=== PATIENT | female | born 1965 | race Caucasian/White ===

== ENCOUNTER 2018-09-04 10:05 | Emergency (ER) | payer BC, OTHER ==
[~2018-09-04] VITALS: Ht 165.1 cm; Wt 78.8 kg
[2018-09-04 10:52] LABS: BASOPHILS # (AUTO) 0.1 X10'3 (0-0.2); BASOPHILS % (AUTO) 0.9 % (0-1); EOSINOPHILS # (AUTO) 0.1 X10'3 (0-0.9); HEMATOCRIT 40.1 % (35.0-45.0); HEMOGLOBIN 13.7 g/dl (12.0-16.0); LYMPHOCYTES # (AUTO) 1.6 X10'3 (1.1-4.8); LYMPHOCYTES % (AUTO) 18.7 % (21-51); MEAN CORPUSCULAR HEMOGLOBIN 33.8 PG (27.0-31.0); MEAN CORPUSCULAR HGB CONC 34.3 g/dL (33.0-36.5); MEAN CORPUSCULAR VOLUME 98.7 FL (78-98); MEAN PLATELET VOLUME 8.1 FL (7.4-10.4); MONOCYTES # (AUTO) 0.9 X10'3 (0-0.9); MONOCYTES % (AUTO) 10.9 % (2-12); NEUTROPHILS # (AUTO) 5.7 X10'3 (1.8-7.7); NEUTROPHILS % (AUTO) 68.5 % (42-75); PLATELET COUNT 263 X10'3 (140-440); RED BLOOD COUNT 4.06 X10'6 (4.20-5.60); RED CELL DISTRIBUTION WIDTH 13.7 % (11.5-14.5); WHITE BLOOD COUNT 8.4 X10'3 (4.5-11.0)
[2018-09-04 10:54] LABS: PROTHROMBIN TIME 10.3 SECONDS (9.0-12.0)
[2018-09-04 10:58] LABS: ALANINE AMINOTRANSFERASE 50 U/L (12-78); ALBUMIN 2.8 G/DL (3.4-5.0); ALBUMIN/GLOBULIN RATIO 0.6 (1.1-1.5); ALKALINE PHOSPHATASE 138 IU/L (46-116); ANION GAP 11 (8-16); ASPARTATE AMINO TRANSFERASE 34 U/L (10-37); BILIRUBIN,TOTAL 0.8 MG/DL (0.1-1.0); BLOOD UREA NITROGEN 13 MG/DL (7-18); BUN/CREATININE RATIO 15.7 (6.6-38.0); CALCIUM 9.2 MG/DL (8.5-10.1); CHLORIDE 100 MMOL/L (99-107); CREATININE 0.83 MG/DL (0.40-0.90); GLUCOSE 106 MG/DL (70-104); POTASSIUM 3.7 MMOL/L (3.5-5.1); SODIUM 135 MMOL/L (135-145); TOTAL CARBON DIOXIDE 23.9 MMOL/L (24-32); TOTAL PROTEIN 7.2 G/DL (6.4-8.2); eGFR 72 ML/MIN
[2018-09-04 12:19] LABS: CLARITY,URINE SLIGHTLY CLOUDY (Clear); COLOR,URINE YELLOW (Yellow); GLUCOSE, URINE NEGATIVE (Neg); KETONES,URINE 40 mg/dl (Neg); LEUKOCYTE ESTERASE ,URINE TRACE (Neg); NITRITES, URINE POSITIVE (Neg); OCCULT BLOOD,URINE MODERATE (Neg); PH,URINE 6.5 (4.8-8.0); PROTEIN,URINE 100 mg/dl (Neg)
[2018-09-04] MEDS ORDERED: LIDOcaine Viscous 15ml cup PO ONE (12:20)
[2018-09-04] MEDS ORDERED: mag hydrox/Alum hydrox/simeth 30ml oral suspension PO ONE (12:20)
[2018-09-04 12:22] LABS: UA COLLECTION TYPE CLN CATCH MIDSTREAM
[2018-09-04 12:27] LABS: MUCUS STRANDS FEW /LPF (Neg); SQUAMOUS EPITHELIAL CELL,UR MODERATE /LPF (FEW)
[2018-09-04 12:29] LABS: BACTERIA,URINE 4+ /HPF (Neg); RBC,URINE 20-50 /HPF (0-2)
[2018-09-04] MEDS ORDERED: ciprofloxacin 250mg tablet PO ONE (12:40)
[2018-09-04] MEDS ORDERED: CIPR-230 PO (13:09)
[2018-09-04] MEDS ORDERED: PANT-47 PO (13:09)
[2018-09-04 13:26] VITALS: BP 140/72
== END 2018-09-04 13:27 | disposition home or self-care (01) ==
LOC: ER 10:06
DX: K92.1 Melena (principal); N39.0 Urinary tract infection, site not specified; Z88.8 Allergy status to other drugs, medicaments and biological substances; Z79.2 Long term (current) use of antibiotics; Z79.899 Other long term (current) drug therapy
CPT/HCPCS: 36415; 76700; 80053; 81001; 85025; 85610; 87077; 87088; 87186; 93005; 99284

== ENCOUNTER 2018-12-05 01:03 | Inpatient (IN) | payer OTHER ==
[~2018-12-05] VITALS: Ht 165.1 cm; Wt 80.0 kg
[2018-12-05] VITALS (23 sets, daily range): BP systolic 147–184; BP diastolic 64–111
[~2018-12-05 01:03] MED LIST: PANT-47 PO
--- NOTE | 2018-12-05 01:27 | NUR ---
CRUZ ARELLANO CHAPERONING DR Moody FOR RECTAL EXAM
[2018-12-05] MEDS ORDERED: normal saline 1000ML IV soln IV ONE (01:30)
--- NOTE | 2018-12-05 01:55 | NUR ---
GISSELLE ARELLANO CHAPERONING DURING GARCIA PLACEMENT AND SUGAR PLACEMENT
[2018-12-05] MEDS ORDERED: NO HOME MEDS (01:59)
[2018-12-05 02:02] LABS: BASOPHILS # (AUTO) 0.1 X10'3 (0-0.2); BASOPHILS % (AUTO) 1.8 % (0-1); EOSINOPHILS # (AUTO) 0.3 X10'3 (0-0.9); EOSINOPHILS % (AUTO) 4.1 % (0-6); HEMATOCRIT 44.4 % (35.0-45.0); LYMPHOCYTES # (AUTO) 2.1 X10'3 (1.1-4.8); LYMPHOCYTES % (AUTO) 27.9 % (21-51); MEAN CORPUSCULAR HEMOGLOBIN 33.6 PG (27.0-31.0); MEAN CORPUSCULAR HGB CONC 33.7 g/dL (33.0-36.5); MEAN CORPUSCULAR VOLUME 99.4 FL (78-98); MEAN PLATELET VOLUME 7.4 FL (7.4-10.4); MONOCYTES # (AUTO) 0.4 X10'3 (0-0.9); MONOCYTES % (AUTO) 5.6 % (2-12); NEUTROPHILS # (AUTO) 4.5 X10'3 (1.8-7.7); NEUTROPHILS % (AUTO) 60.6 % (42-75); PLATELET COUNT 271 X10'3 (140-440); RED BLOOD COUNT 4.47 X10'6 (4.20-5.60); RED CELL DISTRIBUTION WIDTH 15.6 % (11.5-14.5); WHITE BLOOD COUNT 7.4 X10'3 (4.5-11.0)
[2018-12-05 02:03] LABS: CLARITY,URINE CLEAR (Clear); COLOR,URINE YELLOW (Yellow); GLUCOSE, URINE NEGATIVE (Neg); KETONES,URINE NEGATIVE (Neg); LEUKOCYTE ESTERASE ,URINE SMALL (Neg); NITRITES, URINE NEGATIVE (Neg); OCCULT BLOOD,URINE TRACE-INTACT (Neg); PROTEIN,URINE NEGATIVE (Neg); UROBILINOGEN,URINE 0.2 E.U/dL (0.2-1.0)
[2018-12-05 02:08] LABS: UA COLLECTION TYPE FOLEY CATH
[2018-12-05 02:09] LABS: BACTERIA,URINE FEW /HPF (Neg); RBC,URINE 0-2 /HPF (0-2); SQUAMOUS EPITHELIAL CELL,UR FEW /LPF (FEW)
--- NOTE | 2018-12-05 02:17 | NUR ---
RECTUM REDUCED WITH CRUZ RN KINDERGARTEN TEACHER ASSISTANT
--- NOTE | 2018-12-05 02:17 | NUR ---
AREA IRRIGATED AND DRIED, [place] JELLY APPLIED AND GENTLE PUSH AND THE AFFECTED PROLAPSED AREA WENT INTO THE RECTUM AND IMMEDIATELY THE PATIENT WAS RELIEVED OF THE 'PRESSURE'
[2018-12-05 02:24] LABS: PARTIAL THROMBOPLASTIN TIME 28 SECONDS (22-32)
[2018-12-05 02:25] LABS: ALANINE AMINOTRANSFERASE 32 U/L (12-78); ALBUMIN 3.5 G/DL (3.4-5.0); ALBUMIN/GLOBULIN RATIO 0.9 (1.1-1.5); ALKALINE PHOSPHATASE 112 IU/L (46-116); ANION GAP 14 (8-16); ASPARTATE AMINO TRANSFERASE 29 U/L (10-37); BILIRUBIN,TOTAL 0.2 MG/DL (0.1-1.0); BLOOD UREA NITROGEN 10 MG/DL (7-18); BUN/CREATININE RATIO 13.2 (6.6-38.0); CALCIUM 8.8 MG/DL (8.5-10.1); CHLORIDE 106 MMOL/L (99-107); CREATININE 0.76 MG/DL (0.40-0.90); GLUCOSE 118 MG/DL (70-104); SODIUM 143 MMOL/L (135-145); TOTAL PROTEIN 7.2 G/DL (6.4-8.2); eGFR 80 ML/MIN
[2018-12-05] MEDS ORDERED: ondansetron/PF 4mg/2ml inj IV PRN ×2 (04:10→15:15)
[2018-12-05] MEDS ORDERED: magnesium hydroxide 30ml (MOM) UD suspension PO PRN (04:10)
[2018-12-05] MEDS ORDERED: acetaminophen 325mg tablet PO PRN ×2 (04:10)
[2018-12-05] MEDS ORDERED: mag hydrox/Alum hydrox/simeth 30ml oral suspension PO PRN (04:10)
[2018-12-05] MEDS ORDERED: morphine 2 MG/ML inj. syringe IV PRN (04:10)
[2018-12-05] MEDS ORDERED: HYDROcodone/acetaminophen 5mg/325mg tablet PO PRN (04:10)
--- NOTE | 2018-12-05 04:30 | NUR ---
Patient arrived to unit via wheelchair accompanied by pharmacy technician trainee. Patient able to ambulate to bed without assistance. Significant other at patient side. BP 182/90, patient states anxiety due to current situation and hustle and bustle of preparation. Will reassess when calmed. Patient to shower and prepped for surgery. BP now 155/90.
[2018-12-05] MEDS: dextrose 5%-1/2 normal saline 1,000 ML IV SCH ×2 (05:25→19:59)
--- NOTE | 2018-12-05 06:30 | NUR ---
Problems reprioritized. Patient report given, questions answered & plan of care reviewed with EILEEN Jackson.
[2018-12-05] MEDS: nicotine 21mg patch - 24 hr TD SCH (08:00)
[2018-12-05] MEDS ORDERED: ceFAZolin 1GM/D5W- ADD-VANTAGE 50 ML IV ONE (12:00)
[2018-12-05] MEDS ORDERED: ROPIVAcaine 0.5% (5mg/ml) 30ml vial ONE (14:31)
[2018-12-05] MEDS: cefazolin/dext.iso 2gm/100ml 100 ML IV SCH ×2 (14:40→21:24)
--- NOTE | 2018-12-05 14:57 | NUR ---
patient seen by Dr rene is for surgery, preop check list complete. Pre-op Ancef called into pharmacy and will be taken to OR . patient taken down 1450.report called to vika ARELLANO
[2018-12-05] MEDS ORDERED: sevoflurane 250ml liquid IH ONE (15:13)
[2018-12-05] MEDS ORDERED: ringers solution, lacted 1,000 ML IV SCH (15:13)
[2018-12-05] MEDS ORDERED: labetalol 20mg/4ml (5mg/ml) syringe IV PRN (15:15)
[2018-12-05] MEDS ORDERED: morphine 4 MG/ML inj SYRINge IV PRN ×2 (15:15)
[2018-12-05] MEDS ORDERED: hydrALAZINE 20mg/ml inj. IV PRN (15:15)
[2018-12-05] MEDS ORDERED: fentaNYL/PF 50MCG/1 ML 2ML syringe IV PRN (15:15)
[2018-12-05] MEDS ORDERED: midazolam 2 mg/2 ml injection ONE (15:18)
[2018-12-05] MEDS ORDERED: fentaNYL/PF 50MCG/1 ML 2ML syringe ONE ×3 (15:18→16:17)
[2018-12-05] MEDS ORDERED: propofol inj 20 ML IV ONE (15:19)
[2018-12-05] MEDS ORDERED: LIDOcaine 1%/PF 5ML 10 MG/ML VIAL ONE (15:19)
[2018-12-05] MEDS ORDERED: dexamethasone sod phosphate 4mg/ml inj. ONE (15:26)
[2018-12-05] MEDS ORDERED: ondansetron/PF 4mg/2ml inj ONE (15:26)
--- NOTE | 2018-12-05 17:35 | NUR ---
Received from OR via [facility], accompanied by Anesthesiologist DR. KOLB and report given by Anesthesiolgist. PT ARRIVED ON O2 VIA MASK AT 10L. IMMEDIATELY WANTED UP TO THE BATHROOM STATED SHE NEEDED TO "POOP". EXPLAINED TO PT THIS IS A NORMAL FEELING AND SHE CAN NOT GET UP TO COMMODE, PLACED PT ON BEDPAN. ROBERT WITH GOOD CSM. PULSES AND SECOND FLOOR OPERATOR WNL T/O. FC IN PLACE WITH CLEAR DARK URINE
[2018-12-05] MEDS: fentaNYL/PF 50MCG/1 ML 2ML syringe IV PRN ×2 (17:42→17:46)
--- NOTE | 2018-12-05 18:41 | NUR ---
patient still in OR report given to Mary ARELLANO
--- NOTE | 2018-12-05 18:45 | NUR ---
I got report from Renetta ARELLANO on patient who is still in recovery. 1847 Awilda ARELLANO from recovery called and gave me report, I had the opportunity to ask questions,
--- NOTE | 2018-12-05 19:00 | NUR ---
ALL CRITERIA FOR TRANSFER TO THE FLOOR HAS BEEN ACHIEVED. VSS. BED LOW, CALL LIGHT AND VS. SET IN PLACE. RN PRESENT TO ACCEPT CARE. PATIENT RESTING COMFORTABLY IN BED. BELONGINGS SENT WITH PATIENT. DRESSINGS CDI.
--- NOTE | 2018-12-05 19:04 | NUR ---
Patent arrived via bed with Claudette ARELLANO and another RN. Family at bedside, patient hooked up to post op vitals, and eating ice chips. Does not appear to be in no apparent distress. Will continue to monitor.
[2018-12-05] MEDS: HYDROcodone/acetaminophen 10/325mg tab PO PRN (19:57)
[2018-12-05] MEDS ORDERED: cloNIDine 0.1 mg tablet PO ONE (20:20)
[2018-12-06] VITALS: BP 121/65
[2018-12-06] MEDS: dextrose 5%-1/2 normal saline 1,000 ML IV SCH ×2 (00:09→07:24)
[2018-12-06] MEDS: morphine 2 MG/ML inj. syringe IV PRN ×3 (00:11→13:58)
--- NOTE | 2018-12-06 02:55 | NUR ---
Student documentation: I have reviewed and agree with all interventions, assessments performed and documented by EILEEN Karimi. Addendum: 12/06/18 at 0255 by Ruchi Mack RN Amended: Links added.
[2018-12-06 05:10] LABS: BASOPHILS % (AUTO) 0.2 % (0-1); EOSINOPHILS % (AUTO) 0 % (0-6); HEMATOCRIT 34.8 % (35.0-45.0); HEMOGLOBIN 11.9 g/dl (12.0-16.0); MEAN CORPUSCULAR HEMOGLOBIN 33.4 PG (27.0-31.0); MEAN CORPUSCULAR HGB CONC 34.2 g/dL (33.0-36.5); MEAN CORPUSCULAR VOLUME 97.6 FL (78-98); MEAN PLATELET VOLUME 7.3 FL (7.4-10.4); MONOCYTES # (AUTO) 0.5 X10'3 (0-0.9); MONOCYTES % (AUTO) 4.7 % (2-12); NEUTROPHILS # (AUTO) 9.7 X10'3 (1.8-7.7); NEUTROPHILS % (AUTO) 86.1 % (42-75); PLATELET COUNT 253 X10'3 (140-440); RED BLOOD COUNT 3.57 X10'6 (4.20-5.60); RED CELL DISTRIBUTION WIDTH 15.3 % (11.5-14.5); WHITE BLOOD COUNT 11.3 X10'3 (4.5-11.0)
[2018-12-06] MEDS: cefazolin/dext.iso 2gm/100ml 100 ML IV SCH ×3 (05:10→15:28)
[2018-12-06 05:48] LABS: ALBUMIN 2.7 G/DL (3.4-5.0); ANION GAP 9 (8-16); BLOOD UREA NITROGEN 6 MG/DL (7-18); BUN/CREATININE RATIO 8.3 (6.6-38.0); CALCIUM 8.3 MG/DL (8.5-10.1); CHLORIDE 104 MMOL/L (99-107); CREATININE 0.72 MG/DL (0.40-0.90); GLUCOSE 154 MG/DL (70-104); POTASSIUM 4.2 MMOL/L (3.5-5.1); SODIUM 137 MMOL/L (135-145); TOTAL CARBON DIOXIDE 24.1 MMOL/L (24-32); eGFR 85 ML/MIN
--- NOTE | 2018-12-06 06:33 | NUR ---
Patient in room [facility] 354. I have received report from Odalys ARELLANO and had the opportunity to ask questions and assume patient care.
[2018-12-06 07:08] VITALS: BP 140/72
[2018-12-06] MEDS: nicotine 21mg patch - 24 hr TD SCH (07:50)
[2018-12-06] MEDS: HYDROcodone/acetaminophen 10/325mg tab PO PRN ×3 (10:21→19:59)
[2018-12-06] MEDS: docusate sod 100mg capsule PO SCH (19:58)
[2018-12-06 20:00] VITALS: BP 144/72
[2018-12-07] VITALS: BP 128/70
[2018-12-07] MEDS: cefazolin/dext.iso 2gm/100ml 100 ML IV SCH ×3 (00:16→16:33)
[2018-12-07] MEDS: morphine 2 MG/ML inj. syringe IV PRN (00:25)
[2018-12-07] MEDS: HYDROcodone/acetaminophen 10/325mg tab PO PRN ×5 (03:13→23:08)
[2018-12-07 04:39] LABS: BASOPHILS # (AUTO) 0.1 X10'3 (0-0.2); BASOPHILS % (AUTO) 0.7 % (0-1); EOSINOPHILS # (AUTO) 0.1 X10'3 (0-0.9); EOSINOPHILS % (AUTO) 1.2 % (0-6); HEMATOCRIT 32.6 % (35.0-45.0); HEMOGLOBIN 11.4 g/dl (12.0-16.0); LYMPHOCYTES # (AUTO) 1.8 X10'3 (1.1-4.8); MEAN CORPUSCULAR HEMOGLOBIN 34.3 PG (27.0-31.0); MEAN CORPUSCULAR VOLUME 98.1 FL (78-98); MEAN PLATELET VOLUME 7.4 FL (7.4-10.4); MONOCYTES # (AUTO) 0.6 X10'3 (0-0.9); MONOCYTES % (AUTO) 6.8 % (2-12); NEUTROPHILS # (AUTO) 5.9 X10'3 (1.8-7.7); NEUTROPHILS % (AUTO) 70.3 % (42-75); PLATELET COUNT 212 X10'3 (140-440); RED BLOOD COUNT 3.33 X10'6 (4.20-5.60); RED CELL DISTRIBUTION WIDTH 15.6 % (11.5-14.5); WHITE BLOOD COUNT 8.4 X10'3 (4.5-11.0)
[2018-12-07 04:54] LABS: ALBUMIN 2.7 G/DL (3.4-5.0); ANION GAP 8 (8-16); BLOOD UREA NITROGEN 5 MG/DL (7-18); BUN/CREATININE RATIO 7.5 (6.6-38.0); CALCIUM 8.4 MG/DL (8.5-10.1); CHLORIDE 104 MMOL/L (99-107); CREATININE 0.67 MG/DL (0.40-0.90); GLUCOSE 121 MG/DL (70-104); POTASSIUM 3.3 MMOL/L (3.5-5.1); SODIUM 138 MMOL/L (135-145); TOTAL CARBON DIOXIDE 25.8 MMOL/L (24-32); eGFR > 90 ML/MIN
--- NOTE | 2018-12-07 06:10 | NUR ---
Patient in room [facility]BI[facility] 354. I have received report from Karla RN and Trev RN and had the opportunity to ask questions and assume patient care.
--- NOTE | 2018-12-07 06:28 | NUR ---
Problems reprioritized. Patient report given, questions answered & plan of care reviewed with Mona ARELLANO.
--- NOTE | 2018-12-07 06:29 | NUR ---
New bag of D5 1/2 normal saline hanged.
[2018-12-07 07:45] VITALS: BP 151/80
[2018-12-07] MEDS: nicotine 21mg patch - 24 hr TD SCH (08:00)
[2018-12-07] MEDS: docusate sod 100mg capsule PO SCH ×2 (08:29→20:08)
[2018-12-07] MEDS: dextrose 5%-1/2 normal saline 1,000 ML IV SCH ×2 (11:50→19:57)
[2018-12-07] MEDS ORDERED: potassium Cl 20 mEq SR tablet PO STA (11:50)
[2018-12-07 11:56] VITALS: BP 140/68
[2018-12-07 19:00] VITALS: BP 153/74
--- NOTE | 2018-12-07 19:44 | NUR ---
Patient in room [facility]BI[facility] 354. I have received report from Anupama ARELLANO and had the opportunity to ask questions and assume patient care.
[2018-12-08] VITALS: BP 124/59
[2018-12-08] MEDS: cefazolin/dext.iso 2gm/100ml 100 ML IV SCH ×2 (00:26→08:00)
[2018-12-08 04:52] LABS: BASOPHILS # (AUTO) 0.1 X10'3 (0-0.2); BASOPHILS % (AUTO) 0.6 % (0-1); EOSINOPHILS # (AUTO) 0.2 X10'3 (0-0.9); HEMATOCRIT 33.5 % (35.0-45.0); HEMOGLOBIN 11.6 g/dl (12.0-16.0); LYMPHOCYTES % (AUTO) 23.6 % (21-51); MEAN CORPUSCULAR HEMOGLOBIN 34.5 PG (27.0-31.0); MEAN CORPUSCULAR HGB CONC 34.6 g/dL (33.0-36.5); MEAN CORPUSCULAR VOLUME 99.6 FL (78-98); MEAN PLATELET VOLUME 7.3 FL (7.4-10.4); MONOCYTES # (AUTO) 0.6 X10'3 (0-0.9); MONOCYTES % (AUTO) 7.1 % (2-12); NEUTROPHILS # (AUTO) 5.5 X10'3 (1.8-7.7); NEUTROPHILS % (AUTO) 65.7 % (42-75); PLATELET COUNT 225 X10'3 (140-440); RED BLOOD COUNT 3.36 X10'6 (4.20-5.60); RED CELL DISTRIBUTION WIDTH 15.3 % (11.5-14.5); WHITE BLOOD COUNT 8.4 X10'3 (4.5-11.0)
[2018-12-08 04:58] LABS: ALBUMIN 2.6 G/DL (3.4-5.0); ANION GAP 6 (8-16); BLOOD UREA NITROGEN 3 MG/DL (7-18); BUN/CREATININE RATIO 4.5 (6.6-38.0); CALCIUM 8.9 MG/DL (8.5-10.1); CHLORIDE 105 MMOL/L (99-107); CREATININE 0.67 MG/DL (0.40-0.90); GLUCOSE 95 MG/DL (70-104); POTASSIUM 3.9 MMOL/L (3.5-5.1); SODIUM 139 MMOL/L (135-145); TOTAL CARBON DIOXIDE 27.6 MMOL/L (24-32); eGFR > 90 ML/MIN
[2018-12-08] MEDS: HYDROcodone/acetaminophen 10/325mg tab PO PRN ×2 (06:04→10:15)
[2018-12-08 07:00] VITALS: BP 146/76
--- NOTE | 2018-12-08 07:07 | NUR ---
Problems reprioritized. Patient report given, questions answered & plan of care reviewed with Lilliana ARELLANO.
[2018-12-08] MEDS: nicotine 21mg patch - 24 hr TD SCH (08:00)
[2018-12-08] MEDS: docusate sod 100mg capsule PO SCH (08:22)
--- NOTE | 2018-12-08 09:06 | NUR ---
PER DR SEGURA, OK TO NON ADMIN IV ABX D/T PTS IV FELL OUT.
[2018-12-08 11:40] VITALS: BP 141/81
[2018-12-08] MEDS ORDERED: HYDR-4383 PO (11:43)
[2018-12-08] MEDS ORDERED: DOCU-28 PO (11:43)
--- NOTE | 2018-12-08 13:30 | NUR ---
PT DISCHARGED IN STABLE CONDITION. LEFT FACILITY IN STABLE CONDITION. NO IV AT TIME OF DC. ALL BELONGINGS IN HAND, INCLUDING RX FOR NORCO DELIVERED BY [facility]. FOLLOW UP INSTRUCTIONS GIVEN, ALL QUESTIONS ANSWERED. Addendum: 12/08/18 at 1508 by Josiane Davis RN Amended: Links added.
== END 2018-12-08 13:34 | disposition home or self-care (01) | DRG 395 ==
LOC: ER 01:03 → SUR 3N 04:00 → CMPBEDREQ 05:01
PROVIDERS: ADMIT Internal Medicine; ATTEND Internal Medicine
PROC: 0DBP8ZZ Excision of Rectum, Via Natural or Artificial Opening Endoscopic (ICD-10-PCS; principal; 2018-12-05 15:13)
DX: K62.3 Rectal prolapse (principal); F12.90 Cannabis use, unspecified, uncomplicated; F17.210 Nicotine dependence, cigarettes, uncomplicated; I10 Essential (primary) hypertension; K62.1 Rectal polyp; K64.4 Residual hemorrhoidal skin tags; K59.00 Constipation, unspecified; Z88.8 Allergy status to other drugs, medicaments and biological substances
CPT/HCPCS: 96360; 99285; Z7506; 36415; 71045; 80048; 80053; 81001; 85025; 85610; 85730; 86885; 86900; 86901; 87070; 87088; 93005; A6224; A6449; A7000; G0378; J0690; J1100; J2001; J2250; J2270; J2405; J2704; J2795; J3010; J3490; J7120

== ENCOUNTER 2019-01-23 09:05 | Emergency (ER) | payer OTHER ==
[~2019-01-23] VITALS: Ht 165.1 cm; Wt 76.7 kg
[2019-01-23] VITALS (7 sets, daily range): BP systolic 129–159; BP diastolic 48–81
[~2019-01-23 09:05] MED LIST changes: +DOCU-28 PO; +HYDR-4383 PO; -PANT-47 PO
--- NOTE | 2019-01-23 09:15 | NUR ---
PT. WAS CHECKED IN THROUGH ER AND TRIAGED. PT. STATED THAT SHE HAD A PROLAPSED RECTUM THAT WAS FIXED BY DR. CASTILLO IN OCTOBER. SHE STATED SHE SAW HIM YESTERDAY IN HIS OFFFICE AND WANTED HER TO COME TO THE HOSPITAL SO SHE COULD BE WORKED INTO HIS OR SCHEDULE TODAY.... TYPING ELEMENT MACHINE OPERATOR WAS NOTIFIED AND SHE IS TRYING TO FIND DR. CASTILLO TO WRITE ORDERS. I INFORMED THE PT. THAT NEW PAPER WORK WOULD BE DONE AND SHE WOULD GO TO THE PASS UNIT AND WAIT FOR DR. CASTILLO...
[2019-01-23] MEDS ORDERED: ondansetron/PF 4mg/2ml inj IV ONE (10:55)
[2019-01-23] MEDS ORDERED: normal saline 1000ML IV soln IVB ONE (10:55)
[2019-01-23] MEDS ORDERED: morphine 4 MG/ML inj SYRINge IV PRN ×3 (10:55→11:35)
[2019-01-23 11:27] LABS: BASOPHILS # (AUTO) 0.1 X10'3 (0-0.2); EOSINOPHILS # (AUTO) 0.2 X10'3 (0-0.9); EOSINOPHILS % (AUTO) 2.7 % (0-6); HEMATOCRIT 42.2 % (35.0-45.0); HEMOGLOBIN 14.6 g/dl (12.0-16.0); LYMPHOCYTES # (AUTO) 2.3 X10'3 (1.1-4.8); LYMPHOCYTES % (AUTO) 32.2 % (21-51); MEAN CORPUSCULAR HEMOGLOBIN 35.4 PG (27.0-31.0); MEAN CORPUSCULAR HGB CONC 34.5 g/dL (33.0-36.5); MEAN CORPUSCULAR VOLUME 102.6 FL (78-98); MEAN PLATELET VOLUME 7.2 FL (7.4-10.4); MONOCYTES # (AUTO) 0.3 X10'3 (0-0.9); MONOCYTES % (AUTO) 4.1 % (2-12); NEUTROPHILS # (AUTO) 4.3 X10'3 (1.8-7.7); PLATELET COUNT 303 X10'3 (140-440); RED BLOOD COUNT 4.11 X10'6 (4.20-5.60); RED CELL DISTRIBUTION WIDTH 16.6 % (11.5-14.5); WHITE BLOOD COUNT 7.3 X10'3 (4.5-11.0)
[2019-01-23] MEDS ORDERED: ringers solution, lacted 1,000 ML IV SCH (11:32)
[2019-01-23] MEDS ORDERED: ondansetron/PF 4mg/2ml inj IV PRN (11:35)
[2019-01-23] MEDS ORDERED: proCHLORperazine 10 MG/2 ml inj IV PRN (11:35)
--- NOTE | 2019-01-23 11:40 | NUR ---
TO SAME DAY SURGERY PER JUAN J, ACCOMPANIED BY STAFF AND SIG OTHER. PATIENT ALERT AND COOPERATIVE. IV PATENT AND INFUSING WELL.
[2019-01-23 11:43] LABS: ALANINE AMINOTRANSFERASE 24 U/L (12-78); ALBUMIN 3.4 G/DL (3.4-5.0); ALBUMIN/GLOBULIN RATIO 0.9 (1.1-1.5); ALKALINE PHOSPHATASE 99 IU/L (46-116); ANION GAP 9 (8-16); ASPARTATE AMINO TRANSFERASE 17 U/L (10-37); BILIRUBIN,TOTAL 0.3 MG/DL (0.1-1.0); BLOOD UREA NITROGEN 8 MG/DL (7-18); BUN/CREATININE RATIO 10.7 (6.6-38.0); CALCIUM 9.1 MG/DL (8.5-10.1); CHLORIDE 106 MMOL/L (99-107); CREATININE 0.75 MG/DL (0.40-0.90); GLUCOSE 100 MG/DL (70-104); POTASSIUM 3.7 MMOL/L (3.5-5.1); SODIUM 142 MMOL/L (135-145); TOTAL CARBON DIOXIDE 27.3 MMOL/L (24-32); eGFR 81 ML/MIN
[2019-01-23 11:51] LABS: CLARITY,URINE CLEAR (Clear); COLOR,URINE YELLOW (Yellow); GLUCOSE, URINE NEGATIVE (Neg); KETONES,URINE NEGATIVE (Neg); LEUKOCYTE ESTERASE ,URINE NEGATIVE (Neg); NITRITES, URINE NEGATIVE (Neg); OCCULT BLOOD,URINE NEGATIVE (Neg); PH,URINE 6.5 (4.8-8.0); PROTEIN,URINE 30 mg/dl (Neg); URINE HCG NEGATIVE (NEG)
[2019-01-23 11:52] LABS: UA COLLECTION TYPE CLN CATCH MIDSTREAM
[2019-01-23] MEDS ORDERED: ipratropium/albuterol 3ml nebule NEB PRN (11:55)
[2019-01-23 11:59] LABS: BACTERIA,URINE FEW /HPF (Neg); MUCUS STRANDS FEW /LPF (Neg); RBC,URINE 0-2 /HPF (0-2); SQUAMOUS EPITHELIAL CELL,UR MODERATE /LPF (FEW)
[2019-01-23] MEDS ORDERED: ROPIVAcaine 0.5% (5mg/ml) 30ml vial ONE (12:01)
[2019-01-23] MEDS ORDERED: sevoflurane 250ml liquid IH ONE (12:17)
[2019-01-23] MEDS ORDERED: dexamethasone sod phosphate 10mg/ml inj ONE (12:17)
[2019-01-23] MEDS ORDERED: midazolam 2 mg/2 ml injection ONE (12:21)
[2019-01-23] MEDS ORDERED: fentaNYL/PF 50MCG/1 ML 2ML syringe ONE (12:21)
[2019-01-23] MEDS ORDERED: LIDOcaine 2% (20mg/ml) 5ml vial ONE (12:23)
[2019-01-23] MEDS ORDERED: propofol inj 20 ML IV ONE ×2 (12:23→13:04)
[2019-01-23] MEDS ORDERED: labetalol 20mg/4ml (5mg/ml) syringe IV ONE (13:08)
--- NOTE | 2019-01-23 13:20 | NUR ---
Received from OR via [facility], accompanied by Anesthesiologist DAVE and report given by Anesthesiolgist. PT SLEEPY, OXYGENATING WELL ON 10 LPM O2 VIA MASK, NO RESP DISTRESS NOTED. PT DENIES NAUSEA [place] PAIN AT THIS TIME. BULKY DSG TO LISETTE ANAL AREA, CDI. VSS.
--- NOTE | 2019-01-23 15:00 | NUR ---
PT DENIES PAIN, VSS. TOLERATING PO FLUIDS WELL. DC INSTRUCTIONS EXPLAINED TO PT AND HER S/O, THEY VERBALIZED UNDERSTANDING. PAIN PRESCRIPTION PROVIDED TO PT. DCD IN STABLE CONDITION, TAKEN TO CAR VIA WC.
== END 2019-01-23 15:00 | disposition home or self-care (01) ==
LOC: ER 09:06
DX: Q43.8 Other specified congenital malformations of intestine (principal); I10 Essential (primary) hypertension; F17.210 Nicotine dependence, cigarettes, uncomplicated; R06.02 Shortness of breath; Z88.5 Allergy status to narcotic agent; Z98.890 Other specified postprocedural states
CPT/HCPCS: 36415; 45910; 80053; 81001; 81025; 85025; 87088; 94640; 94760; 96374; 96375; 99285; A6224; J1100; J2001; J2250; J2270; J2405; J2704; J3010; J7030; A4215; A4618; A6449; A7000; J2795; J3490; J7120

== ENCOUNTER 2020-01-19 20:08 | Emergency (ER) | payer MEDICAID, SELFPAY ==
[~2020-01-19] VITALS: Ht 165.1 cm; Wt 77.2 kg
[2020-01-19] MEDS ORDERED: normal saline 1000ML IV soln IVB ONE (20:25)
[2020-01-19 20:43] LABS: ALANINE AMINOTRANSFERASE 28 U/L (12-78); ALBUMIN 3.5 G/DL (3.4-5.0); ALBUMIN/GLOBULIN RATIO 1.1 (1.1-1.5); ALKALINE PHOSPHATASE 100 IU/L (46-116); ANION GAP 14 (8-16); ASPARTATE AMINO TRANSFERASE 17 U/L (10-37); BILIRUBIN,TOTAL 0.2 MG/DL (0.1-1.0); BLOOD UREA NITROGEN 6 MG/DL (7-18); BUN/CREATININE RATIO 4.6 (6.6-38.0); CALCIUM 8.2 MG/DL (8.5-10.1); CHLORIDE 113 MMOL/L (99-107); ETHANOL 0.181 GM/DL (0.0-0.010); GLUCOSE 158 MG/DL (70-104); SODIUM 148 MMOL/L (135-145); TOTAL CARBON DIOXIDE 21.3 MMOL/L (24-32); TOTAL PROTEIN 6.8 G/DL (6.4-8.2); eGFR 43 ML/MIN
[2020-01-19 20:45] LABS: BASOPHILS # (AUTO) 0.1 X10'3 (0-0.2); BASOPHILS % (AUTO) 0.8 % (0-1); EOSINOPHILS # (AUTO) 0.3 X10'3 (0-0.9); EOSINOPHILS % (AUTO) 2.4 % (0-6); HEMATOCRIT 42.7 % (35.0-45.0); HEMOGLOBIN 14.4 g/dl (12.0-16.0); LYMPHOCYTES % (AUTO) 29.7 % (21-51); MEAN CORPUSCULAR HEMOGLOBIN 34.4 PG (27.0-31.0); MEAN CORPUSCULAR HGB CONC 33.8 g/dL (33.0-36.5); MEAN CORPUSCULAR VOLUME 101.8 FL (78-98); MEAN PLATELET VOLUME 7.5 FL (7.4-10.4); MONOCYTES # (AUTO) 0.6 X10'3 (0-0.9); MONOCYTES % (AUTO) 4.5 % (2-12); NEUTROPHILS # (AUTO) 8.4 X10'3 (1.8-7.7); NEUTROPHILS % (AUTO) 62.6 % (42-75); PLATELET COUNT 252 X10'3 (140-440); WHITE BLOOD COUNT 13.4 X10'3 (4.5-11.0)
[2020-01-19 20:47] LABS: POTASSIUM 2.9 MMOL/L (3.5-5.1)
[2020-01-19] MEDS ORDERED: potassium Cl 20 mEq SR tablet PO ONE (20:50)
[2020-01-19] MEDS ORDERED: potassium Cl 10 mEq/100mL bag IV ONE (20:50)
[2020-01-19 21:28] LABS: CLARITY,URINE CLOUDY (Clear); COLOR,URINE YELLOW (Yellow); GLUCOSE, URINE 100 mg/dl (Neg); KETONES,URINE NEGATIVE (Neg); LEUKOCYTE ESTERASE ,URINE MODERATE (Neg); NITRITES, URINE NEGATIVE (Neg); OCCULT BLOOD,URINE LARGE (Neg); PROTEIN,URINE >=300 mg/dl (Neg); UROBILINOGEN,URINE 0.2 E.U/dL (0.2-1.0)
[2020-01-19 21:35] LABS: UA COLLECTION TYPE CLN CATCH MIDSTREAM
--- NOTE | 2020-01-19 21:35 | NUR ---
Spoke W/ pt. family both Son Lyndon Trevizo and Linette Trevizo. daughter stated that she would be avalible for a ride.
[2020-01-19 21:36] LABS: BACTERIA,URINE FEW /HPF (Neg); SQUAMOUS EPITHELIAL CELL,UR FEW /LPF (FEW); WBC CLUMPS,URINE MODERATE /HPF (NEGATIVE); WBC,URINE TNTC /HPF (0-4)
[2020-01-19 22:20] LABS: URINE AMPHETAMINE SCREEN NEGATIVE (Neg); URINE BARBITUATE SCREEN NEGATIVE (Neg); URINE BENZODIAZEPINES SCREEN NEGATIVE (Neg); URINE CANNABINOID SCREEN NEGATIVE (Neg); URINE COCAINE SCREEN NEGATIVE (Neg); URINE METHADONE SCREEN NEGATIVE (Neg); URINE OPIATE SCREEN NEGATIVE (Neg); URINE PHENCYCLIDINE SCREEN NEGATIVE (Neg)
[2020-01-19 22:29] VITALS: BP 131/64
== END 2020-01-19 22:30 | disposition home or self-care (01) ==
LOC: ER 20:09
DX: S09.90XA Unspecified injury of head, initial encounter (principal); S16.1XXA Strain of muscle, fascia and tendon at neck level, initial encounter; E87.6 Hypokalemia; R55 Syncope and collapse; F10.920 Alcohol use, unspecified with intoxication, uncomplicated; I10 Essential (primary) hypertension; J45.909 Unspecified asthma, uncomplicated; F17.200 Nicotine dependence, unspecified, uncomplicated; Z98.51 Tubal ligation status; Z98.890 Other specified postprocedural states; Z72.89 Other problems related to lifestyle; Z88.8 Allergy status to other drugs, medicaments and biological substances; Z79.899 Other long term (current) drug therapy; W19.XXXA Unspecified fall, initial encounter; Y93.89 Activity, other specified; Y92.828 Other wilderness area as the place of occurrence of the external cause; Y99.8 Other external cause status; Y90.9 Presence of alcohol in blood, level not specified
CPT/HCPCS: 36415; 70450; 71045; 72125; 80053; 80305; 80320; 81001; 85025; 87088; 93005; 96361; 96365; 99285; J3480; J7030; 96374

== ENCOUNTER 2020-09-20 11:14 | Emergency (ER) | payer MEDICAID ==
[~2020-09-20] VITALS: Ht 165.1 cm; Wt 82.4 kg
[2020-09-20] MEDS ORDERED: orphenadrine citrate 60mg/2ml inj. IM ONE (11:40)
[2020-09-20] MEDS ORDERED: ketorolac tromethamine 15mg/ml inj. IM ONE (11:40)
[2020-09-20] MEDS ORDERED: IBUP-1984 PO (11:41)
[2020-09-20] MEDS ORDERED: ORPH100T2 PO (11:41)
[2020-09-20 11:58] VITALS: BP 164/71
== END 2020-09-20 12:04 | disposition home or self-care (01) ==
LOC: ER 11:14
DX: M54.42 Lumbago with sciatica, left side (principal); G89.29 Other chronic pain; I10 Essential (primary) hypertension; J45.909 Unspecified asthma, uncomplicated; Z98.890 Other specified postprocedural states; Z98.51 Tubal ligation status; Z72.89 Other problems related to lifestyle; Z79.899 Other long term (current) drug therapy
CPT/HCPCS: 96372; 99284; J1885; J2360

== ENCOUNTER 2021-11-05 10:47 | Emergency (ER) | payer MEDICAID ==
[~2021-11-05] VITALS: Ht 165.1 cm; Wt 84.1 kg
[~2021-11-05 10:47] MED LIST changes: +ORPH100T2 PO
[2021-11-05 11:18] LABS: BASOPHILS # (AUTO) 0.1 X10'3 (0-0.2); EOSINOPHILS # (AUTO) 0.1 X10'3 (0-0.9); EOSINOPHILS % (AUTO) 1.3 % (0-6); HEMATOCRIT 42.8 % (35.0-45.0); HEMOGLOBIN 14.6 g/dl (12.0-16.0); LYMPHOCYTES # (AUTO) 1.8 X10'3 (1.1-4.8); LYMPHOCYTES % (AUTO) 22.7 % (21-51); MEAN CORPUSCULAR HEMOGLOBIN 34.8 PG (27.0-31.0); MEAN CORPUSCULAR HGB CONC 34.2 g/dL (33.0-36.5); MEAN CORPUSCULAR VOLUME 101.8 FL (78-98); MONOCYTES # (AUTO) 0.4 X10'3 (0-0.9); MONOCYTES % (AUTO) 4.5 % (2-12); NEUTROPHILS # (AUTO) 5.7 X10'3 (1.8-7.7); NEUTROPHILS % (AUTO) 70.5 % (42-75); PLATELET COUNT 256 X10'3 (140-440); RED CELL DISTRIBUTION WIDTH 14.7 % (11.5-14.5); WHITE BLOOD COUNT 8.1 X10'3 (4.5-11.0)
[2021-11-05 11:48] LABS: ALANINE AMINOTRANSFERASE 30 U/L (12-78); ALBUMIN 3.9 G/DL (3.4-5.0); ALBUMIN/GLOBULIN RATIO 1.1 (1.1-1.5); ALKALINE PHOSPHATASE 90 IU/L (46-116); ANION GAP 13 (8-16); ASPARTATE AMINO TRANSFERASE 30 U/L (10-37); BILIRUBIN,TOTAL 0.5 MG/DL (0.1-1.0); BLOOD UREA NITROGEN 10 MG/DL (7-18); CALCIUM 8.9 MG/DL (8.5-10.1); CHLORIDE 106 MMOL/L (99-107); CREATININE 0.83 MG/DL (0.40-0.90); GLUCOSE 106 MG/DL (70-104); LIPASE 62 U/L (73-393); POTASSIUM 4.2 MMOL/L (3.5-5.1); SODIUM 143 MMOL/L (135-145); TOTAL CARBON DIOXIDE 23.9 MMOL/L (24-32); TOTAL PROTEIN 7.4 G/DL (6.4-8.2); eGFR 72 ML/MIN
[2021-11-05 12:08] LABS: CLARITY,URINE CLOUDY (Clear); COLOR,URINE YELLOW (Yellow); GLUCOSE, URINE NEGATIVE (Neg); KETONES,URINE NEGATIVE (Neg); LEUKOCYTE ESTERASE ,URINE NEGATIVE (Neg); NITRITES, URINE NEGATIVE (Neg); OCCULT BLOOD,URINE NEGATIVE (Neg); PH,URINE 6.5 (4.8-8.0); PROTEIN,URINE TRACE mg/dl (Neg); UROBILINOGEN,URINE 0.2 E.U/dL (0.2-1.0)
[2021-11-05 12:09] LABS: UA COLLECTION TYPE CLN CATCH MIDSTREAM
[2021-11-05 12:13] LABS: URINE HCG NEGATIVE (NEG)
[2021-11-05 12:16] LABS: BACTERIA,URINE 2+ /HPF (Neg); MUCUS STRANDS FEW /LPF (Neg); SQUAMOUS EPITHELIAL CELL,UR MANY /LPF (FEW); WBC,URINE 0-4 /HPF (0-4)
[2021-11-05] MEDS ORDERED: morphine 4 MG/ML inj SYRINge IV PRN (14:00)
[2021-11-05] MEDS ORDERED: IOHEXOL 12MG/ML oral solution 500 ML BOTTLE PO ONE (14:00)
[2021-11-05] MEDS ORDERED: normal saline 1000ML IV soln IVB ONE (14:00)
[2021-11-05] MEDS ORDERED: ondansetron/PF 4mg/2ml inj IV ONE (14:00)
--- NOTE | 2021-11-05 15:31 | NUR ---
pt is resting quietly on gurney, drinking contrast, lilly well, no n/v, career technology teacher is aware
--- NOTE | 2021-11-05 15:56 | NUR ---
PT IS RESTING QUIETLY, SAID PAIN IS DOWN TO 4/10, PLAYING ON PHONE
--- NOTE | 2021-11-05 18:39 | NUR ---
pt stated she had a large bowel movement before going to CT earlier. Pt is resting quietly on bed, family at bedside
[2021-11-05 19:27] VITALS: BP 141/78
== END 2021-11-05 19:28 | disposition home or self-care (01) ==
LOC: ER 10:48
DX: G89.29 Other chronic pain (principal); R10.9 Unspecified abdominal pain; K59.00 Constipation, unspecified; R19.7 Diarrhea, unspecified; I10 Essential (primary) hypertension; J45.909 Unspecified asthma, uncomplicated; Z88.5 Allergy status to narcotic agent; Z79.899 Other long term (current) drug therapy
CPT/HCPCS: 36415; 74176; 80053; 81001; 81025; 83690; 85025; 96374; 96375; 99285; J2270; J2405; J7030

== ENCOUNTER 2022-06-21 12:30 | Emergency (ER) | payer MEDICAID ==
[~2022-06-21] VITALS: Ht 162.6 cm; Wt 77.3 kg
[2022-06-21 12:55] VITALS: BP 144/82
[2022-06-21 13:56] LABS: BASOPHILS % (AUTO) 0.6 % (0-1); EOSINOPHILS # (AUTO) 0.1 X10'3 (0-0.9); EOSINOPHILS % (AUTO) 2.1 % (0-6); HEMOGLOBIN 12.3 g/dl (12.0-16.0); LYMPHOCYTES # (AUTO) 1.5 X10'3 (1.1-4.8); LYMPHOCYTES % (AUTO) 25.3 % (21-51); MEAN CORPUSCULAR HEMOGLOBIN 46.2 PG (27.0-31.0); MEAN CORPUSCULAR HGB CONC 35.1 g/dL (33.0-36.5); MEAN CORPUSCULAR VOLUME 131.7 FL (78-98); MEAN PLATELET VOLUME 8.2 FL (7.4-10.4); MONOCYTES # (AUTO) 0.2 X10'3 (0-0.9); MONOCYTES % (AUTO) 4.1 % (2-12); NEUTROPHILS # (AUTO) 4.1 X10'3 (1.8-7.7); NEUTROPHILS % (AUTO) 67.9 % (42-75); PLATELET COUNT 183 X10'3 (140-440); RED BLOOD COUNT 2.66 X10'6 (4.20-5.60); RED CELL DISTRIBUTION WIDTH 16.9 % (11.5-14.5)
[2022-06-21 14:02] LABS: ALANINE AMINOTRANSFERASE 52 U/L (12-78); ALBUMIN 3.2 G/DL (3.4-5.0); ALKALINE PHOSPHATASE 134 IU/L (46-116); ASPARTATE AMINO TRANSFERASE 70 U/L (10-37); BILIRUBIN,TOTAL 1.1 MG/DL (0.1-1.0); BLOOD UREA NITROGEN 13 MG/DL (7-18); BUN/CREATININE RATIO 14.3 (6.6-38.0); CALCIUM 8.6 MG/DL (8.5-10.1); CHLORIDE 104 MMOL/L (99-107); CREATININE 0.91 MG/DL (0.40-0.90); GLUCOSE 141 MG/DL (70-104); LIPASE 60 U/L (73-393); TOTAL CARBON DIOXIDE 28.8 MMOL/L (24-32); TOTAL PROTEIN 6.5 G/DL (6.4-8.2); eGFR 64 ML/MIN
[2022-06-21 14:17] LABS: ANION GAP 7 (8-16); SODIUM 140 MMOL/L (135-145)
[2022-06-21 14:19] LABS: POTASSIUM 2.6 MMOL/L (3.5-5.1)
[2022-06-21 14:21] LABS: CLARITY,URINE SLIGHTLY CLOUDY (Clear); COLOR,URINE YELLOW (Yellow); GLUCOSE, URINE NEGATIVE (Neg); KETONES,URINE 15 mg/dl (Neg); LEUKOCYTE ESTERASE ,URINE NEGATIVE (Neg); NITRITES, URINE NEGATIVE (Neg); OCCULT BLOOD,URINE NEGATIVE (Neg); PROTEIN,URINE 30 mg/dl (Neg)
[2022-06-21 14:23] LABS: ANISOCYTOSIS 1+; PLATELET ESTIMATE NORMAL
[2022-06-21 14:24] LABS: URINE HCG NEGATIVE (NEG)
[2022-06-21 14:27] LABS: UA COLLECTION TYPE VOIDED
[2022-06-21 14:29] LABS: BACTERIA,URINE 3+ /HPF (Neg); RBC,URINE NONE SEEN /HPF (0-2); WBC,URINE 0-4 /HPF (0-4)
[2022-06-21 14:30] LABS: SQUAMOUS EPITHELIAL CELL,UR MANY /LPF (FEW)
--- NOTE | 2022-06-21 15:09 | NUR ---
spoke with Dr. sow regarding patients potassium of 2.6, he gave a verbal order for 40 mEq potassium effervescent PO once now. Order placed.
[2022-06-21] MEDS ORDERED: POTASSIUM BICARB 20meq eff tab 20 MEQ TABLET.EFF PO ONE (15:10)
--- NOTE | 2022-06-21 15:26 | NUR ---
Attempted to call patient back to a room to treat the potassium level of 2.6. Patient was not in lobby so I called at listed number with no answer either. Left a voicemail message to call ER back or to return for medical care. Dr. Walker aware.
[2022-06-21] MEDS ORDERED: SUCR1TAB34 PO (21:12)
== END 2022-06-21 15:27 | disposition left against medical advice (07) ==
LOC: ER 12:31
DX: R11.2 Nausea with vomiting, unspecified (principal); Z53.21 Procedure and treatment not carried out due to patient leaving prior to being seen by health care provider; R10.9 Unspecified abdominal pain
CPT/HCPCS: 36415; 80053; 81001; 81025; 83690; 85008; 85025

== ENCOUNTER 2022-06-21 15:47 | Emergency (ER) | payer MEDICAID ==
[~2022-06-21] VITALS: Ht 162.6 cm; Wt 77.3 kg
[2022-06-21] MEDS ORDERED: POTASSIUM BICARB 20meq eff tab 20 MEQ TABLET.EFF PO ONE ×2 (15:57→19:55)
[2022-06-21 18:56] LABS: BASOPHILS % (AUTO) 0.6 % (0-1); EOSINOPHILS # (AUTO) 0.1 X10'3 (0-0.9); EOSINOPHILS % (AUTO) 1.9 % (0-6); HEMATOCRIT 34.9 % (35.0-45.0); HEMOGLOBIN 12.2 g/dl (12.0-16.0); LYMPHOCYTES # (AUTO) 2.3 X10'3 (1.1-4.8); LYMPHOCYTES % (AUTO) 30.9 % (21-51); MEAN CORPUSCULAR HEMOGLOBIN 46.1 PG (27.0-31.0); MEAN CORPUSCULAR HGB CONC 34.9 g/dL (33.0-36.5); MEAN CORPUSCULAR VOLUME 132.1 FL (78-98); MEAN PLATELET VOLUME 7.9 FL (7.4-10.4); MONOCYTES # (AUTO) 0.3 X10'3 (0-0.9); MONOCYTES % (AUTO) 4.3 % (2-12); NEUTROPHILS # (AUTO) 4.6 X10'3 (1.8-7.7); NEUTROPHILS % (AUTO) 62.3 % (42-75); PLATELET COUNT 189 X10'3 (140-440); RED BLOOD COUNT 2.64 X10'6 (4.20-5.60); RED CELL DISTRIBUTION WIDTH 16.9 % (11.5-14.5); WHITE BLOOD COUNT 7.3 X10'3 (4.5-11.0)
[2022-06-21 19:10] LABS: ALANINE AMINOTRANSFERASE 47 U/L (12-78); ALBUMIN 3.2 G/DL (3.4-5.0); ALKALINE PHOSPHATASE 129 IU/L (46-116); ANION GAP 9 (8-16); ASPARTATE AMINO TRANSFERASE 62 U/L (10-37); BILIRUBIN,TOTAL 0.9 MG/DL (0.1-1.0); BLOOD UREA NITROGEN 14 MG/DL (7-18); BUN/CREATININE RATIO 16.1 (6.6-38.0); CALCIUM 8.6 MG/DL (8.5-10.1); CHLORIDE 104 MMOL/L (99-107); CREATININE 0.87 MG/DL (0.40-0.90); GLUCOSE 112 MG/DL (70-104); LIPASE 58 U/L (73-393); POTASSIUM 3.3 MMOL/L (3.5-5.1); SODIUM 140 MMOL/L (135-145); TOTAL CARBON DIOXIDE 27.3 MMOL/L (24-32); TOTAL PROTEIN 6.3 G/DL (6.4-8.2); eGFR 68 ML/MIN
[2022-06-21] MEDS ORDERED: ringers solution, lactated 1000ml IV soln IV ONE (19:55)
[2022-06-21] MEDS ORDERED: sucralfate 1 gm tablet PO ONE (20:20)
[2022-06-21] MEDS ORDERED: LIDOcaine Viscous 15ml cup MM ONE (20:20)
[2022-06-21] MEDS ORDERED: mag hydrox/Alum hydrox/simeth 30ml oral suspension PO ONE (20:20)
[2022-06-21] MEDS ORDERED: SUCR1TAB34 PO (21:12)
[2022-06-21 21:41] VITALS: BP 138/88
== END 2022-06-21 21:42 | disposition home or self-care (01) ==
LOC: ER 15:47
DX: R10.84 Generalized abdominal pain (principal); R19.7 Diarrhea, unspecified; R63.0 Anorexia; J45.909 Unspecified asthma, uncomplicated; I10 Essential (primary) hypertension; Z88.8 Allergy status to other drugs, medicaments and biological substances; Z79.899 Other long term (current) drug therapy
CPT/HCPCS: 36415; 80053; 83690; 85025; 86885; 86900; 86901; 96374; 99284; J7120

== ENCOUNTER 2022-08-16 05:33 | Inpatient (IN) | payer MEDICAID ==
[2022-08-13 15:57] LABS: BASOPHILS # (AUTO) 0.1 X10'3 (0-0.2); BASOPHILS % (AUTO) 0.9 % (0-1); EOSINOPHILS # (AUTO) 0.1 X10'3 (0-0.9); EOSINOPHILS % (AUTO) 1.5 % (0-6); LYMPHOCYTES # (AUTO) 1.5 X10'3 (1.1-4.8); MEAN CORPUSCULAR HEMOGLOBIN 46.7 PG (27.0-31.0); MEAN CORPUSCULAR HGB CONC 34.9 g/dL (33.0-36.5); MEAN CORPUSCULAR VOLUME 133.6 FL (78-98); MEAN PLATELET VOLUME 7.8 FL (7.4-10.4); MONOCYTES # (AUTO) 0.2 X10'3 (0-0.9); MONOCYTES % (AUTO) 3.1 % (2-12); NEUTROPHILS % (AUTO) 72.5 % (42-75); PRE OP HEMOGLOBIN 11.2 g/dL (12.0-16.0); PRE OP PLATELET COUNT 243 X10'3 (140-440); RED CELL DISTRIBUTION WIDTH 21.4 % (11.5-14.5)
[2022-08-13 16:11] LABS: ALBUMIN 2.9 G/DL (3.4-5.0); ALKALINE PHOSPHATASE 168 IU/L (46-116); BLOOD UREA NITROGEN 9 MG/DL (7-18); BUN/CREATININE RATIO 10.7 (6.6-38.0); CALCIUM 8.4 MG/DL (8.5-10.1); CHLORIDE 106 MMOL/L (99-107); CREATININE 0.84 MG/DL (0.40-0.90); PRE OP ALT 65 U/L (30-65); PRE OP ANION GAP 10 (8-16); PRE OP BILIRUB, TOTAL 0.9 MG/DL (0.0-1.0); PRE OP GLUCOSE 105 MG/DL (70-104); PRE OP POTASSIUM 3.6 MMOL/L (3.4-5.1); PRE OP SODIUM 142 MMOL/L (135-145); TOTAL PROTEIN 5.9 G/DL (6.4-8.2); eGFR 70 ML/MIN
[2022-08-13 16:23] LABS: PRE OP AST 121 U/L (10-37)
[2022-08-16] VITALS (36 sets, daily range): BP systolic 119–157; BP diastolic 55–85
[~2022-08-16] VITALS: Ht 162.6 cm; Wt 73.5 kg
[~2022-08-16 05:33] MED LIST changes: +ALBU18HF2 INH; -DOCU-28 PO; -HYDR-4383 PO; +LISI40TA13 PO; +MALTODEXTRIN/FRUCTOSE 0.68 KCAL/ML LIQUID 296ML BOTTLE PO ONE; -ORPH100T2 PO; +POLY17PO10 PO; +PSYL0.4C2 PO; +ROSU5TAB12 PO; +albuterol 2.5 MG/3 ML nebule NEB ONE; +ceFOXitin 2GM-NS 100mL ADDvant 100 ML IV ONE; +famotidine 20mg tablet PO ONE; +heparin, porcine 5000 units/ml vial SQ ONE; +metroNIDAZOLE-Flagyl 500mg/NS 100ml IVPB IV ONE; +ringers solution, lacted 1,000 ML IV SCH
[2022-08-16] MEDS ORDERED: BUPIVAcaine 0.5% inj/PF 0 ML ONE (06:48)
[2022-08-16] MEDS ORDERED: tobramycin 40mg/ml inj ONE (06:48)
[2022-08-16] MEDS ORDERED: LIDOcaine 1% 30ml preserv. free vial ONE (06:49)
[2022-08-16] MEDS ORDERED: povidone-iodine 10% ointment 1 APPLIC APPLIC TP ONE (06:50)
--- NOTE | 2022-08-16 07:00 | NUR ---
PT NERVOUS FOR SX, GIVEN 2MG VERSED PER ANESTHESIA ORDER, PT DRANK PREOP ENSURE CLEAR 2-4HRS PRIOR TO SX- BS 227-DR DONOVAN AWARE, NO ORDERS GIVEN. PT HAS HAD DIFFICULTY EATING FOR THE LAST FEW MONTHS D/T BOWEL ISSUES-HAS LOST 20+ POUNDS OVER PAST FEW MONTHS
[2022-08-16] MEDS ORDERED: midazolam 1 mg/ML 2ml injection IV ONE (07:25)
[2022-08-16] MEDS ORDERED: ondansetron/PF 4mg/2ml inj IV PRN ×2 (07:25→10:25)
[2022-08-16] MEDS ORDERED: hydrALAZINE 20mg/ml inj. IV PRN (07:25)
[2022-08-16] MEDS ORDERED: ringers solution, lacted 1,000 ML IV SCH (07:25)
[2022-08-16] MEDS ORDERED: proCHLORperazine 10 MG/2 ml inj IV PRN (07:25)
[2022-08-16] MEDS ORDERED: morphine 2 MG/ML inj. syringe IV PRN (07:25)
[2022-08-16] MEDS ORDERED: morphine 4 MG/ML inj SYRINge IV PRN (07:25)
[2022-08-16] MEDS ORDERED: acetaminophen 1,000mg/100ml IV 100 ML IV PRN (07:25)
[2022-08-16] MEDS ORDERED: labetalol 20mg/4ml (5mg/ml) syringe IV PRN (07:25)
[2022-08-16] MEDS ORDERED: HYDROmorphone/PF 0.2 MG/ML SYRINGE IV PRN ×2 (07:25)
[2022-08-16] MEDS ORDERED: fentaNYL /PF 50mcg/ml 5ml ampule ONE ×2 (07:26→09:07)
[2022-08-16] MEDS ORDERED: sevoflurane 250ml liquid IH ONE (07:30)
[2022-08-16] MEDS ORDERED: LIDOcaine 2% (20mg/ml) 5ml vial ONE (08:11)
[2022-08-16] MEDS ORDERED: rocuronium 10mg/ml inj IV ONE (08:11)
[2022-08-16] MEDS ORDERED: dexamethasone sod phosphate 4mg/ml inj. ONE (08:11)
[2022-08-16] MEDS ORDERED: ondansetron/PF 4mg/2ml inj ONE (08:11)
[2022-08-16] MEDS ORDERED: propofol inj 20 ML IV ONE ×2 (08:11→09:30)
[2022-08-16] MEDS ORDERED: bupivacaine 0.25%/epinephrine 1:200,000 inj (contains preserv. MDV) IJ ONE (08:11)
[2022-08-16] MEDS ORDERED: neostigmine methylsulfate 1 MG/ML 10ml vial ONE (09:07)
[2022-08-16] MEDS ORDERED: glycopyrrolate 0.2mg/ml inj ONE (09:08)
--- NOTE | 2022-08-16 09:46 | NUR ---
Received from OR via HOSPITAL BED, accompanied by Anesthesiologist and report given by VENUS Anesthesiologist. PATIENT WAKING UP, MODERATE ABDOMEN PAIN NOTED, V/S WNL, SCD ON , PIV 20G LEFT FOREARM, DERMABONDED LAPS SITES CLOSED C/D/I TO ABDOMEN. F/C DRAINING CLEAR YELLOW URINE. COLOSTOMY BAG NOTED ON LLQ WITH PINK AND MOIST STOMA. Addendum: 08/16/22 at 1010 by Wong Ellis RN Amended: Links added.
[2022-08-16] MEDS: normal saline 1000ml 1,000 ML IV SCH (10:25)
[2022-08-16] MEDS ORDERED: naloxone 0.4 mg/ml inj IV PRN (10:25)
[2022-08-16] MEDS ORDERED: metoclopramide 5 mg/ml inj IV PRN (10:25)
[2022-08-16] MEDS: albuterol 2.5 MG/3 ML nebule NEB SCH ×4 (11:00→19:53)
[2022-08-16] MEDS: morphine/NS PCA 1mg/ml 50ml 50 ML IV SCH ×7 (11:48→23:00)
--- NOTE | 2022-08-16 13:46 | NUR ---
PATIENT HAS MET ALL CRITERIA FOR TRANSFER TO THE SURGICAL FLOOR. VSS. DRESSINGS INTACT. BED LOW, CALL LIGHT PRESENT AND 2 RAILS UP. RN PRESENT TO ACCEPT CARE OF PATIENT AND REPORT HAS BEEN CALLED. ALL QUESTIONS ANSWERED TO ACCEPTING RN. Addendum: 08/16/22 at 1358 by Wong Ellis RN Amended: Links added.
--- NOTE | 2022-08-16 14:31 | NUR ---
Received report from Wong ARELLANO in PACU, Patient arrived on floor at 1415 settled in room and Oriented to room and call light.
[2022-08-16] MEDS: potassium CL 20mEq in D5-1/2NS 1,000 ML IV SCH ×2 (15:46→20:58)
[2022-08-16] MEDS: nicotine 21mg patch - 24 hr TD SCH (16:51)
[2022-08-16] MEDS: ceFOXitin inj 1,000 MG in normal saline 100ml IV soln 100 ML IV SCH (16:51)
--- NOTE | 2022-08-16 18:42 | NUR ---
Patient in room [facility] 347. I have received report from MARCELO ARELLANO and had the opportunity to ask questions and assume patient care.
[2022-08-16] MEDS: docusate sod 100mg capsule PO SCH (20:00)
[2022-08-16] MEDS: heparin, porcine 5000 units/ml vial SQ SCH (20:54)
--- NOTE | 2022-08-17 00:30 | NUR ---
PATIENT NOT ABLE TO WALKED VERY NAUSEOUS AND HAS BEEN VOMITING EARLIER. ZOFRAN AND REGLAN HAS BEEN GIVEN.
[2022-08-17] MEDS: ceFOXitin inj 1,000 MG in normal saline 100ml IV soln 100 ML IV SCH (00:38)
[2022-08-17] MEDS: morphine/NS PCA 1mg/ml 50ml 50 ML IV SCH ×8 (01:00→15:00)
[2022-08-17] MEDS: albuterol 2.5 MG/3 ML nebule NEB SCH ×5 (02:18→19:56)
[2022-08-17 06:00] VITALS: BP 134/80
--- NOTE | 2022-08-17 06:30 | NUR ---
Problems reprioritized. Patient report given, questions answered & plan of care reviewed with DADA ARELLANO.
[2022-08-17 06:41] LABS: BASOPHILS % (AUTO) 0.3 % (0-1); EOSINOPHILS % (AUTO) 0.4 % (0-6); HEMATOCRIT 24.9 % (35.0-45.0); HEMOGLOBIN 8.5 g/dl (12.0-16.0); LYMPHOCYTES # (AUTO) 1.7 X10'3 (1.1-4.8); LYMPHOCYTES % (AUTO) 31.5 % (21-51); MEAN CORPUSCULAR HEMOGLOBIN 45.8 PG (27.0-31.0); MEAN CORPUSCULAR HGB CONC 34.1 g/dL (33.0-36.5); MEAN CORPUSCULAR VOLUME 134.3 FL (78-98); MEAN PLATELET VOLUME 7.8 FL (7.4-10.4); MONOCYTES # (AUTO) 0.2 X10'3 (0-0.9); MONOCYTES % (AUTO) 4.2 % (2-12); NEUTROPHILS # (AUTO) 3.5 X10'3 (1.8-7.7); NEUTROPHILS % (AUTO) 63.6 % (42-75); PLATELET COUNT 177 X10'3 (140-440); RED BLOOD COUNT 1.85 X10'6 (4.20-5.60); RED CELL DISTRIBUTION WIDTH 21.6 % (11.5-14.5); WHITE BLOOD COUNT 5.5 X10'3 (4.5-11.0)
[2022-08-17 06:52] LABS: ALBUMIN 2.2 G/DL (3.4-5.0); ANION GAP 8 (8-16); BLOOD UREA NITROGEN 5 MG/DL (7-18); BUN/CREATININE RATIO 6.8 (6.6-38.0); CALCIUM 7.6 MG/DL (8.5-10.1); CHLORIDE 107 MMOL/L (99-107); CREATININE 0.73 MG/DL (0.40-0.90); GLUCOSE 102 MG/DL (70-104); POTASSIUM 3.4 MMOL/L (3.5-5.1); SODIUM 139 MMOL/L (135-145); TOTAL CARBON DIOXIDE 23.7 MMOL/L (24-32); eGFR 83 ML/MIN
[2022-08-17 08:02] LABS: PLATELET ESTIMATE NORMAL
[2022-08-17 08:03] LABS: ANISOCYTOSIS 3+; POLYCHROMASIA FEW
[2022-08-17] MEDS: docusate sod 100mg capsule PO SCH ×2 (08:45→19:55)
[2022-08-17] MEDS: nicotine 21mg patch - 24 hr TD SCH (08:45)
[2022-08-17] MEDS: atorvastatin 20mg tablet PO SCH (08:45)
[2022-08-17] MEDS: heparin, porcine 5000 units/ml vial SQ SCH ×2 (08:46→19:48)
[2022-08-17 10:00] VITALS: BP 145/61
[2022-08-17] MEDS: potassium CL 20mEq in D5-1/2NS 1,000 ML IV SCH (12:42)
--- NOTE | 2022-08-17 13:03 | NUR ---
[facility] consult for new ostomy teaching. This is a 57 year old female with a history of anal rectal stenosis, bowel obstruction symptoms and previous diverticulitis who was admitted for a laparoscopic diverting loop descending colon colostomy, takedown splenic flexure and complex lysis of adhesions and takedown of colonic fistula by Dr. Jus Beckett. Patient presents POD x2 for colostomy teaching. ID by name and /Medical ID. She agrees to teaching. Stoma measures 35mm, red moist and protruding. There was bridging noted to the stoma site. The os is located to the superior aspect of the stoma. Serosanguinous drainage noted in the ostomy bag, no stool. Patient is advancing her diet, currently on thin liquids. Her belly is distended and firm. She is tender to palpation still. Education was provided with 1:1 teaching, demonstration and handouts. The colostomy bag was changed with her watching. She tolerated well. The patient was left in a position of comfort, call light in reach, bed locked and in low position. Report off to primary nurse.
--- NOTE | 2022-08-17 15:13 | NUR ---
Malnutrition Consult: Pt admit DX analrectal stenosis w/ bowel obstruction symptoms s/p OR for colostomy, takedown splenic flexure, complex lysis of adhesions, and takedown of colonic fistula EMR. Pt 0% first clear liquids meal last night pending PO documentation today though advanced to full liquids WS per EMR. Pt seen by RD at bedside; pt reports N/V yesterday w/ brief nausea today however mostly no GI symptoms today. Pt reports UBW ~200 pounds last October however given frequent diarrhea, constipation, N/V, or abdominal distention following PO only able to tolerate liquids mostly V8 and "yogurt drinks" now down to ~160 pounds. Current standing scaled wt 162 pounds this admit. Given ~19% UBW loss past 10 months severe loss w/ predicted suboptimal intake meets minimum severe malnutrition criteria; MD notified. Noted pt MCV 134.3 per EMR; pt reports no etoh hx during RD visit RD d/w RN regarding routine B12/MVI supplementation if MD agreeable. RD provided pt w/ written/verbal colostomy diet ed w/ RD contact information and reviewed ONS options to assist nutrition repletion. Pt reports has tried Boosts prior did not like; is open to Ensures but waiting to decide until surgeon f/u visit today. Pending colostomy output w/ pt reporting waiting to pass large gas bubble at this time. Will monitor for PO diet advancement/tolerance and further nutrition intervention needs this admit. Rec: 1. advance diet as medically indicated to low-residue 2. If pt agreeable to ONS; Ensure Plus High Protein TIDWM 3. consider routine B12/MVI supplementation if MD agreeable given MCV 134.3 4. routine bowel care per MD 5. weekly wts Addendum: 08/17/22 at [address] Amended: Links added.
[2022-08-17] MEDS ORDERED: PCA WASTE DOCUMENTATION MC SCH (17:45)
--- NOTE | 2022-08-17 18:34 | NUR ---
Dr tsai into see patient. PICC line ordered in am. dr tsai stated he wants the PICC line placed in am. Any concerns to call his cell phone. PANEL FITTER Dc'd IV infiltrated to left forearm. patient ambulated 300ft. Is in use. Report given to Dafne ARELLANO
[2022-08-17] MEDS: mag hydrox/Alum hydrox/simeth 30ml oral suspension PO PRN (19:50)
[2022-08-17] MEDS: morphine 2 MG/ML inj. syringe IV PRN ×2 (19:52→21:54)
[2022-08-17 22:00] VITALS: BP 132/61
[2022-08-18] MEDS: mag hydrox/Alum hydrox/simeth 30ml oral suspension PO PRN ×3 (02:41→17:49)
[2022-08-18] MEDS: morphine 2 MG/ML inj. syringe IV PRN ×5 (02:42→19:15)
[2022-08-18 06:08] LABS: BASOPHILS % (AUTO) 0.5 % (0-1); EOSINOPHILS # (AUTO) 0.1 X10'3 (0-0.9); EOSINOPHILS % (AUTO) 1.3 % (0-6); HEMATOCRIT 24.3 % (35.0-45.0); HEMOGLOBIN 8.4 g/dl (12.0-16.0); LYMPHOCYTES # (AUTO) 1.4 X10'3 (1.1-4.8); LYMPHOCYTES % (AUTO) 34.8 % (21-51); MEAN CORPUSCULAR HEMOGLOBIN 46.7 PG (27.0-31.0); MEAN CORPUSCULAR HGB CONC 34.7 g/dL (33.0-36.5); MEAN CORPUSCULAR VOLUME 134.4 FL (78-98); MEAN PLATELET VOLUME 7.4 FL (7.4-10.4); MONOCYTES # (AUTO) 0.2 X10'3 (0-0.9); MONOCYTES % (AUTO) 4.2 % (2-12); NEUTROPHILS # (AUTO) 2.4 X10'3 (1.8-7.7); NEUTROPHILS % (AUTO) 59.2 % (42-75); PLATELET COUNT 146 X10'3 (140-440); RED CELL DISTRIBUTION WIDTH 21.3 % (11.5-14.5)
--- NOTE | 2022-08-18 06:17 | NUR ---
Problems reprioritized. Patient report given, questions answered & plan of care reviewed with DADA ARELLANO.
--- NOTE | 2022-08-18 06:25 | NUR ---
Patient in room [facility] 347. I have received report from Dafne ARELLANO and had the opportunity to ask questions and assume patient care.
[2022-08-18 06:27] LABS: ALBUMIN 2.2 G/DL (3.4-5.0); ANION GAP 7 (8-16); BLOOD UREA NITROGEN 2 MG/DL (7-18); BUN/CREATININE RATIO 3.2 (6.6-38.0); CALCIUM 7.8 MG/DL (8.5-10.1); CHLORIDE 108 MMOL/L (99-107); CREATININE 0.62 MG/DL (0.40-0.90); GLUCOSE 95 MG/DL (70-104); POTASSIUM 3.7 MMOL/L (3.5-5.1); SODIUM 141 MMOL/L (135-145); TOTAL CARBON DIOXIDE 25.7 MMOL/L (24-32); eGFR > 90 ML/MIN
[2022-08-18 07:00] VITALS: BP 118/69
[2022-08-18] MEDS: atorvastatin 20mg tablet PO SCH (07:03)
[2022-08-18] MEDS: docusate sod 100mg capsule PO SCH ×2 (07:03→21:26)
[2022-08-18] MEDS: heparin, porcine 5000 units/ml vial SQ SCH ×2 (07:04→21:26)
[2022-08-18] MEDS: nicotine 21mg patch - 24 hr TD SCH (07:05)
[2022-08-18 07:18] LABS: ANISOCYTOSIS 3+; PLATELET ESTIMATE NORMAL
[2022-08-18 07:19] LABS: POLYCHROMASIA FEW; STOMATOCYTES 1+
[2022-08-18] MEDS: albuterol 2.5 MG/3 ML nebule NEB SCH ×4 (07:24→19:46)
[2022-08-18 10:00] VITALS: BP 101/62
[2022-08-18] MEDS: normal saline 1000ml 1,000 ML IV SCH (10:25)
--- NOTE | 2022-08-18 17:40 | NUR ---
patient IV infusing well, spoke with Dr Beckett, PICC on hold right now, colostomy moved 150mls brown liquid stool measured , positive for gas. Ambulated 900ft x2. Morphine given x3 for abdominal pain with good result. right lower Dermabond lap site leaking small amount. Optifoam placed. maalox x2 for indigestion with good relief. will continue to monitor
[2022-08-18 18:00] VITALS: BP 137/74
--- NOTE | 2022-08-18 18:52 | NUR ---
Problems reprioritized. Patient report given, questions answered & plan of care reviewed with Dafne ARELLANO.
--- NOTE | 2022-08-18 18:55 | NUR ---
Patient in room [facility] 347. I have received report from DADA ARELLANO and had the opportunity to ask questions and assume patient care.
[2022-08-18 22:00] VITALS: BP 128/64
[2022-08-19] MEDS: morphine 2 MG/ML inj. syringe IV PRN (00:37)
[2022-08-19] MEDS: HYDROcodone/acetaminophen 5mg/325mg tablet PO PRN ×3 (03:20→12:00)
[2022-08-19] MEDS: mag hydrox/Alum hydrox/simeth 30ml oral suspension PO PRN (03:21)
[2022-08-19] MEDS: potassium CL 20mEq in D5-1/2NS 1,000 ML IV SCH (05:57)
[2022-08-19 06:00] VITALS: BP 125/65
[2022-08-19 06:29] LABS: ALBUMIN 2.2 G/DL (3.4-5.0); ANION GAP 10 (8-16); BLOOD UREA NITROGEN 4 MG/DL (7-18); BUN/CREATININE RATIO 5.8 (6.6-38.0); CALCIUM 7.7 MG/DL (8.5-10.1); CHLORIDE 108 MMOL/L (99-107); CREATININE 0.69 MG/DL (0.40-0.90); GLUCOSE 116 MG/DL (70-104); POTASSIUM 3.6 MMOL/L (3.5-5.1); SODIUM 141 MMOL/L (135-145); TOTAL CARBON DIOXIDE 22.7 MMOL/L (24-32); eGFR 88 ML/MIN
--- NOTE | 2022-08-19 06:47 | NUR ---
Problems reprioritized. Patient report given, questions answered & plan of care reviewed with MERLIN VELIZ.
--- NOTE | 2022-08-19 06:56 | NUR ---
Patient in room [facility] 347. I have received report from Lanie Dela Cruz RN and had the opportunity to ask questions and assume patient care.
[2022-08-19] MEDS: albuterol 2.5 MG/3 ML nebule NEB SCH ×2 (07:33→11:46)
[2022-08-19 07:37] LABS: BASOPHILS % (AUTO) 0.5 % (0-1); EOSINOPHILS # (AUTO) 0.1 X10'3 (0-0.9); EOSINOPHILS % (AUTO) 2.1 % (0-6); HEMATOCRIT 26.7 % (35.0-45.0); LYMPHOCYTES # (AUTO) 1.2 X10'3 (1.1-4.8); LYMPHOCYTES % (AUTO) 31.3 % (21-51); MEAN CORPUSCULAR HEMOGLOBIN 45.4 PG (27.0-31.0); MEAN CORPUSCULAR HGB CONC 33.6 g/dL (33.0-36.5); MEAN CORPUSCULAR VOLUME 135.3 FL (78-98); MEAN PLATELET VOLUME 7.7 FL (7.4-10.4); MONOCYTES # (AUTO) 0.2 X10'3 (0-0.9); MONOCYTES % (AUTO) 5.7 % (2-12); NEUTROPHILS # (AUTO) 2.3 X10'3 (1.8-7.7); NEUTROPHILS % (AUTO) 60.4 % (42-75); PLATELET COUNT 166 X10'3 (140-440); RED BLOOD COUNT 1.97 X10'6 (4.20-5.60); RED CELL DISTRIBUTION WIDTH 21.7 % (11.5-14.5); WHITE BLOOD COUNT 3.8 X10'3 (4.5-11.0)
[2022-08-19 07:45] LABS: ANISOCYTOSIS 3+; PLATELET ESTIMATE NORMAL
[2022-08-19] MEDS: nicotine 21mg patch - 24 hr TD SCH (08:14)
[2022-08-19] MEDS: docusate sod 100mg capsule PO SCH (08:14)
[2022-08-19] MEDS: atorvastatin 20mg tablet PO SCH (08:14)
[2022-08-19] MEDS: heparin, porcine 5000 units/ml vial SQ SCH (08:15)
[2022-08-19 10:00] VITALS: BP 143/68
--- NOTE | 2022-08-19 11:06 | NUR ---
[facility] assessment: This is a 57 year old female with a history of anal rectal stenosis, bowel obstruction symptoms and previous diverticulitis who was admitted for a laparoscopic diverting loop descending colon colostomy, takedown splenic flexure and complex lysis of adhesions and takedown of colonic fistula by Dr. Jus Beckett. She agrees to teaching. Stoma measures 35mm, red moist and protruding. The os is located to the superior aspect of the stoma. Blanco in place. There is a well approximating incision noted adjacent to the stoma site. No ssx infection noted, appears to be healing well and is open to air. Brown liquid stool noted to the bag today. Appears to be functioning properly. Abdomen less distended today. Education was provided, she changed the appliance herself with some assistance. She will require home health for further education and instruction. CM is aware. The patient was left in a position of comfort, call light in reach, bed locked and in low position. Report off to primary nurse.
--- NOTE | 2022-08-19 14:00 | NUR ---
Patient was discharge with all belongings and assisted to personal vehicle.
--- NOTE | 2022-08-19 14:00 | NUR ---
Patient is stable, appropriate for discharge. Patient was discharge home with spouse, discharge information was provided and reviewed with patient whom verbalize understanding.
== END 2022-08-19 14:15 | disposition home health service (06) | DRG 231 ==
LOC: PAS IN 05:33 → SUR 3N 13:57
PROVIDERS: ADMIT Colon & Rectal Surgery; ATTEND Colon & Rectal Surgery
PROC: 0DSL4ZZ Reposition Transverse Colon, Percutaneous Endoscopic Approach (ICD-10-PCS; 2022-08-16)
PROC: 0D1M4Z4 Bypass Descending Colon to Cutaneous, Percutaneous Endoscopic Approach (ICD-10-PCS; principal; 2022-08-16 07:30)
DX: K62.4 Stenosis of anus and rectum (principal); E43 Unspecified severe protein-calorie malnutrition; K56.609 Unspecified intestinal obstruction, unspecified as to partial versus complete obstruction; K63.2 Fistula of intestine; K59.09 Other constipation; J44.9 Chronic obstructive pulmonary disease, unspecified; I10 Essential (primary) hypertension; E88.09 Other disorders of plasma-protein metabolism, not elsewhere classified; D64.9 Anemia, unspecified; Z68.27 Body mass index [BMI] 27.0-27.9, adult
CPT/HCPCS: 36415; 80048; 80053; 82948; 85008; 85025; 86885; 86900; 86901; 87081; 93005; 94640; 94760; A4421; A4615; A4618; A4649; A6212; A6258; A6449; A7000; C1758; G0378; J0131; J0694; J1100; J1170; J1644; J2250; J2270; J2405; J2704; J2710; J2765; J3010; J3260; J3480; J3490; J7030; J7120; S0020

== ENCOUNTER 2022-09-11 06:20 | Emergency (ER) | payer MEDICAID ==
[~2022-09-11 06:20] MED LIST changes: -MALTODEXTRIN/FRUCTOSE 0.68 KCAL/ML LIQUID 296ML BOTTLE PO ONE; -albuterol 2.5 MG/3 ML nebule NEB ONE; -ceFOXitin 2GM-NS 100mL ADDvant 100 ML IV ONE; -famotidine 20mg tablet PO ONE; -heparin, porcine 5000 units/ml vial SQ ONE; -metroNIDAZOLE-Flagyl 500mg/NS 100ml IVPB IV ONE; -ringers solution, lacted 1,000 ML IV SCH
== END 2022-09-11 06:59 | disposition left against medical advice (07) ==
LOC: ER 06:20
DX: Z00.8 Encounter for other general examination (principal); Z53.21 Procedure and treatment not carried out due to patient leaving prior to being seen by health care provider

== ENCOUNTER 2023-02-17 12:33 | Inpatient (IN) | payer MEDICAID ==
[~2023-02-17] VITALS: Ht 162.6 cm; Wt 62.3 kg
[2023-02-17 18:55] LABS: BASOPHILS # (AUTO) 0.1 X10'3 (0-0.2); BASOPHILS % (AUTO) 0.8 % (0-1); EOSINOPHILS # (AUTO) 0.3 X10'3 (0-0.9); EOSINOPHILS % (AUTO) 2.9 % (0-6); HEMATOCRIT 34.5 % (35.0-45.0); HEMOGLOBIN 11.7 g/dl (12.0-16.0); LYMPHOCYTES # (AUTO) 2.7 X10'3 (1.1-4.8); LYMPHOCYTES % (AUTO) 28.2 % (21-51); MEAN CORPUSCULAR HEMOGLOBIN 40.7 PG (27.0-31.0); MEAN CORPUSCULAR HGB CONC 33.9 g/dL (33.0-36.5); MEAN CORPUSCULAR VOLUME 120.2 FL (78-98); MEAN PLATELET VOLUME 7.4 FL (7.4-10.4); MONOCYTES # (AUTO) 0.4 X10'3 (0-0.9); MONOCYTES % (AUTO) 4.5 % (2-12); NEUTROPHILS % (AUTO) 63.6 % (42-75); PLATELET COUNT 260 X10'3 (140-440); RED BLOOD COUNT 2.87 X10'6 (4.20-5.60); RED CELL DISTRIBUTION WIDTH 25.9 % (11.5-14.5); WHITE BLOOD COUNT 9.5 X10'3 (4.5-11.0)
[2023-02-17 19:10] LABS: ALANINE AMINOTRANSFERASE 33 U/L (12-78); ALBUMIN/GLOBULIN RATIO 0.9 (1.1-1.5); ALKALINE PHOSPHATASE 193 IU/L (46-116); ANION GAP 12 (8-16); ASPARTATE AMINO TRANSFERASE 77 U/L (10-37); BILIRUBIN,TOTAL 0.6 MG/DL (0.1-1.0); BLOOD UREA NITROGEN 8 MG/DL (7-18); BUN/CREATININE RATIO 8.4 (10.0-20.0); CALCIUM 8.4 MG/DL (8.5-10.1); CHLORIDE 106 MMOL/L (99-107); CREATININE 0.95 MG/DL (0.40-0.90); GLUCOSE 102 MG/DL (70-104); SODIUM 145 MMOL/L (135-145); TOTAL CARBON DIOXIDE 26.6 MMOL/L (24-32); TOTAL PROTEIN 6.3 G/DL (6.4-8.2); eGFR 61 ML/MIN
[2023-02-17 19:18] LABS: POTASSIUM 2.7 MMOL/L (3.5-5.1)
[2023-02-17] MEDS ORDERED: potassium Cl 20 mEq SR tablet PO STA (19:21)
[2023-02-17] MEDS ORDERED: iohexol 350MG/ML 100ml bottle IV ONE (19:24)
[2023-02-17] MEDS ORDERED: heparin 10,000 units/1 ML INJ IV ONE (20:10)
[2023-02-17 20:13] LABS: ANISOCYTOSIS 3+; PLATELET ESTIMATE NORMAL
[2023-02-17 20:14] LABS: POLYCHROMASIA FEW; TARGET CELLS FEW; TEAR DROP CELLS FEW
[2023-02-17] MEDS: heparin 25,000 UNIT/250ml bag 250 ML IV PRN (21:16)
[2023-02-17] MEDS ORDERED: magnesium 2GM in 50ml NS 50 ML IV PRN (22:05)
[2023-02-17] MEDS ORDERED: morphine 2 MG/ML inj. syringe IV PRN (22:05)
[2023-02-17] MEDS ORDERED: diphenhydrAMINE 25mg capsule PO PRN (22:05)
[2023-02-17] MEDS ORDERED: acetaminophen 325mg tablet PO PRN ×2 (22:05)
[2023-02-17] MEDS ORDERED: acetaminophen 650mg rectal suppository RC PRN (22:05)
[2023-02-17] MEDS ORDERED: bisacodyl 10mg suppository rectal RC PRN (22:05)
[2023-02-17] MEDS ORDERED: potassium Cl 20 mEq SR tablet PO PRN (22:05)
[2023-02-17] MEDS ORDERED: magnesium 4gm in 100ml NS 100 ML IV PRN (22:05)
[2023-02-17] MEDS ORDERED: potassium Cl 40MEQ/1/2NS 520ml 520 ML IV PRN (22:05)
[2023-02-17] MEDS ORDERED: magnesium hydroxide 30ml (MOM) UD suspension PO PRN (22:05)
[2023-02-17] MEDS ORDERED: ondansetron 4mg rapidly disintigrating tab PO PRN (22:05)
[2023-02-17] MEDS ORDERED: diphenhydrAMINE 50 mg/ml inj IV PRN (22:05)
[2023-02-17] MEDS ORDERED: magnesium Cl slow-release 64mg tablet PO PRN (22:05)
[2023-02-17] MEDS ORDERED: nicotine 21mg patch - 24 hr TD ONE (22:10)
[2023-02-17 22:32] LABS: HEMOGLOBIN A1C 5.5 % (4.5-6.2)
[2023-02-17] MEDS: potassium Cl 20mEq in NS 1,000 ML IV SCH (22:37)
[2023-02-17] MEDS: HYDROcodone/acetaminophen 5mg/325mg tablet PO PRN (22:37)
[2023-02-17] MEDS: temazepam 15mg capsule PO PRN (22:38)
[2023-02-17 22:42] LABS: CREATINE KINASE 16 U/L (26-192); LIPASE < 50 U/L (73-393); MAGNESIUM 1.8 MG/DL (1.5-2.4); PHOSPHORUS 3.7 MG/DL (2.3-4.5)
[2023-02-18 05:31] LABS: EOSINOPHILS # (AUTO) 0.3 X10'3 (0-0.9); HEMATOCRIT 28.2 % (35.0-45.0); NEUTROPHILS # (AUTO) 2.8 X10'3 (1.8-7.7); RED CELL DISTRIBUTION WIDTH 25.8 % (11.5-14.5); WHITE BLOOD COUNT 5.9 X10'3 (4.5-11.0)
[2023-02-18 05:32] LABS: BASOPHILS % (AUTO) 0.6 % (0-1); EOSINOPHILS % (AUTO) 4.3 % (0-6); HEMOGLOBIN 9.7 g/dl (12.0-16.0); LYMPHOCYTES # (AUTO) 2.6 X10'3 (1.1-4.8); LYMPHOCYTES % (AUTO) 43.8 % (21-51); MEAN CORPUSCULAR HEMOGLOBIN 41.5 PG (27.0-31.0); MEAN CORPUSCULAR HGB CONC 34.4 g/dL (33.0-36.5); MEAN CORPUSCULAR VOLUME 120.6 FL (78-98); MEAN PLATELET VOLUME 7.4 FL (7.4-10.4); MONOCYTES # (AUTO) 0.3 X10'3 (0-0.9); MONOCYTES % (AUTO) 4.6 % (2-12); NEUTROPHILS % (AUTO) 46.7 % (42-75); PLATELET COUNT 175 X10'3 (140-440); RED BLOOD COUNT 2.34 X10'6 (4.20-5.60)
[2023-02-18 05:44] LABS: ALANINE AMINOTRANSFERASE 22 U/L (12-78); ALBUMIN 2.2 G/DL (3.4-5.0); ALBUMIN/GLOBULIN RATIO 0.8 (1.1-1.5); ALKALINE PHOSPHATASE 157 IU/L (46-116); ANION GAP 7 (8-16); ASPARTATE AMINO TRANSFERASE 44 U/L (10-37); BILIRUBIN,TOTAL 0.5 MG/DL (0.1-1.0); BLOOD UREA NITROGEN 7 MG/DL (7-18); BUN/CREATININE RATIO 9.3 (10.0-20.0); CALCIUM 7.9 MG/DL (8.5-10.1); CHLORIDE 108 MMOL/L (99-107); CHOL/HDL RATIO 3.4 (0.00-4.99); CHOLESTEROL 147 MG/DL (0-200); CREATININE 0.75 MG/DL (0.40-0.90); GLUCOSE 91 MG/DL (70-104); HDL CHOLESTEROL 43 MG/DL (35-60); LDL CHOLESTEROL 75 MG/DL (50-100); MAGNESIUM 1.7 MG/DL (1.5-2.4); SODIUM 143 MMOL/L (135-145); TOTAL CARBON DIOXIDE 27.9 MMOL/L (24-32); TOTAL PROTEIN 4.9 G/DL (6.4-8.2); TRIGLYCERIDES 142 MG/DL (20-135); eGFR 80 ML/MIN
[2023-02-18 05:55] LABS: POTASSIUM 2.9 MMOL/L (3.5-5.1)
[2023-02-18 06:08] LABS: D-DIMER 2.76 MG/L FEU (0-0.50)
--- NOTE | 2023-02-18 07:25 | NUR ---
RN ENTERED NEXT PTT FOR 1110 PER PROTOCOL. FLOOR RN BRIE NOTIFIED AND WILL CONT TO MONITOR.
[2023-02-18] MEDS: pantoprazole 40mg Tablet.DR PO SCH (07:30)
[2023-02-18] MEDS: docusate sod 100mg capsule PO SCH ×2 (08:00→20:00)
[2023-02-18] MEDS ORDERED: CefTRIAXone/D5W-Rocephin 1gm 50 ML IV SCH (08:00)
[2023-02-18] MEDS: K and/or MAG REPLACEMENT MC SCH ×2 (08:00→20:00)
[2023-02-18] MEDS: potassium Cl 20mEq in NS 1,000 ML IV SCH ×2 (08:05→18:34)
[2023-02-18] MEDS: morphine 2 MG/ML inj. syringe IV PRN ×3 (09:35→20:32)
[2023-02-18 11:49] LABS: APTT 44 SECONDS (22-32)
[2023-02-18] MEDS: potassium Cl 20 mEq SR tablet PO PRN ×2 (12:07→17:48)
[2023-02-18] MEDS: heparin 10,000 units/1 ML INJ IV PRN (13:55)
[2023-02-18 17:14] VITALS: BP 119/64; PULSE 86; RESP 15; TEMP 97.8; O2SAT 98
[2023-02-18 18:00] VITALS: BP 126/57; PULSE 82; RESP 20; TEMP 98.1; O2SAT 99
[2023-02-18] MEDS: ondansetron/PF 4mg/2ml inj IV PRN (18:34)
[2023-02-18 20:00] VITALS: RESP 12; O2SAT 97
[2023-02-18] MEDS ORDERED: ipratropium/albuterol 3ml nebule NEB PRN (20:45)
[2023-02-18 21:15] VITALS: PULSE 74; RESP 14; O2SAT 98
[2023-02-18 21:24] VITALS: PULSE 84; RESP 16
[2023-02-18] MEDS: heparin 25,000 UNIT/250ml bag 250 ML IV PRN (21:36)
[2023-02-18 22:00] VITALS: BP 117/48; PULSE 92; RESP 12; TEMP 97.5; O2SAT 93
[2023-02-18 23:19] LABS: CLARITY,URINE SLIGHTLY CLOUDY (Clear); COLOR,URINE YELLOW (Yellow); GLUCOSE, URINE NEGATIVE (Neg); KETONES,URINE NEGATIVE (Neg); LEUKOCYTE ESTERASE ,URINE NEGATIVE (Neg); NITRITES, URINE POSITIVE (Neg); OCCULT BLOOD,URINE NEGATIVE (Neg); PROTEIN,URINE NEGATIVE (Neg); UROBILINOGEN,URINE 0.2 E.U/dL (0.2-1.0)
[2023-02-18 23:26] LABS: UA COLLECTION TYPE OTHER
[2023-02-18 23:30] LABS: BACTERIA,URINE 4+ /HPF (Neg); RBC,URINE 0-2 /HPF (0-2); SQUAMOUS EPITHELIAL CELL,UR MODERATE /LPF (FEW)
[2023-02-18 23:57] LABS: URINE AMPHETAMINE SCREEN NEGATIVE (Neg); URINE BARBITUATE SCREEN NEGATIVE (Neg); URINE BENZODIAZEPINES SCREEN NEGATIVE (Neg); URINE CANNABINOID SCREEN POSITIVE (Neg); URINE COCAINE SCREEN NEGATIVE (Neg); URINE METHADONE SCREEN NEGATIVE (Neg); URINE OPIATE SCREEN POSITIVE (Neg); URINE PHENCYCLIDINE SCREEN NEGATIVE (Neg)
[2023-02-19] VITALS (10 sets, daily range): BP systolic 90–125; BP diastolic 44–61; PULSE 70–89; RESP 10–18; TEMP 97.5–98.6; O2SAT 94–99
[2023-02-19] MEDS: morphine 2 MG/ML inj. syringe IV PRN ×3 (00:36→21:27)
[2023-02-19] MEDS: potassium Cl 20 mEq SR tablet PO PRN (01:25)
[2023-02-19 02:05] LABS: APTT 28 SECONDS (22-32)
[2023-02-19] MEDS: heparin 10,000 units/1 ML INJ IV PRN (02:34)
[2023-02-19] MEDS: mag hydrox/Alum hydrox/simeth 30ml oral suspension PO PRN (02:43)
[2023-02-19] MEDS: K and/or MAG REPLACEMENT MC SCH ×2 (08:00→20:00)
[2023-02-19] MEDS: docusate sod 100mg capsule PO SCH ×2 (08:00→19:44)
[2023-02-19] MEDS: lisinopril 20mg tablet PO SCH (08:26)
[2023-02-19] MEDS: ROSUVASTATIN CALCIUM 5 MG TABLET PO SCH (08:26)
[2023-02-19] MEDS: pantoprazole 40mg Tablet.DR PO SCH (08:29)
[2023-02-19 10:35] LABS: PLATELET COUNT 173 X10'3 (140-440)
[2023-02-19 10:37] LABS: BASOPHILS # (AUTO) 0.1 X10'3 (0-0.2); BASOPHILS % (AUTO) 1.1 % (0-1); EOSINOPHILS # (AUTO) 0.2 X10'3 (0-0.9); EOSINOPHILS % (AUTO) 4.3 % (0-6); HEMOGLOBIN 9.8 g/dl (12.0-16.0); LYMPHOCYTES # (AUTO) 1.4 X10'3 (1.1-4.8); LYMPHOCYTES % (AUTO) 29.9 % (21-51); MEAN CORPUSCULAR HEMOGLOBIN 41.2 PG (27.0-31.0); MEAN CORPUSCULAR HGB CONC 33.8 g/dL (33.0-36.5); MEAN CORPUSCULAR VOLUME 121.8 FL (78-98); MEAN PLATELET VOLUME 8.5 FL (7.4-10.4); MONOCYTES # (AUTO) 0.2 X10'3 (0-0.9); NEUTROPHILS # (AUTO) 2.9 X10'3 (1.8-7.7); NEUTROPHILS % (AUTO) 59.7 % (42-75); RED BLOOD COUNT 2.38 X10'6 (4.20-5.60); RED CELL DISTRIBUTION WIDTH 25.6 % (11.5-14.5); WHITE BLOOD COUNT 4.8 X10'3 (4.5-11.0)
[2023-02-19 10:39] LABS: APTT 57 SECONDS (22-32)
[2023-02-19 10:47] LABS: ALANINE AMINOTRANSFERASE 19 U/L (12-78); ALBUMIN 2.2 G/DL (3.4-5.0); ALBUMIN/GLOBULIN RATIO 0.8 (1.1-1.5); ALKALINE PHOSPHATASE 140 IU/L (46-116); ANION GAP 9 (8-16); ASPARTATE AMINO TRANSFERASE 45 U/L (10-37); BILIRUBIN,TOTAL 0.3 MG/DL (0.1-1.0); BLOOD UREA NITROGEN 3 MG/DL (7-18); BUN/CREATININE RATIO 3.9 (10.0-20.0); CALCIUM 8.1 MG/DL (8.5-10.1); CHLORIDE 108 MMOL/L (99-107); CREATININE 0.76 MG/DL (0.40-0.90); GLUCOSE 138 MG/DL (70-104); MAGNESIUM 1.8 MG/DL (1.5-2.4); POTASSIUM 4.8 MMOL/L (3.5-5.1); SODIUM 141 MMOL/L (135-145); TOTAL CARBON DIOXIDE 24.3 MMOL/L (24-32); eGFR 79 ML/MIN
[2023-02-19 13:18] LABS: PLATELET ESTIMATE NORMAL
[2023-02-19 13:19] LABS: ANISOCYTOSIS 3+; POLYCHROMASIA 1+; TEAR DROP CELLS 1+
[2023-02-19] MEDS: ondansetron/PF 4mg/2ml inj IV PRN ×2 (14:54→21:23)
--- NOTE | 2023-02-19 19:20 | NUR ---
Patient in room PCU 3020. I have received report from EILEEN Covington and had the opportunity to ask questions and assume patient care.
[2023-02-19] MEDS: heparin 25,000 UNIT/250ml bag 250 ML IV PRN (19:39)
[2023-02-19] MEDS ORDERED: docusate sod 100mg capsule PO PRN (19:50)
[2023-02-19] MEDS: nicotine 21mg patch - 24 hr TD SCH (20:00)
[2023-02-20] MEDS: temazepam 15mg capsule PO PRN (00:21)
[2023-02-20] MEDS: HYDROcodone/acetaminophen 5mg/325mg tablet PO PRN (00:22)
[2023-02-20 02:00] VITALS: BP 94/53; PULSE 74; RESP 18; TEMP 97.3; O2SAT 96
[2023-02-20] MEDS: ondansetron/PF 4mg/2ml inj IV PRN (05:35)
[2023-02-20] MEDS: morphine 2 MG/ML inj. syringe IV PRN (05:37)
[2023-02-20 06:00] VITALS: BP 103/59; PULSE 79; RESP 18; TEMP 97.3; O2SAT 98
[2023-02-20 06:24] LABS: BASOPHILS % (AUTO) 0.7 % (0-1); EOSINOPHILS # (AUTO) 0.2 X10'3 (0-0.9); EOSINOPHILS % (AUTO) 3.7 % (0-6); HEMATOCRIT 28.7 % (35.0-45.0); HEMOGLOBIN 9.7 g/dl (12.0-16.0); LYMPHOCYTES # (AUTO) 2.2 X10'3 (1.1-4.8); LYMPHOCYTES % (AUTO) 47.3 % (21-51); MEAN CORPUSCULAR HEMOGLOBIN 41.6 PG (27.0-31.0); MEAN CORPUSCULAR HGB CONC 33.9 g/dL (33.0-36.5); MEAN CORPUSCULAR VOLUME 122.5 FL (78-98); MEAN PLATELET VOLUME 8.4 FL (7.4-10.4); MONOCYTES # (AUTO) 0.2 X10'3 (0-0.9); MONOCYTES % (AUTO) 4.1 % (2-12); NEUTROPHILS # (AUTO) 2.1 X10'3 (1.8-7.7); NEUTROPHILS % (AUTO) 44.2 % (42-75); PLATELET COUNT 159 X10'3 (140-440); RED BLOOD COUNT 2.34 X10'6 (4.20-5.60); RED CELL DISTRIBUTION WIDTH 25.3 % (11.5-14.5); WHITE BLOOD COUNT 4.7 X10'3 (4.5-11.0)
[2023-02-20 06:26] LABS: ALANINE AMINOTRANSFERASE 19 U/L (12-78); ALBUMIN 2.2 G/DL (3.4-5.0); ALBUMIN/GLOBULIN RATIO 0.8 (1.1-1.5); ALKALINE PHOSPHATASE 152 IU/L (46-116); ANION GAP 8 (8-16); ASPARTATE AMINO TRANSFERASE 47 U/L (10-37); BILIRUBIN,TOTAL 0.3 MG/DL (0.1-1.0); BLOOD UREA NITROGEN 3 MG/DL (7-18); BUN/CREATININE RATIO 4.4 (10.0-20.0); CALCIUM 8.1 MG/DL (8.5-10.1); CHLORIDE 108 MMOL/L (99-107); CREATININE 0.68 MG/DL (0.40-0.90); GLUCOSE 89 MG/DL (70-104); SODIUM 142 MMOL/L (135-145); TOTAL CARBON DIOXIDE 25.9 MMOL/L (24-32); TOTAL PROTEIN 4.9 G/DL (6.4-8.2); eGFR 90 ML/MIN
[2023-02-20 08:00] VITALS: RESP 18; O2SAT 100
[2023-02-20] MEDS: ROSUVASTATIN CALCIUM 5 MG TABLET PO SCH (08:00)
[2023-02-20] MEDS: pantoprazole 40mg Tablet.DR PO SCH (08:06)
[2023-02-20] MEDS: lisinopril 20mg tablet PO SCH (08:09)
[2023-02-20] MEDS: nicotine 21mg patch - 24 hr TD SCH (08:10)
[2023-02-20] MEDS: K and/or MAG REPLACEMENT MC SCH (08:12)
[2023-02-20] MEDS: mag hydrox/Alum hydrox/simeth 30ml oral suspension PO PRN (08:43)
[2023-02-20] MEDS ORDERED: apixaban 5mg tablet PO SCH (09:10)
[2023-02-20] MEDS ORDERED: PANT40TA54 PO (09:30)
[2023-02-20] MEDS ORDERED: LISI20TA28 PO (09:30)
[2023-02-20 11:00] VITALS: BP 134/66; PULSE 78; RESP 20; TEMP 97.6; O2SAT 99
[2023-02-20] MEDS ORDERED: APIX5TAB3 PO (11:49)
--- NOTE | 2023-02-20 12:35 | NUR ---
Pt AOX4, VSS on RA. Pt denies pain. Pt's PIV removed with canula intact. Pt's discharge paperwork reviewed and questions answered. Pt's friend at bedside. Pt discharged to home and her friend will drive the patient. Pt in NAD.
== END 2023-02-20 12:34 | disposition home or self-care (01) | DRG 134 ==
LOC: ER 12:34 → ED HOLD 22:09 → EDBEDREQ 02-18 04:57 → PCU 3S 02-18 08:00
PROVIDERS: ADMIT Family Medicine; ATTEND Family Medicine
PROC: B32T1ZZ Computerized Tomography (CT Scan) of Left Pulmonary Artery using Low Osmolar Contrast (ICD-10-PCS; principal; 2023-02-17)
PROC: B3201ZZ Computerized Tomography (CT Scan) of Thoracic Aorta using Low Osmolar Contrast (ICD-10-PCS; 2023-02-17)
PROC: B32S1ZZ Computerized Tomography (CT Scan) of Right Pulmonary Artery using Low Osmolar Contrast (ICD-10-PCS; 2023-02-17)
DX: I26.94 Multiple subsegmental thrombotic pulmonary emboli without acute cor pulmonale (principal); N17.9 Acute kidney failure, unspecified; I82.412 Acute embolism and thrombosis of left femoral vein; Z20.822 Contact with and (suspected) exposure to COVID-19; D53.9 Nutritional anemia, unspecified; E86.1 Hypovolemia; E87.6 Hypokalemia; F17.210 Nicotine dependence, cigarettes, uncomplicated; I82.512 Chronic embolism and thrombosis of left femoral vein; I82.532 Chronic embolism and thrombosis of left popliteal vein; I12.9 Hypertensive chronic kidney disease with stage 1 through stage 4 chronic kidney disease, or unspecified chronic kidney disease; E78.5 Hyperlipidemia, unspecified; R74.01 Elevation of levels of liver transaminase levels; R82.71 Bacteriuria; I82.432 Acute embolism and thrombosis of left popliteal vein; J44.9 Chronic obstructive pulmonary disease, unspecified; N18.9 Chronic kidney disease, unspecified; Z79.01 Long term (current) use of anticoagulants; Z93.3 Colostomy status; Z98.891 History of uterine scar from previous surgery; Z98.51 Tubal ligation status; Z88.8 Allergy status to other drugs, medicaments and biological substances; Z79.899 Other long term (current) drug therapy; Z71.6 Tobacco abuse counseling
CPT/HCPCS: 36415; 80053; 80061; 80305; 81001; 82550; 83036; 83605; 83690; 83735; 83880; 84100; 84443; 84484; 85008; 85025; 85379; 85384; 85610; 85730; 87088; 87811; 93005; 93306; 93971; 94640; 94760; 99285; G0378; J1644; J2270; J2405; J3480; J3490; Q9967

== ENCOUNTER 2023-05-25 08:17 | Inpatient (IN) | payer MEDICAID ==
[~2023-05-25] VITALS: Ht 162.6 cm; Wt 57.7 kg
[~2023-05-25 08:17] MED LIST changes: +APIX5TAB3 PO; +LISI20TA28 PO; -LISI40TA13 PO; +PANT40TA54 PO; -POLY17PO10 PO; -PSYL0.4C2 PO
[2023-05-25 10:58] LABS: BASOPHILS # (AUTO) 0.1 X10'3 (0-0.2); BASOPHILS % (AUTO) 0.9 % (0-1); EOSINOPHILS # (AUTO) 0.1 X10'3 (0-0.9); HEMATOCRIT 27.9 % (35.0-45.0); HEMOGLOBIN 9.7 g/dl (12.0-16.0); LYMPHOCYTES # (AUTO) 2.1 X10'3 (1.1-4.8); LYMPHOCYTES % (AUTO) 30.5 % (21-51); MEAN CORPUSCULAR HEMOGLOBIN 43.4 PG (27.0-31.0); MEAN CORPUSCULAR HGB CONC 34.6 g/dL (33.0-36.5); MEAN PLATELET VOLUME 9.4 FL (7.4-10.4); MONOCYTES # (AUTO) 0.2 X10'3 (0-0.9); MONOCYTES % (AUTO) 3.7 % (2-12); NEUTROPHILS # (AUTO) 4.3 X10'3 (1.8-7.7); NEUTROPHILS % (AUTO) 63.9 % (42-75); PLATELET COUNT 172 X10'3 (140-440); RED BLOOD COUNT 2.23 X10'6 (4.20-5.60); RED CELL DISTRIBUTION WIDTH 23.7 % (11.5-14.5); WHITE BLOOD COUNT 6.7 X10'3 (4.5-11.0)
[2023-05-25 11:03] LABS: MEAN CORPUSCULAR VOLUME 125.4 FL (78-98)
[2023-05-25 11:15] LABS: ANISOCYTOSIS 3+; PLATELET ESTIMATE NORMAL
[2023-05-25 11:16] LABS: ACANTHOCYTES FEW; TEAR DROP CELLS FEW
[2023-05-25 11:17] LABS: SCHISTOCYTES FEW
[2023-05-25 11:22] LABS: ALANINE AMINOTRANSFERASE 18 U/L (12-78); ALBUMIN 2.7 G/DL (3.4-5.0); ALBUMIN/GLOBULIN RATIO 0.8 (1.1-1.5); ALKALINE PHOSPHATASE 174 IU/L (46-116); ANION GAP 12 (8-16); ASPARTATE AMINO TRANSFERASE 53 U/L (10-37); BILIRUBIN,TOTAL 1.1 MG/DL (0.1-1.0); BLOOD UREA NITROGEN 9 MG/DL (7-18); CALCIUM 8.1 MG/DL (8.5-10.1); CHLORIDE 104 MMOL/L (99-107); CREATININE 1.12 MG/DL (0.40-0.90); GLUCOSE 107 MG/DL (70-104); PRO BRAIN NATRIURETIC PEPTIDE 641 PG/ML (0-125); SODIUM 143 MMOL/L (135-145); TOTAL PROTEIN 5.9 G/DL (6.4-8.2); eCRCL 48 ML/MIN; eGFR 50 ML/MIN
[2023-05-25 11:29] LABS: POTASSIUM 2.6 MMOL/L (3.5-5.1)
[2023-05-25] MEDS ORDERED: potassium Cl 20 mEq SR tablet PO ONE (14:30)
[2023-05-25] MEDS ORDERED: normal saline 1000ml 1,000 ML IV ONE (14:30)
[2023-05-25] MEDS ORDERED: folic acid 1mg tablet PO ONE (14:30)
[2023-05-25] MEDS ORDERED: magnesium 2GM in 50ml NS 50 ML IV ONE (14:30)
[2023-05-25] MEDS ORDERED: thiamine 100mg tablet PO ONE (14:30)
[2023-05-25] MEDS ORDERED: potassium Cl 40MEQ/1/2NS 520ml 520 ML IV ONE (14:30)
[2023-05-25] MEDS ORDERED: iohexol 350MG/ML 100ml bottle IV ONE (15:25)
[2023-05-25] MEDS ORDERED: LORazepam 1 MG tablet PO ONE (17:20)
[2023-05-25] MEDS ORDERED: mag hydrox/Alum hydrox/simeth 30ml oral suspension PO PRN (18:10)
[2023-05-25] MEDS ORDERED: ondansetron/PF 4mg/2ml inj IV PRN (18:10)
[2023-05-25] MEDS ORDERED: haloperidol 5mg tablet PO PRN (18:10)
[2023-05-25] MEDS ORDERED: morphine 2 MG/ML inj. syringe IV PRN ×2 (18:10)
[2023-05-25] MEDS ORDERED: magnesium hydroxide 30ml (MOM) UD suspension PO PRN (18:10)
[2023-05-25] MEDS ORDERED: magnesium 4gm in 100ml NS 100 ML IV PRN (18:10)
[2023-05-25] MEDS ORDERED: potassium Cl 40MEQ/1/2NS 520ml 520 ML IV PRN (18:10)
[2023-05-25] MEDS ORDERED: potassium Cl 20 mEq SR tablet PO PRN (18:10)
[2023-05-25] MEDS ORDERED: acetaminophen 325mg tablet PO PRN ×2 (18:10)
[2023-05-25] MEDS ORDERED: magnesium 2GM in 50ml NS 50 ML IV PRN (18:10)
[2023-05-25] MEDS: nicotine 14mg patch - 24hr TD SCH (18:50)
[2023-05-25] MEDS: docusate sod 100mg capsule PO SCH (20:00)
[2023-05-25] MEDS: potassium Cl 20mEq in NS 1,000 ML IV SCH (20:00)
[2023-05-25] MEDS: thiamine 100mg tablet PO SCH (20:24)
[2023-05-25] MEDS: apixaban 5mg tablet PO SCH (20:24)
[2023-05-25] MEDS: K and/or MAG REPLACEMENT MC SCH (20:30)
[2023-05-25] MEDS: HYDROcodone/acetaminophen 5mg/325mg tablet PO PRN (20:49)
[2023-05-26] MEDS: LORazepam 2 mg/ml vial IV PRN ×2 (04:33→13:57)
[2023-05-26 05:53] LABS: BILIRUBIN,URINE NEGATIVE (Neg); CLARITY,URINE SLIGHTLY CLOUDY (Clear); COLOR,URINE YELLOW (Yellow); GLUCOSE, URINE NEGATIVE (Neg); KETONES,URINE NEGATIVE (Neg); LEUKOCYTE ESTERASE ,URINE NEGATIVE (Neg); NITRITES, URINE POSITIVE (Neg); OCCULT BLOOD,URINE TRACE-INTACT (Neg); PH,URINE 6.5 (4.8-8.0); PROTEIN,URINE 30 mg/dl (Neg); UROBILINOGEN,URINE 0.2 E.U/dL (0.2-1.0)
[2023-05-26 06:00] LABS: UA COLLECTION TYPE OTHER
[2023-05-26 06:13] LABS: SQUAMOUS EPITHELIAL CELL,UR MODERATE /LPF (FEW)
[2023-05-26 06:14] LABS: BACTERIA,URINE 4+ /HPF (Neg); RBC,URINE 0-2 /HPF (0-2)
[2023-05-26] MEDS: docusate sod 100mg capsule PO SCH ×2 (08:00→20:00)
[2023-05-26] MEDS: K and/or MAG REPLACEMENT MC SCH ×2 (08:00→20:00)
--- NOTE | 2023-05-26 08:41 | NUR ---
Dr. Fernandes contacted requesting repeat chemistry panel. K+ was 2.9 yesterday with no redraw since replacements completed.
[2023-05-26] MEDS: thiamine 100mg tablet PO SCH ×3 (08:54→20:59)
[2023-05-26] MEDS: multivitamins, therapeutics tablet PO SCH (08:54)
[2023-05-26] MEDS: HYDROcodone/acetaminophen 10/325mg tab PO PRN (08:54)
[2023-05-26] MEDS: apixaban 5mg tablet PO SCH ×2 (08:54→20:59)
[2023-05-26] MEDS: nicotine 14mg patch - 24hr TD SCH (08:55)
[2023-05-26 09:29] LABS: BASOPHILS % (AUTO) 0.8 % (0-1); EOSINOPHILS # (AUTO) 0.1 X10'3 (0-0.9); EOSINOPHILS % (AUTO) 1.6 % (0-6); LYMPHOCYTES # (AUTO) 1.4 X10'3 (1.1-4.8); MEAN CORPUSCULAR HEMOGLOBIN 42.6 PG (27.0-31.0); MEAN CORPUSCULAR HGB CONC 33.5 g/dL (33.0-36.5); MEAN CORPUSCULAR VOLUME 127.1 FL (78-98); MEAN PLATELET VOLUME 9.1 FL (7.4-10.4); MONOCYTES # (AUTO) 0.2 X10'3 (0-0.9); MONOCYTES % (AUTO) 4.4 % (2-12); NEUTROPHILS % (AUTO) 55.2 % (42-75); PLATELET COUNT 102 X10'3 (140-440); RED BLOOD COUNT 1.62 X10'6 (4.20-5.60); RED CELL DISTRIBUTION WIDTH 23.4 % (11.5-14.5); WHITE BLOOD COUNT 3.6 X10'3 (4.5-11.0)
[2023-05-26 09:36] LABS: HEMATOCRIT 20.6 % (35.0-45.0); HEMOGLOBIN 6.9 g/dl (12.0-16.0)
[2023-05-26 10:05] LABS: ANISOCYTOSIS 3+; ELLIPTOCYTES FEW; PLATELET ESTIMATE DECREASED; TEAR DROP CELLS FEW
[2023-05-26 10:06] LABS: SCHISTOCYTES FEW
[2023-05-26 10:07] LABS: ALANINE AMINOTRANSFERASE 11 U/L (12-78); ALBUMIN 2.1 G/DL (3.4-5.0); ALBUMIN/GLOBULIN RATIO 0.8 (1.1-1.5); ALKALINE PHOSPHATASE 140 IU/L (46-116); ANION GAP 10 (8-16); ASPARTATE AMINO TRANSFERASE 34 U/L (10-37); BILIRUBIN,TOTAL 0.5 MG/DL (0.1-1.0); BLOOD UREA NITROGEN 8 MG/DL (7-18); CHLORIDE 108 MMOL/L (99-107); GLUCOSE 82 MG/DL (70-104); LIPASE 11 U/L (16-77); MAGNESIUM 1.6 MG/DL (1.5-2.4); PHOSPHORUS 2.2 MG/DL (2.3-4.5); POTASSIUM 3.1 MMOL/L (3.5-5.1); SODIUM 139 MMOL/L (135-145); TOTAL CARBON DIOXIDE 21.3 MMOL/L (24-32); TOTAL PROTEIN 4.6 G/DL (6.4-8.2); eCRCL 54 ML/MIN; eGFR 57 ML/MIN
[2023-05-26] MEDS: potassium Cl 20mEq in NS 1,000 ML IV SCH ×3 (10:32→21:04)
[2023-05-26] MEDS ORDERED: PANT-47 PO (11:03)
[2023-05-26] MEDS ORDERED: LORA-269 PO (11:03)
[2023-05-26] MEDS ORDERED: HYDR-3964 PO (11:03)
[2023-05-26] MEDS ORDERED: APIX5TAB3 PO (11:03)
[2023-05-26] MEDS ORDERED: LISI20TA28 PO (11:03)
[2023-05-26] MEDS ORDERED: pantoprazole 40mg IV 80 MG in normal saline 100ml IV soln 100 ML IV ONE (12:35)
[2023-05-26 13:08] VITALS: BP 100/65; PULSE 102; RESP 12; TEMP 98.1
--- NOTE | 2023-05-26 13:10 | NUR ---
Transfusion started, pt identifiers used. Rate at 60mL/h for first fifteen minutes per order.
[2023-05-26 13:20] VITALS: BP 117/67; PULSE 86; RESP 18; TEMP 98.1
--- NOTE | 2023-05-26 13:29 | NUR ---
increased rate to 150mL/h
--- NOTE | 2023-05-26 13:45 | NUR ---
Pt tolerating transfusion well, friends at bedside. No complaints from patient.s
[2023-05-26 13:49] VITALS: BP 97/54; PULSE 93; RESP 16; TEMP 97.4
[2023-05-26 14:00] VITALS: BP 106/69; PULSE 91; RESP 16; TEMP 98
[2023-05-26 14:48] VITALS: BP 114/68; PULSE 106; RESP 16; TEMP 98.4
--- NOTE | 2023-05-26 14:53 | NUR ---
PT CONTINUES TO TOLERATE BLOOD TRANSFUSION WELL, NO COMPLAINTS.
[2023-05-26 15:48] VITALS: BP 111/65; PULSE 87; RESP 16; TEMP 98.2
--- NOTE | 2023-05-26 16:02 | NUR ---
Blood complete, no complaints from patient.
[2023-05-26] MEDS: potassium Cl 20 mEq SR tablet PO PRN ×2 (16:13→20:59)
[2023-05-26] MEDS: pantoprazole 40MG/NS 100ML BAG 100 ML IV SCH ×2 (16:14→20:59)
[2023-05-26 21:30] LABS: HEMOGLOBIN 7.2 g/dl (12.0-16.0); MEAN CORPUSCULAR HEMOGLOBIN 40.5 PG (27.0-31.0); MEAN CORPUSCULAR HGB CONC 34.2 g/dL (33.0-36.5); MEAN CORPUSCULAR VOLUME 118.6 FL (78-98); MEAN PLATELET VOLUME 8.5 FL (7.4-10.4); PLATELET COUNT 97 X10'3 (140-440); RED BLOOD COUNT 1.77 X10'6 (4.20-5.60); RED CELL DISTRIBUTION WIDTH 28.8 % (11.5-14.5); WHITE BLOOD COUNT 3.7 X10'3 (4.5-11.0)
--- NOTE | 2023-05-26 21:40 | NUR ---
assumed care of pt from Tk ARELLANO.
[2023-05-26 21:44] LABS: ALANINE AMINOTRANSFERASE 10 U/L (12-78); ALBUMIN 1.9 G/DL (3.4-5.0); ALBUMIN/GLOBULIN RATIO 0.9 (1.1-1.5); ALKALINE PHOSPHATASE 127 IU/L (46-116); ANION GAP 10 (8-16); ASPARTATE AMINO TRANSFERASE 35 U/L (10-37); BILIRUBIN,TOTAL 0.5 MG/DL (0.1-1.0); BLOOD UREA NITROGEN 6 MG/DL (7-18); BUN/CREATININE RATIO 6.7 (10.0-20.0); CALCIUM 6.8 MG/DL (8.5-10.1); CHLORIDE 109 MMOL/L (99-107); GLUCOSE 77 MG/DL (70-104); POTASSIUM 3.5 MMOL/L (3.5-5.1); SODIUM 139 MMOL/L (135-145); TOTAL CARBON DIOXIDE 19.6 MMOL/L (24-32); TOTAL PROTEIN 4.1 G/DL (6.4-8.2); eCRCL 60 ML/MIN; eGFR 65 ML/MIN
--- NOTE | 2023-05-26 22:00 | NUR ---
Dr Wilson aware of H&H results, gave verbal order to transfuse 1 unit PRBC. Called blood bank, they will call back when unit is ready
--- NOTE | 2023-05-26 23:11 | NUR ---
pt is receiving 2nd unit of PRBC, unable to scan with computer, used downtime form given by blood bank staff. Pt is resting quietly on bed, resp even and unlabored, skin p/w/d. IV to left arm is patent and clear.
--- NOTE | 2023-05-26 23:25 | NUR ---
pt is tolerating blood transfusion well, no s/s of reaction to receiving PRBC
[2023-05-27] VITALS (10 sets, daily range): BP systolic 107–150; BP diastolic 61–85; PULSE 82–98; RESP 12–25; TEMP 97.1–97.9; O2SAT 94–100
--- NOTE | 2023-05-27 00:20 | NUR ---
Patient found attempting to walk out of room with cigarettes and professor of economics in hand. When asked what patient was doing she stated "what does it look like im doing?". While attempting to redirect patient to room, she became frustrated with staff and difficult to redirect to reality. Patient then accusing "this company" of holding her hostage and "stealing peoples blood from the basement. Patient AOx3, GSC 14. When asked where patient is she states "wherever I want to be". Relayed to patient that she was admitted to the hospital and she stated "this doesn't look like a hospital too me". Patient then attempted to grab at IVs and states "what even are these i've never seen them before". VANNESSA 14 - Ativan to be given as ordered.
[2023-05-27] MEDS: LORazepam 2 mg/ml vial IV PRN ×5 (00:31→05:11)
--- NOTE | 2023-05-27 01:05 | NUR ---
Patient demanding to leave, unable to be redirected and is getting increasingly aggitated with staff. Called Dr. Wilson to come speak with patient and evaluate her. MD refused to come see patient and stated "call security", I questioned his reasoning and he stated "for treatment". Informed him that this was not a security matter but instead a matter of him coming to speak with and evaluate an admitted patient, he continued to refuse to come to ED to see patient.
[2023-05-27] MEDS: pantoprazole 40MG/NS 100ML BAG 100 ML IV SCH ×3 (01:22→11:00)
[2023-05-27] MEDS: haloperidol lactate 5mg/ml inj IM PRN ×3 (01:22→11:12)
--- NOTE | 2023-05-27 01:26 | NUR ---
Patient became physical with staff attempting to push myself and EMT to "go smoke a cigarette". Patient then called significant other demanding to be picked up from hospital and getting loud on phone with him. Dr Wilson called again to inform him that patient is insisting on leaving, no orders and continues to be unwilling to come see patient. IM Haldol given per ordered.
--- NOTE | 2023-05-27 01:30 | NUR ---
Patient threatening to harm staff. Stated "wait until i get you alone, im going to make you wish you were " among various other threats.
--- NOTE | 2023-05-27 01:36 | NUR ---
Recieved call from patient's sister Demetria who got a phone call from patient's significant other about patient behavior on phone. Sister was understanding of patient condition and stated "yeah this has happened before and I know how she can get". Reassured Demetria that patient was safe and we are following the ETOH protocols we have in place to get Nancy to state of comfort. Demetria, sister, informed me that we can call her at any time and she would be willing to come in to speak with her sister. I insisted that she rest as it was the middle of the night and we would let her know if patient condition changed.
--- NOTE | 2023-05-27 02:00 | NUR ---
Per refrigerator repair technician, while trying to empty patient's ostomy bag, patient pushed tech's hand away, ripped bag off and threw it on the floor.
--- NOTE | 2023-05-27 02:05 | NUR ---
Patient continuing to yell out and threaten staff.
--- NOTE | 2023-05-27 02:38 | NUR ---
Patient becoming more assaultive with staff, trying to get out of bed to "punch you all in the face". Call to Dr Wilson, telephone order received for restraints.
--- NOTE | 2023-05-27 02:49 | NUR ---
Severe agitation, agression towards staff. Medication given per order.
--- NOTE | 2023-05-27 03:07 | NUR ---
Purewick in place with brief.
--- NOTE | 2023-05-27 03:55 | NUR ---
Patient given small sips of water, tolerated without issue. Extremely out of touch with reality and continuing to yell out and scream intermittently. CIWA 18, Ativan given as ordered.
--- NOTE | 2023-05-27 05:05 | NUR ---
Restraints removed at 0445 after patient fell asleep, minutes after removing restraints patient began attempting to leave again, grabbing at staff and screaming. Restraints reapplied, medications given per protocol.
--- NOTE | 2023-05-27 07:01 | NUR ---
Patient in room ED 15. I have received report from Yvonne SALINAS RN and had the opportunity to ask questions and assume patient care.
[2023-05-27 07:52] LABS: BASOPHILS % (AUTO) 0.5 % (0-1); EOSINOPHILS # (AUTO) 0.1 X10'3 (0-0.9); EOSINOPHILS % (AUTO) 1.8 % (0-6); HEMATOCRIT 27.2 % (35.0-45.0); HEMOGLOBIN 9.3 g/dl (12.0-16.0); LYMPHOCYTES # (AUTO) 1.2 X10'3 (1.1-4.8); LYMPHOCYTES % (AUTO) 34.8 % (21-51); MEAN CORPUSCULAR HEMOGLOBIN 38.6 PG (27.0-31.0); MEAN PLATELET VOLUME 8.4 FL (7.4-10.4); MONOCYTES # (AUTO) 0.2 X10'3 (0-0.9); MONOCYTES % (AUTO) 5.9 % (2-12); NEUTROPHILS # (AUTO) 1.9 X10'3 (1.8-7.7); PLATELET COUNT 98 X10'3 (140-440); WHITE BLOOD COUNT 3.3 X10'3 (4.5-11.0)
[2023-05-27 07:59] LABS: INR 1.1 INR; PROTHROMBIN TIME 11.5 SECONDS (9.0-12.0)
[2023-05-27] MEDS: docusate sod 100mg capsule PO SCH ×2 (08:00→21:01)
[2023-05-27] MEDS: K and/or MAG REPLACEMENT MC SCH ×2 (08:00→20:11)
[2023-05-27] MEDS: thiamine 100mg tablet PO SCH ×3 (08:00→21:01)
[2023-05-27] MEDS: apixaban 5mg tablet PO SCH ×2 (08:00→21:01)
[2023-05-27] MEDS: multivitamins, therapeutics tablet PO SCH (08:00)
[2023-05-27 08:20] LABS: ALANINE AMINOTRANSFERASE 13 U/L (12-78); ALBUMIN 2.2 G/DL (3.4-5.0); ALBUMIN/GLOBULIN RATIO 0.9 (1.1-1.5); ALKALINE PHOSPHATASE 141 IU/L (46-116); ANION GAP 9 (8-16); ASPARTATE AMINO TRANSFERASE 41 U/L (10-37); BILIRUBIN,TOTAL 0.8 MG/DL (0.1-1.0); BLOOD UREA NITROGEN 5 MG/DL (7-18); CHLORIDE 112 MMOL/L (99-107); CREATININE 1.01 MG/DL (0.40-0.90); GLUCOSE 80 MG/DL (70-104); LIPASE 10 U/L (16-77); MAGNESIUM 1.5 MG/DL (1.5-2.4); PHOSPHORUS 2.1 MG/DL (2.3-4.5); POTASSIUM 3.8 MMOL/L (3.5-5.1); SODIUM 141 MMOL/L (135-145); TOTAL CARBON DIOXIDE 20.1 MMOL/L (24-32); TOTAL PROTEIN 4.7 G/DL (6.4-8.2); eCRCL 54 ML/MIN; eGFR 57 ML/MIN
[2023-05-27 08:31] LABS: CALCIUM 7.6 MG/DL (8.5-10.1)
[2023-05-27 08:41] LABS: MEAN CORPUSCULAR VOLUME 113.6 FL (78-98)
[2023-05-27] MEDS: nicotine 14mg patch - 24hr TD SCH (09:11)
--- NOTE | 2023-05-27 13:06 | NUR ---
Pt had been resting in bed after being prompted to rest this morning. She remained calm for a few hours. Afterward pt became extremely agitated and insisted on getting out of bed naked and screaming out for people who were not in the room. Pt became combative and tried to hit and bite the staff in the room. I gave the pt a dose of Haldol IM and pt calmed down after 30 minutes. A friend of the pt came to the hospital and sat with the pt in the room. Pt woke up and quickly pulled out her IV. We have a staff member in the room keeping an eye on her so no more damage is self inflicted by the pt.
[2023-05-27] MEDS ORDERED: LORazepam 1 MG tablet PO PRN (13:15)
[2023-05-27] MEDS ORDERED: CefTRIAXone/D5W-Rocephin 1gm 50 ML IV ONE (13:15)
--- NOTE | 2023-05-27 13:29 | NUR ---
Malnutrition consult: Pt reports 2-13 lb wt loss with decreased appetite/PO intake per malnutrition risk screen with RN. Pt not appropriate for interview at this time as per EMR pt placed in restraints overnight d/t agitation and confusion. Pt with an active clear liquid diet order however documented to be NPO, pending EGD per physician note. Physical assessment pending at this time though per physician notes pt does not have edema and pt appears well developed well nourished. Unable to fully assess for malnutrition at this time d/t limited information. Will f/u at another time. Addendum: 05/27/23 at [address] Amended: Links added.
[2023-05-27] MEDS ORDERED: MIDAZolam 1 MG/ML 5ML VIAL ONE (15:37)
[2023-05-27] MEDS ORDERED: diphenhydrAMINE 50 mg/ml inj ONE (15:37)
[2023-05-27] MEDS ORDERED: fentaNYL/PF 50MCG/1 ML 2ML syringe ONE (15:37)
[2023-05-27] MEDS ORDERED: LIDOcaine Viscous 15ml cup ONE (15:38)
--- NOTE | 2023-05-27 17:53 | NUR ---
PAGER ID: [phone] MESSAGE: [id number], Pt has come back from GI. Her EGD was negative for any active bleeding. Did you want her Protonix continued or swapped to PO? Evangelista [phone]
[2023-05-27] MEDS ORDERED: LORazepam 2 mg/ml vial IV PRN (18:10)
--- NOTE | 2023-05-27 18:53 | NUR ---
Problems reprioritized. Patient report given, questions answered & plan of care reviewed with Prudence RN.
[2023-05-27] MEDS ORDERED: Neutra Phos packet PO PRN (18:55)
--- NOTE | 2023-05-27 19:14 | NUR ---
Patient in room PCU 3022. I have received report from ADOLPH ARELLANO and had the opportunity to ask questions and assume patient care.
[2023-05-27] MEDS: LORazepam 1 MG tablet PO PRN (21:02)
[2023-05-27] MEDS: pantoprazole 40mg Tablet.DR PO SCH (21:02)
[2023-05-28 02:00] VITALS: BP 114/72; PULSE 87; RESP 16; TEMP 98; O2SAT 96
[2023-05-28 06:30] VITALS: BP 124/49; PULSE 96; RESP 22; TEMP 98.1; O2SAT 96
--- NOTE | 2023-05-28 06:53 | NUR ---
Problems reprioritized. Patient report given, questions answered & plan of care reviewed with NICKY ARELLANO.
[2023-05-28] MEDS: docusate sod 100mg capsule PO SCH ×2 (07:25→19:19)
[2023-05-28] MEDS: nicotine 14mg patch - 24hr TD SCH (07:26)
[2023-05-28] MEDS: pantoprazole 40mg Tablet.DR PO SCH ×2 (07:27→19:19)
[2023-05-28] MEDS: multivitamins, therapeutics tablet PO SCH (07:27)
[2023-05-28] MEDS: thiamine 100mg tablet PO SCH ×3 (07:27→19:19)
[2023-05-28] MEDS: lisinopril 20mg tablet PO SCH (07:28)
[2023-05-28] MEDS: apixaban 5mg tablet PO SCH ×2 (07:28→19:19)
[2023-05-28] MEDS: ROSUVASTATIN CALCIUM 5 MG TABLET PO SCH (07:28)
[2023-05-28] MEDS: LORazepam 1 MG tablet PO PRN ×3 (07:34→19:19)
[2023-05-28 07:51] LABS: BASOPHILS % (AUTO) 0.7 % (0-1); EOSINOPHILS # (AUTO) 0.1 X10'3 (0-0.9); EOSINOPHILS % (AUTO) 1.8 % (0-6); HEMATOCRIT 27.3 % (35.0-45.0); HEMOGLOBIN 9.4 g/dl (12.0-16.0); LYMPHOCYTES # (AUTO) 1.1 X10'3 (1.1-4.8); LYMPHOCYTES % (AUTO) 33.9 % (21-51); MEAN CORPUSCULAR HGB CONC 34.3 g/dL (33.0-36.5); MEAN CORPUSCULAR VOLUME 113.6 FL (78-98); MEAN PLATELET VOLUME 8.4 FL (7.4-10.4); MONOCYTES # (AUTO) 0.2 X10'3 (0-0.9); MONOCYTES % (AUTO) 6.2 % (2-12); NEUTROPHILS # (AUTO) 1.8 X10'3 (1.8-7.7); NEUTROPHILS % (AUTO) 57.4 % (42-75); PLATELET COUNT 113 X10'3 (140-440); WHITE BLOOD COUNT 3.2 X10'3 (4.5-11.0)
[2023-05-28 07:59] LABS: INR 1.1 INR; PROTHROMBIN TIME 11.4 SECONDS (9.0-12.0)
[2023-05-28] MEDS ORDERED: CefTRIAXone/D5W-Rocephin 1gm 50 ML IV SCH (08:00)
[2023-05-28 08:06] LABS: ALANINE AMINOTRANSFERASE 16 U/L (12-78); ALBUMIN 2.1 G/DL (3.4-5.0); ALBUMIN/GLOBULIN RATIO 0.8 (1.1-1.5); ALKALINE PHOSPHATASE 146 IU/L (46-116); ANION GAP 9 (8-16); ASPARTATE AMINO TRANSFERASE 46 U/L (10-37); BILIRUBIN,TOTAL 0.5 MG/DL (0.1-1.0); BLOOD UREA NITROGEN 2 MG/DL (7-18); BUN/CREATININE RATIO 2.1 (10.0-20.0); CALCIUM 7.5 MG/DL (8.5-10.1); CHLORIDE 111 MMOL/L (99-107); CREATININE 0.94 MG/DL (0.40-0.90); GLUCOSE 87 MG/DL (70-104); LIPASE 13 U/L (16-77); MAGNESIUM 1.3 MG/DL (1.5-2.4); PHOSPHORUS 2.9 MG/DL (2.3-4.5); POTASSIUM 3.5 MMOL/L (3.5-5.1); SODIUM 142 MMOL/L (135-145); TOTAL CARBON DIOXIDE 22.2 MMOL/L (24-32); TOTAL PROTEIN 4.6 G/DL (6.4-8.2); eCRCL 58 ML/MIN; eGFR 62 ML/MIN
[2023-05-28] MEDS ORDERED: sulfamethoxazole/trimethoprim DS (800/160mg) tablet PO SCH (08:20)
[2023-05-28 08:21] LABS: ANISOCYTOSIS 3+; PLATELET ESTIMATE DECREASED; POIKILOCYTOSIS FEW
--- NOTE | 2023-05-28 08:26 | NUR ---
mdro in urine, dr Fernandes aware
[2023-05-28] MEDS: magnesium Cl slow-release 64mg tablet PO PRN ×2 (08:44→19:20)
[2023-05-28] MEDS: K and/or MAG REPLACEMENT MC SCH (08:44)
[2023-05-28] MEDS: sulfamethoxazole/trimethoprim DS (800/160mg) tablet PO SCH ×2 (10:02→19:19)
[2023-05-28 11:00] VITALS: BP 99/60; PULSE 110; RESP 19; TEMP 99.7; O2SAT 96
--- NOTE | 2023-05-28 11:11 | NUR ---
F/u for malnutrition consult: Pt eating well, documented with 100% PO intake of meals. No documented significant decrease in muscle strength or edema and pt appears well developed well nourished per physician notes. Pt currently lacks a minimum of two criteria for malnutrition though will continue to follow and monitor s/s malnutrition. Addendum: 05/28/23 at [address] Amended: Links added.
[2023-05-28] MEDS: HYDROcodone/acetaminophen 5mg/325mg tablet PO PRN (15:05)
[2023-05-28 15:13] VITALS: BP 120/64; PULSE 104; RESP 26; TEMP 99.6; O2SAT 97
[2023-05-28] MEDS ORDERED: PANT-47 PO (16:13)
[2023-05-28] MEDS ORDERED: SULF1TAB45 PO (16:13)
[2023-05-28 18:00] VITALS: BP 116/66; PULSE 97; RESP 12; TEMP 97.3; O2SAT 97
--- NOTE | 2023-05-28 18:08 | NUR ---
Report given to Antonio who will be taking over care. Patient doing well, eating dinner. No current needs at this time.
[2023-05-28 20:00] VITALS: RESP 16; O2SAT 97
[2023-05-28] MEDS: HYDROcodone/acetaminophen 10/325mg tab PO PRN (21:00)
[2023-05-29 02:00] VITALS: BP 97/57; PULSE 80; RESP 14; TEMP 97.9; O2SAT 96
[2023-05-29 06:24] LABS: PROTHROMBIN TIME 10.9 SECONDS (9.0-12.0)
[2023-05-29 06:35] LABS: ALANINE AMINOTRANSFERASE 15 U/L (12-78); ALBUMIN/GLOBULIN RATIO 0.8 (1.1-1.5); ALKALINE PHOSPHATASE 147 IU/L (46-116); ANION GAP 10 (8-16); ASPARTATE AMINO TRANSFERASE 41 U/L (10-37); BILIRUBIN,TOTAL 0.2 MG/DL (0.1-1.0); BLOOD UREA NITROGEN 2 MG/DL (7-18); BUN/CREATININE RATIO 1.8 (10.0-20.0); CALCIUM 7.5 MG/DL (8.5-10.1); CHLORIDE 111 MMOL/L (99-107); CREATININE 1.12 MG/DL (0.40-0.90); GLUCOSE 75 MG/DL (70-104); LIPASE 24 U/L (16-77); MAGNESIUM 1.4 MG/DL (1.5-2.4); PHOSPHORUS 3.2 MG/DL (2.3-4.5); POTASSIUM 3.6 MMOL/L (3.5-5.1); SODIUM 143 MMOL/L (135-145); TOTAL CARBON DIOXIDE 22.4 MMOL/L (24-32); TOTAL PROTEIN 4.5 G/DL (6.4-8.2); eCRCL 48 ML/MIN; eGFR 50 ML/MIN
[2023-05-29 06:37] LABS: BASOPHILS % (AUTO) 0.4 % (0-1); EOSINOPHILS # (AUTO) 0.1 X10'3 (0-0.9); HEMATOCRIT 27.9 % (35.0-45.0); HEMOGLOBIN 9.5 g/dl (12.0-16.0); MEAN CORPUSCULAR HEMOGLOBIN 39.5 PG (27.0-31.0); MEAN CORPUSCULAR HGB CONC 34.2 g/dL (33.0-36.5); MEAN CORPUSCULAR VOLUME 115.7 FL (78-98); MEAN PLATELET VOLUME 8.7 FL (7.4-10.4); MONOCYTES # (AUTO) 0.2 X10'3 (0-0.9); MONOCYTES % (AUTO) 5.7 % (2-12); NEUTROPHILS # (AUTO) 1.9 X10'3 (1.8-7.7); NEUTROPHILS % (AUTO) 43.9 % (42-75); PLATELET COUNT 127 X10'3 (140-440); RED BLOOD COUNT 2.41 X10'6 (4.20-5.60); RED CELL DISTRIBUTION WIDTH 29.7 % (11.5-14.5); WHITE BLOOD COUNT 4.3 X10'3 (4.5-11.0)
[2023-05-29 07:06] VITALS: BP 109/62; PULSE 83; RESP 12; TEMP 98; O2SAT 99
[2023-05-29] MEDS: K and/or MAG REPLACEMENT MC SCH (08:00)
[2023-05-29] MEDS: docusate sod 100mg capsule PO SCH (08:04)
[2023-05-29] MEDS: sulfamethoxazole/trimethoprim DS (800/160mg) tablet PO SCH (08:04)
[2023-05-29] MEDS: pantoprazole 40mg Tablet.DR PO SCH (08:05)
[2023-05-29] MEDS: multivitamins, therapeutics tablet PO SCH (08:05)
[2023-05-29] MEDS: thiamine 100mg tablet PO SCH (08:06)
[2023-05-29] MEDS: lisinopril 20mg tablet PO SCH (08:06)
[2023-05-29] MEDS: apixaban 5mg tablet PO SCH (08:06)
[2023-05-29] MEDS: magnesium Cl slow-release 64mg tablet PO PRN (08:06)
[2023-05-29] MEDS: ROSUVASTATIN CALCIUM 5 MG TABLET PO SCH (08:06)
[2023-05-29] MEDS: LORazepam 1 MG tablet PO PRN (08:13)
[2023-05-29] MEDS: nicotine 14mg patch - 24hr TD SCH (08:18)
[2023-05-29 09:04] LABS: ANISOCYTOSIS 3+; ELLIPTOCYTES FEW; PLATELET ESTIMATE DECREASED; STOMATOCYTES FEW; TEAR DROP CELLS 1+
[2023-05-29 09:47] VITALS: RESP 16
[2023-05-29 11:29] VITALS: BP 99/57; PULSE 85; RESP 19; TEMP 97.3; O2SAT 100
--- NOTE | 2023-05-29 11:44 | NUR ---
Patient is discharged on paper, all education completed with verbal acknowledgement of understanding by patient. Patient has called for a ride and will be waiting. IV removed. Belongings are packed, cell phone and ship's surveyor are in her possession.
[2023-05-30] MEDS ORDERED: folic acid 1mg tablet PO SCH (08:00)
== END 2023-05-29 11:57 | disposition home or self-care (01) | DRG 134 ==
LOC: ER 08:18 → ED HOLD 18:14 → PCU 3S 05-27 08:04 → SUR 3N 05-27 12:37 → PCU 3S 05-27 12:38
PROVIDERS: ADMIT Family Medicine; ATTEND Family Medicine
PROC: B32T1ZZ Computerized Tomography (CT Scan) of Left Pulmonary Artery using Low Osmolar Contrast (ICD-10-PCS; principal; 2023-05-25)
PROC: B3201ZZ Computerized Tomography (CT Scan) of Thoracic Aorta using Low Osmolar Contrast (ICD-10-PCS; 2023-05-25)
PROC: B32S1ZZ Computerized Tomography (CT Scan) of Right Pulmonary Artery using Low Osmolar Contrast (ICD-10-PCS; 2023-05-25)
PROC: 30233N1 Transfusion of Nonautologous Red Blood Cells into Peripheral Vein, Percutaneous Approach (ICD-10-PCS; 2023-05-26)
PROC: 0DB78ZX Excision of Stomach, Pylorus, Via Natural or Artificial Opening Endoscopic, Diagnostic (ICD-10-PCS; 2023-05-27)
DX: I26.99 Other pulmonary embolism without acute cor pulmonale (principal); K29.71 Gastritis, unspecified, with bleeding; I82.512 Chronic embolism and thrombosis of left femoral vein; I82.532 Chronic embolism and thrombosis of left popliteal vein; N39.0 Urinary tract infection, site not specified; Z16.24 Resistance to multiple antibiotics; J45.909 Unspecified asthma, uncomplicated; I10 Essential (primary) hypertension; Z20.822 Contact with and (suspected) exposure to COVID-19; F17.210 Nicotine dependence, cigarettes, uncomplicated; R13.10 Dysphagia, unspecified; F10.10 Alcohol abuse, uncomplicated; E87.6 Hypokalemia; D53.9 Nutritional anemia, unspecified; I73.9 Peripheral vascular disease, unspecified; B96.20 Unspecified Escherichia coli [E. coli] as the cause of diseases classified elsewhere; Z93.3 Colostomy status; Z79.01 Long term (current) use of anticoagulants; Z88.8 Allergy status to other drugs, medicaments and biological substances; Z79.899 Other long term (current) drug therapy
CPT/HCPCS: 36415; 36430; 43239; 70450; 71045; 71275; 80053; 81001; 83605; 83690; 83735; 83880; 84100; 84484; 85008; 85025; 85027; 85610; 86885; 86900; 86901; 86920; 87040; 87077; 87081; 87088; 87186; 87811; 96365; 99152; 99285; A4371; A4421; A4620; A4649; A6258; C9113; G0378; J0696; J1200; J1630; J2060; J2250; J2405; J3010; J3475; J3480; J3490; J7030; J7040; J7120; P9016; Q9967

== ENCOUNTER 2024-07-31 11:18 | Inpatient (IN) | payer MEDICAID ==
[~2024-07-31] VITALS: Ht 162.6 cm; Wt 73.1 kg
[~2024-07-31 11:18] MED LIST changes: +HYDR-3964 PO; +LORA-269 PO; +PANT-47 PO; -PANT40TA54 PO; -ROSU5TAB12 PO; +ROSU5TAB51 PO; +SULF1TAB45 PO
[2024-07-31 12:04] LABS: BASOPHILS % (AUTO) 0.2 % (0-1); EOSINOPHILS % (AUTO) 0 % (0-6); HEMATOCRIT 23.9 % (35.0-45.0); HEMOGLOBIN 8.2 g/dl (12.0-16.0); LYMPHOCYTES # (AUTO) 1.6 X10'3 (1.1-4.8); LYMPHOCYTES % (AUTO) 23.6 % (21-51); MEAN CORPUSCULAR HEMOGLOBIN 43.6 PG (27.0-31.0); MEAN CORPUSCULAR HGB CONC 34.6 g/dL (33.0-36.5); MEAN CORPUSCULAR VOLUME 126.1 FL (78-98); MEAN PLATELET VOLUME 8.9 FL (7.4-10.4); MONOCYTES # (AUTO) 0.6 X10'3 (0-0.9); MONOCYTES % (AUTO) 9.2 % (2-12); NEUTROPHILS # (AUTO) 4.6 X10'3 (1.8-7.7); PLATELET COUNT 159 X10'3 (140-440); RED BLOOD COUNT 1.89 X10'6 (4.20-5.60); RED CELL DISTRIBUTION WIDTH 16.8 % (11.5-14.5); WHITE BLOOD COUNT 6.8 X10'3 (4.5-11.0)
[2024-07-31 12:19] LABS: ALANINE AMINOTRANSFERASE 22 U/L (12-78); ALBUMIN 1.4 G/DL (3.4-5.0); ALBUMIN/GLOBULIN RATIO 0.4 (1.1-1.5); ANION GAP 16 (8-16); ASPARTATE AMINO TRANSFERASE 99 U/L (10-37); BILIRUBIN,TOTAL 0.6 MG/DL (0.1-1.0); BLOOD UREA NITROGEN 44 MG/DL (7-18); BUN/CREATININE RATIO 14.9 (10.0-20.0); CHLORIDE 100 MMOL/L (99-107); CREATININE 2.96 MG/DL (0.40-0.90); GLUCOSE 62 MG/DL (70-104); PRO BRAIN NATRIURETIC PEPTIDE 759 PG/ML (0-125); SODIUM 132 MMOL/L (135-145); TOTAL CARBON DIOXIDE 16.4 MMOL/L (24-32); TOTAL PROTEIN 4.9 G/DL (6.4-8.2); eCRCL 17 ML/MIN; eGFR 16 ML/MIN
[2024-07-31 12:56] LABS: CALCIUM 5.9 MG/DL (8.5-10.1); POTASSIUM 2.5 MMOL/L (3.5-5.1)
[2024-07-31 13:13] LABS: ALKALINE PHOSPHATASE 228 IU/L (46-116)
[2024-07-31] MEDS: normal saline 1000ml 1,000 ML IV ONE ×2 (13:45→14:13)
[2024-07-31] MEDS: LidoCAINE 2% Topical Jelly 11mL syringe (UROJET) TOP ONE ×2 (14:14→20:11)
[2024-07-31] MEDS: CefTRIAXone 2gm/D5W 50ml BAG 50 ML IV ONE (14:14)
[2024-07-31 14:37] LABS: BILIRUBIN,URINE NEGATIVE (Neg); CLARITY,URINE SLIGHTLY CLOUDY (Clear); COLOR,URINE YELLOW (Yellow); GLUCOSE, URINE NEGATIVE (Neg); KETONES,URINE TRACE mg/dl (Neg); LEUKOCYTE ESTERASE ,URINE NEGATIVE (Neg); NITRITES, URINE POSITIVE (Neg); OCCULT BLOOD,URINE TRACE-INTACT (Neg); PROTEIN,URINE 30 mg/dl (Neg); UROBILINOGEN,URINE 0.2 E.U/dL (0.2-1.0)
[2024-07-31 15:01] LABS: MAGNESIUM 1.7 MG/DL (1.5-2.4); PHOSPHORUS 5.5 MG/DL (2.3-4.5)
[2024-07-31] MEDS ORDERED: calcium gluconate inj. 2 GM in normal saline 100ml IV soln 100 ML IV STA (15:03)
[2024-07-31 15:05] LABS: UA COLLECTION TYPE FOLEY CATH
[2024-07-31 15:06] LABS: BACTERIA,URINE 1+ /HPF (Neg); RBC,URINE 0-2 /HPF (0-2); SQUAMOUS EPITHELIAL CELL,UR FEW /LPF (FEW)
[2024-07-31] MEDS: oxyCODONE IR 5mg (immed. release) tablet PO ONE (15:40)
[2024-07-31] MEDS: potassium Cl 20 mEq SR tablet PO PRN (15:41)
[2024-07-31 15:55] LABS: HEMATOCRIT 24.3 % (35.0-45.0); HEMOGLOBIN 8.3 g/dl (12.0-16.0); MEAN CORPUSCULAR HEMOGLOBIN 43.4 PG (27.0-31.0); MEAN CORPUSCULAR HGB CONC 34.3 g/dL (33.0-36.5); MEAN CORPUSCULAR VOLUME 126.5 FL (78-98); MEAN PLATELET VOLUME 8.9 FL (7.4-10.4); PLATELET COUNT 153 X10'3 (140-440); RED BLOOD COUNT 1.92 X10'6 (4.20-5.60); RED CELL DISTRIBUTION WIDTH 17.1 % (11.5-14.5); WHITE BLOOD COUNT 6.5 X10'3 (4.5-11.0)
[2024-07-31 16:23] LABS: TOTAL CELLS COUNTED 100
[2024-07-31 16:24] LABS: ANISOCYTOSIS 1+; ELLIPTOCYTES FEW; PLATELET ESTIMATE NORMAL; POLYCHROMASIA FEW; TARGET CELLS FEW
[2024-07-31 16:25] LABS: NUCLEATED RED BLOOD CELLS 2 /100WBC (0-0); SMUDGE CELLS 1+
[2024-07-31] MEDS: albumin (Human) 5% 250ml 250 ML IV ONE (16:46)
[2024-07-31] MEDS: thiamine 100mg/ml 2ml inj. IV ONE (17:33)
[2024-07-31] MEDS: NORepinephrine 8mg/ 250ml NS 250 ML IV ONE (17:38)
[2024-07-31] MEDS: normal saline 1000ML IV soln IVB ONE (17:59)
[2024-07-31] MEDS: piperacillin/tazo 4.5gm/100ml 100 ML IV STA (18:00)
[2024-07-31] MEDS ORDERED: acetaminophen 325mg tablet PO PRN ×2 (19:40)
[2024-07-31] MEDS ORDERED: magnesium hydroxide 30ml (MOM) UD suspension PO PRN (19:40)
[2024-07-31] MEDS ORDERED: cefepime 1GM in D5W 50mL 50 ML IV SCH (20:00)
[2024-07-31] MEDS: hydrocortisone sod succ/PF 100mg/2ml inj. IV SCH (20:44)
[2024-07-31] MEDS: famotidine/PF 10 mg/ml inj IV SCH (20:44)
[2024-07-31] MEDS: PERFLUTREN PROTEIN-A MICROSPHR (Optison) 0.22 MG/ML 3ML VIAL IV ONE (20:48)
[2024-07-31] MEDS: vancomycin/NS 1 GM ADD-VANTAGE 250 ML IV ONE (21:53)
[2024-07-31] MEDS: thiamine 100mg/ml 2ml inj. IV SCH (21:54)
[2024-07-31 21:57] LABS: ALBUMIN 1.9 G/DL (3.4-5.0); ANION GAP 19 (8-16); BLOOD UREA NITROGEN 39 MG/DL (7-18); BUN/CREATININE RATIO 18.1 (10.0-20.0); CALCIUM 6.3 MG/DL (8.5-10.1); CHLORIDE 106 MMOL/L (99-107); CREATININE 2.16 MG/DL (0.40-0.90); GLUCOSE 69 MG/DL (70-104); SODIUM 137 MMOL/L (135-145); eCRCL 23 ML/MIN; eGFR 23 ML/MIN
[2024-07-31 22:18] LABS: POTASSIUM 2.7 MMOL/L (3.5-5.1); TOTAL CARBON DIOXIDE 12.2 MMOL/L (24-32)
[2024-07-31] MEDS: K and/or MAG REPLACEMENT MC SCH (22:35)
[2024-07-31] MEDS ORDERED: potassium Cl 20 mEq SR tablet PO PRN ×2 (22:35)
[2024-07-31] MEDS: morphine 2 MG/ML inj. syringe IV PRN (23:09)
[2024-08-01] MEDS: potassium Cl 40MEQ/1/2NS 520ml 520 ML IV PRN (00:19)
[2024-08-01] MEDS: heparin, porcine 5000 units/ml vial SQ SCH (02:20)
[2024-08-01] MEDS: sodium bicarbonate 1meq/ml inj 150 ML in dextrose 5%-water 1,000 ML IV SCH (02:21)
[2024-08-01 03:59] LABS: APTT 31 SECONDS (22-32); INR 1.2 INR; PROTHROMBIN TIME 12.3 SECONDS (9.0-12.0)
[2024-08-01 04:01] LABS: ALBUMIN 1.7 G/DL (3.4-5.0); ANION GAP 16 (8-16); BLOOD UREA NITROGEN 34 MG/DL (7-18); BUN/CREATININE RATIO 16.5 (10.0-20.0); CALCIUM 6.1 MG/DL (8.5-10.1); CHLORIDE 107 MMOL/L (99-107); CREATININE 2.06 MG/DL (0.40-0.90); GLUCOSE 183 MG/DL (70-104); MAGNESIUM 2.1 MG/DL (1.5-2.4); PHOSPHORUS 4.5 MG/DL (2.3-4.5); POTASSIUM 4.4 MMOL/L (3.5-5.1); SODIUM 135 MMOL/L (135-145); eCRCL 24 ML/MIN; eGFR 25 ML/MIN
[2024-08-01 04:14] LABS: TOTAL CARBON DIOXIDE 12.4 MMOL/L (24-32)
[2024-08-01] MEDS: fludrocortisone acetate 0.1mg tablet PO SCH (07:24)
[2024-08-01] MEDS: folic acid 1mg/0.2ml inj IV SCH (07:25)
[2024-08-01] MEDS: MEROPENEM 500MG/50ML-NS IVPB 50 ML IV SCH (07:25)
[2024-08-01] MEDS ORDERED: MEROPENEM 500MG/50ML-NS IVPB 50 ML IV SCH (08:00)
[2024-08-01] MEDS: ringers solution, lacted 1,000 ML IV ONE ×3 (09:24→10:03)
[2024-08-01] MEDS: furosemide 10 MG/1 ML 10ml inj IV ONE (11:33)
[2024-08-01] MEDS: ALPRAZolam 0.5mg tablet PO ONE (13:38)
[2024-08-01] MEDS: ipratropium/albuterol 3ml nebule NEB ONE (13:43)
[2024-08-01 13:44] VITALS: PULSE 112; RESP 20; O2SAT 98
[2024-08-01 14:19] VITALS: PULSE 112; RESP 14; O2SAT 99
[2024-08-01 14:29] LABS: ALANINE AMINOTRANSFERASE 24 U/L (12-78); ALBUMIN 1.7 G/DL (3.4-5.0); ALBUMIN/GLOBULIN RATIO 0.5 (1.1-1.5); ALKALINE PHOSPHATASE 201 IU/L (46-116); ANION GAP 13 (8-16); ASPARTATE AMINO TRANSFERASE 106 U/L (10-37); BILIRUBIN,TOTAL 0.4 MG/DL (0.1-1.0); BLOOD UREA NITROGEN 28 MG/DL (7-18); BUN/CREATININE RATIO 15.6 (10.0-20.0); CALCIUM 6.8 MG/DL (8.5-10.1); CHLORIDE 105 MMOL/L (99-107); GLUCOSE 152 MG/DL (70-104); POTASSIUM 3.5 MMOL/L (3.5-5.1); SODIUM 136 MMOL/L (135-145); TOTAL CARBON DIOXIDE 17.9 MMOL/L (24-32); TOTAL PROTEIN 5.2 G/DL (6.4-8.2); eCRCL 27 ML/MIN; eGFR 29 ML/MIN
[2024-08-01 16:47] VITALS: PULSE 102; RESP 25; O2SAT 98
[2024-08-01] MEDS: ipratropium/albuterol 3ml nebule NEB SCH (16:47)
[2024-08-01 16:55] VITALS: PULSE 102; RESP 25
[2024-08-01] MEDS: FLU VACC TS2024-25(6MOS UP)/PF 45 MCG/0.5 ML SYRINGE IMVAC ONE (17:20)
[2024-08-01 17:28] LABS: BASOPHILS % (AUTO) 0.1 % (0-1); EOSINOPHILS % (AUTO) 0 % (0-6); HEMATOCRIT 23.6 % (35.0-45.0); HEMOGLOBIN 8.1 g/dl (12.0-16.0); LYMPHOCYTES # (AUTO) 1.1 X10'3 (1.1-4.8); LYMPHOCYTES % (AUTO) 19.8 % (21-51); MEAN CORPUSCULAR HEMOGLOBIN 43.4 PG (27.0-31.0); MEAN CORPUSCULAR HGB CONC 34.4 g/dL (33.0-36.5); MEAN CORPUSCULAR VOLUME 126.3 FL (78-98); MEAN PLATELET VOLUME 8.2 FL (7.4-10.4); MONOCYTES # (AUTO) 0.5 X10'3 (0-0.9); MONOCYTES % (AUTO) 8.7 % (2-12); NEUTROPHILS % (AUTO) 71.4 % (42-75); PLATELET COUNT 133 X10'3 (140-440); RED BLOOD COUNT 1.87 X10'6 (4.20-5.60); WHITE BLOOD COUNT 5.6 X10'3 (4.5-11.0)
[2024-08-01] MEDS: pantoprazole 40MG/NS 100ML BAG 100 ML IV SCH (18:27)
[2024-08-01 19:22] LABS: OCCULT BLOOD STOOL POSITIVE (Neg)
[2024-08-01] MEDS: docusate sodium 100mg/10ml UD cup PO SCH (20:00)
[2024-08-01 20:04] LABS: OSMOLALITY 297 MOSM/K (280-300)
[2024-08-01 20:08] LABS: % IRON SATURATION 34 % (11-46); IRON 41 UG/DL (49-151); TOTAL IRON BINDING CAPACITY 122 UG/DL (259-388)
[2024-08-01 20:15] LABS: ALBUMIN 1.7 G/DL (3.4-5.0); ANION GAP 15 (8-16); BLOOD UREA NITROGEN 29 MG/DL (7-18); BUN/CREATININE RATIO 13.7 (10.0-20.0); CALCIUM 6.7 MG/DL (8.5-10.1); CHLORIDE 104 MMOL/L (99-107); CREATININE 2.11 MG/DL (0.40-0.90); GLUCOSE 223 MG/DL (70-104); PHOSPHORUS 3.7 MG/DL (2.3-4.5); SODIUM 136 MMOL/L (135-145); TOTAL CARBON DIOXIDE 17.2 MMOL/L (24-32); eCRCL 23 ML/MIN; eGFR 24 ML/MIN
[2024-08-01 20:16] VITALS: PULSE 97; RESP 18; O2SAT 88
[2024-08-01 20:21] VITALS: PULSE 101; RESP 20
[2024-08-01 20:21] LABS: POTASSIUM 2.9 MMOL/L (3.5-5.1)
[2024-08-01 21:14] LABS: FERRITIN 1050 NG/ML (8-252)
[2024-08-01] MEDS: NORepinephrine 8mg/ 250ml NS 250 ML IV SCH (21:14)
[2024-08-01 23:14] LABS: HEMATOCRIT 25.3 % (35.0-45.0); HEMOGLOBIN 8.7 g/dl (12.0-16.0); MEAN CORPUSCULAR HEMOGLOBIN 42.9 PG (27.0-31.0); MEAN CORPUSCULAR HGB CONC 34.5 g/dL (33.0-36.5); MEAN CORPUSCULAR VOLUME 124.4 FL (78-98); PLATELET COUNT 175 X10'3 (140-440); RED BLOOD COUNT 2.03 X10'6 (4.20-5.60); RED CELL DISTRIBUTION WIDTH 17.4 % (11.5-14.5); WHITE BLOOD COUNT 10.1 X10'3 (4.5-11.0)
[2024-08-02] VITALS (18 sets, daily range): PULSE 89–148; RESP 16–35; O2SAT 88–98
[2024-08-02] MEDS: furosemide 10 MG/1 ML 10ml inj IV ONE (01:30)
[2024-08-02 03:27] LABS: HEMATOCRIT 24.8 % (35.0-45.0); HEMOGLOBIN 8.4 g/dl (12.0-16.0); MEAN CORPUSCULAR HEMOGLOBIN 42.5 PG (27.0-31.0); MEAN CORPUSCULAR VOLUME 125.3 FL (78-98); MEAN PLATELET VOLUME 9.1 FL (7.4-10.4); PLATELET COUNT 189 X10'3 (140-440); RED BLOOD COUNT 1.98 X10'6 (4.20-5.60); RED CELL DISTRIBUTION WIDTH 17.6 % (11.5-14.5); WHITE BLOOD COUNT 12.6 X10'3 (4.5-11.0)
[2024-08-02 03:39] LABS: APTT 27 SECONDS (22-32); INR 1.2 INR; PROTHROMBIN TIME 12.8 SECONDS (9.0-12.0)
[2024-08-02 03:45] LABS: ALBUMIN 1.4 G/DL (3.4-5.0); ANION GAP 11 (8-16); BLOOD UREA NITROGEN 30 MG/DL (7-18); BUN/CREATININE RATIO 16.9 (10.0-20.0); CHLORIDE 103 MMOL/L (99-107); CREATININE 1.77 MG/DL (0.40-0.90); GLUCOSE 255 MG/DL (70-104); MAGNESIUM 1.5 MG/DL (1.5-2.4); PHOSPHORUS 3.7 MG/DL (2.3-4.5); POTASSIUM 3.6 MMOL/L (3.5-5.1); SODIUM 135 MMOL/L (135-145); eCRCL 28 ML/MIN; eGFR 30 ML/MIN
[2024-08-02] MEDS ORDERED: albumin (human) 25% 100ml IV 100 ML in normal saline 500ml IV soln 400 ML IV ONE (08:35)
[2024-08-02] MEDS: nicotine 21mg patch - 24 hr TD SCH (08:43)
[2024-08-02] MEDS: ringers solution, lacted 1,000 ML IV SCH (09:06)
[2024-08-02] MEDS: albumin (human) 25% 100ml IV 500 ML IV ONE (09:18)
[2024-08-02 10:25] LABS: C DIFF ANTIGEN NEGATIVE (NEGATIVE); C DIFF SPECIMEN=DIARRHEA? ACCEPTABLE; C DIFFICILE TOXINS A&B NEGATIVE (Neg)
[2024-08-02 11:26] LABS: HEMATOCRIT 23.5 % (35.0-45.0); MEAN CORPUSCULAR HEMOGLOBIN 42.5 PG (27.0-31.0); MEAN CORPUSCULAR HGB CONC 34.2 g/dL (33.0-36.5); MEAN CORPUSCULAR VOLUME 124.4 FL (78-98); PLATELET COUNT 179 X10'3 (140-440); RED BLOOD COUNT 1.89 X10'6 (4.20-5.60); RED CELL DISTRIBUTION WIDTH 17.4 % (11.5-14.5); WHITE BLOOD COUNT 18.1 X10'3 (4.5-11.0)
[2024-08-02] MEDS ORDERED: fentaNYL/PF 50MCG/1 ML 2ML syringe ONE (13:12)
[2024-08-02] MEDS ORDERED: LIDOcaine 2% Viscous 15ml cup ONE (13:13)
[2024-08-02] MEDS ORDERED: MIDAZolam 1 MG/ML 5ML VIAL ONE (13:13)
[2024-08-02] MEDS: amiodarone 200mg tablet PO ONE (13:19)
[2024-08-02] MEDS: amiodarone 150mg/dext, iso-os 100 ML IV ONE (14:19)
[2024-08-02] MEDS: amiodarone/D5 360MG/200ML BAG 200 ML IV SCH (15:11)
[2024-08-02] MEDS ORDERED: furosemide 10 MG/1 ML 10ml inj IV ONE (16:15)
[2024-08-02 16:19] LABS: ABG HCO3 18.4 mmol/L (21.0-28.0); ABG OXYGEN SATURATION 99.2 % (94.0-98.0); ABG PCO2 (T) 28.4 mmHg (32.0-45.0); ABG PO2 (T) 374.2 mmHg (83.0-108.0); ALLEN'S TEST POSITIVE; FCOHb 0.2 % (0.5-1.5); FHHb 0.8 % (0.0-5.0); FMetHb 0.3 % (0.0-1.5); FO2Hb 98.7 % (94.0-98.0); MODE MASK - BIPAP; PATIENT TEMPERATURE 36.8; RESPIRATORY RATE 12 b/min; TIDAL VOLUME 721 mL; TOTAL HEMOGLOBIN 9.3 G/dl (12.0-16.0)
[2024-08-02] MEDS: furosemide 40mg/4ml inj IV ONE (16:29)
[2024-08-02 17:47] LABS: HEMATOCRIT 25.6 % (35.0-45.0); HEMOGLOBIN 8.7 g/dl (12.0-16.0); MEAN CORPUSCULAR HEMOGLOBIN 42.3 PG (27.0-31.0); MEAN CORPUSCULAR HGB CONC 33.8 g/dL (33.0-36.5); MEAN CORPUSCULAR VOLUME 125.4 FL (78-98); MEAN PLATELET VOLUME 9.7 FL (7.4-10.4); PLATELET COUNT 171 X10'3 (140-440); RED BLOOD COUNT 2.04 X10'6 (4.20-5.60); RED CELL DISTRIBUTION WIDTH 17.1 % (11.5-14.5); WHITE BLOOD COUNT 20.3 X10'3 (4.5-11.0)
[2024-08-02 19:26] LABS: ALANINE AMINOTRANSFERASE 28 U/L (12-78); ALBUMIN 2.1 G/DL (3.4-5.0); ALBUMIN/GLOBULIN RATIO 0.6 (1.1-1.5); ALKALINE PHOSPHATASE 182 IU/L (46-116); ANION GAP 13 (8-16); ASPARTATE AMINO TRANSFERASE 104 U/L (10-37); BILIRUBIN,TOTAL 0.5 MG/DL (0.1-1.0); BLOOD UREA NITROGEN 29 MG/DL (7-18); BUN/CREATININE RATIO 14.8 (10.0-20.0); CALCIUM 7.1 MG/DL (8.5-10.1); CHLORIDE 105 MMOL/L (99-107); CREATININE 1.96 MG/DL (0.40-0.90); GLUCOSE 223 MG/DL (70-104); POTASSIUM 4.6 MMOL/L (3.5-5.1); SODIUM 136 MMOL/L (135-145); TOTAL PROTEIN 5.6 G/DL (6.4-8.2); eCRCL 25 ML/MIN; eGFR 26 ML/MIN
[2024-08-02] MEDS: LORazepam 2 mg/ml vial IV PRN (19:47)
[2024-08-02 20:10] LABS: ABG BASE EXCESS -13.3 mmol/L (-2.0-3.0); ABG OXYGEN SATURATION 99.7 % (94.0-98.0); ABG PH (T) 7.202 (7.350-7.450); ABG PO2 (T) 323.1 mmHg (83.0-108.0); ALLEN'S TEST POSITIVE; FCOHb 0.3 % (0.5-1.5); FHHb 0.3 % (0.0-5.0); FMetHb 0.1 % (0.0-1.5); FO2Hb 99.3 % (94.0-98.0); MODE MASK - BIPAP; PATIENT TEMPERATURE 36.1; TOTAL HEMOGLOBIN 9.8 G/dl (12.0-16.0)
[2024-08-02] MEDS: albumin (Human) 5% 250ml 250 ML IV ONE (22:13)
[2024-08-02 23:31] LABS: HEMATOCRIT 24.8 % (35.0-45.0); HEMOGLOBIN 8.3 g/dl (12.0-16.0); MEAN CORPUSCULAR HEMOGLOBIN 42.1 PG (27.0-31.0); MEAN CORPUSCULAR HGB CONC 33.6 g/dL (33.0-36.5); MEAN CORPUSCULAR VOLUME 125.5 FL (78-98); PLATELET COUNT 176 X10'3 (140-440); RED BLOOD COUNT 1.98 X10'6 (4.20-5.60); RED CELL DISTRIBUTION WIDTH 17.2 % (11.5-14.5)
[2024-08-02 23:35] LABS: WHITE BLOOD COUNT 27.6 X10'3 (4.5-11.0)
[2024-08-03] VITALS (11 sets, daily range): PULSE 95–145; RESP 16–28; O2SAT 91–99
[2024-08-03] MEDS: ringers solution, lacted 1,000 ML IV ONE (01:44)
[2024-08-03 03:42] LABS: ALBUMIN 2.1 G/DL (3.4-5.0); ANION GAP 11 (8-16); APTT 28 SECONDS (22-32); BLOOD UREA NITROGEN 30 MG/DL (7-18); BUN/CREATININE RATIO 15.7 (10.0-20.0); CALCIUM 7.3 MG/DL (8.5-10.1); CHLORIDE 106 MMOL/L (99-107); CREATININE 1.91 MG/DL (0.40-0.90); GLUCOSE 232 MG/DL (70-104); INR 1.3 INR; MAGNESIUM 1.1 MG/DL (1.5-2.4); PHOSPHORUS 3.6 MG/DL (2.3-4.5); POTASSIUM 3.5 MMOL/L (3.5-5.1); PROTHROMBIN TIME 13.6 SECONDS (9.0-12.0); SODIUM 141 MMOL/L (135-145); TOTAL CARBON DIOXIDE 24.4 MMOL/L (24-32); eCRCL 26 ML/MIN; eGFR 27 ML/MIN
[2024-08-03] MEDS: magnesium sulf-water 2g/50mL 50 ML IV PRN (04:23)
[2024-08-03] MEDS ORDERED: famotidine 20mg tablet PO SCH (08:00)
[2024-08-03] MEDS ORDERED: pantoprazole 40MG/NS 100ML BAG 100 ML IV SCH (08:00)
[2024-08-03] MEDS: ringers solution, lacted 1,000 ML IV SCH (08:07)
[2024-08-03] MEDS: furosemide 10 MG/1 ML 10ml inj IV ONE (09:02)
[2024-08-03] MEDS: magnesium sulf-water 2g/50mL 50 ML IV ONE (09:24)
[2024-08-03 10:20] LABS: ABG BASE EXCESS -3.2 mmol/L (-2.0-3.0); ABG HCO3 19.6 mmol/L (21.0-28.0); ABG OXYGEN SATURATION 94.3 % (94.0-98.0); ABG PCO2 (T) 26.9 mmHg (32.0-45.0); ABG PH (T) 7.479 (7.350-7.450); ABG PO2 (T) 71.9 mmHg (83.0-108.0); ALLEN'S TEST POSITIVE; FCOHb 0.2 % (0.5-1.5); FHHb 5.7 % (0.0-5.0); FMetHb 0.3 % (0.0-1.5); FO2Hb 93.8 % (94.0-98.0); MODE Bipap; PATIENT TEMPERATURE 36.5; RESPIRATORY RATE 12 b/min; TOTAL HEMOGLOBIN 9.3 G/dl (12.0-16.0)
[2024-08-03] MEDS: CefTRIAXone/D5W-Rocephin 1gm 50 ML IV SCH (10:53)
[2024-08-03] MEDS: HEPARIN DRIP-CARDIAC**PHARMACIST-TO-DOSE IV ONE (12:30)
[2024-08-03] MEDS ORDERED: bumetanide inj. 10 MG in normal saline 100ml IV soln 60 ML IV SCH (13:00)
[2024-08-03] MEDS: bumetanide inj. 10 MG in normal saline 100ml IV soln 60 ML IV SCH (13:25)
[2024-08-03] MEDS: heparin 10,000 units/1 ML INJ IV ONE (14:08)
[2024-08-03] MEDS: heparin 25,000 UNIT/250ml bag 250 ML IV PRN (14:10)
[2024-08-03 14:16] LABS: BASOPHILS % (AUTO) 0.1 % (0-1); EOSINOPHILS % (AUTO) 0 % (0-6); HEMATOCRIT 26.3 % (35.0-45.0); HEMOGLOBIN 8.8 g/dl (12.0-16.0); LYMPHOCYTES # (AUTO) 2.1 X10'3 (1.1-4.8); LYMPHOCYTES % (AUTO) 8.6 % (21-51); MEAN CORPUSCULAR HEMOGLOBIN 41.9 PG (27.0-31.0); MEAN CORPUSCULAR HGB CONC 33.5 g/dL (33.0-36.5); MEAN CORPUSCULAR VOLUME 125.3 FL (78-98); MONOCYTES # (AUTO) 1.3 X10'3 (0-0.9); MONOCYTES % (AUTO) 5.3 % (2-12); NEUTROPHILS # (AUTO) 21.5 X10'3 (1.8-7.7); PLATELET COUNT 147 X10'3 (140-440); RED CELL DISTRIBUTION WIDTH 17.1 % (11.5-14.5)
[2024-08-03 14:28] LABS: APTT 27 SECONDS (22-32)
[2024-08-03 14:46] LABS: ANISOCYTOSIS 1+; PLATELET ESTIMATE NORMAL; TOTAL CELLS COUNTED 100
[2024-08-03 14:48] LABS: POLYCHROMASIA FEW; TARGET CELLS FEW; TEAR DROP CELLS FEW; TOXIC GRANULATION 1+
[2024-08-03] MEDS: lactulose 20gm/30ml cup PO ONE (19:10)
[2024-08-03] MEDS: morphine 4 MG/ML inj SYRINge IV PRN (19:46)
[2024-08-03] MEDS: DEXMEDETOMIDINE 400MCG in NORMAL SALINE 100ml IV SCH (21:19)
[2024-08-03] MEDS: pantoprazole 40 MG vial IV SCH (21:26)
[2024-08-03] MEDS: MESSAGE TO NURSING IV ONE (23:00)
[2024-08-04] VITALS (26 sets, daily range): BP systolic 87–127; BP diastolic 48–75; PULSE 115–138; RESP 13–26; O2SAT 93–100
[2024-08-04 00:09] LABS: ABG BASE EXCESS -1.3 mmol/L (-2.0-3.0); ABG HCO3 22.1 mmol/L (21.0-28.0); ABG OXYGEN SATURATION 97.1 % (94.0-98.0); ABG PH (T) 7.468 (7.350-7.450); ABG PO2 (T) 88.3 mmHg (83.0-108.0); ALLEN'S TEST POSITIVE; FCOHb 0.1 % (0.5-1.5); FHHb 2.9 % (0.0-5.0); FLOW 6 L/min; FMetHb 0.3 % (0.0-1.5); FO2Hb 96.7 % (94.0-98.0); MODE NC; PATIENT TEMPERATURE 36.3
[2024-08-04 03:20] LABS: INR 1.4 INR; PROTHROMBIN TIME 14.2 SECONDS (9.0-12.0)
[2024-08-04 03:22] LABS: ALBUMIN 1.9 G/DL (3.4-5.0); ANION GAP 9 (8-16); BLOOD UREA NITROGEN 31 MG/DL (7-18); BUN/CREATININE RATIO 14.2 (10.0-20.0); CHLORIDE 107 MMOL/L (99-107); CREATININE 2.18 MG/DL (0.40-0.90); GLUCOSE 170 MG/DL (70-104); MAGNESIUM 1.9 MG/DL (1.5-2.4); PHOSPHORUS 3.7 MG/DL (2.3-4.5); POTASSIUM 3.5 MMOL/L (3.5-5.1); SODIUM 142 MMOL/L (135-145); TOTAL CARBON DIOXIDE 26.2 MMOL/L (24-32); eCRCL 22 ML/MIN; eGFR 23 ML/MIN
[2024-08-04] MEDS: MESSAGE TO NURSING IV ONE ×4 (03:40→23:04)
[2024-08-04] MEDS: heparin 10,000 units/1 ML INJ IV PRN (03:50)
[2024-08-04 09:55] LABS: ALBUMIN 1.9 G/DL (3.4-5.0); ANION GAP 7 (8-16); BLOOD UREA NITROGEN 31 MG/DL (7-18); BUN/CREATININE RATIO 14.6 (10.0-20.0); CALCIUM 7.9 MG/DL (8.5-10.1); CHLORIDE 107 MMOL/L (99-107); CREATININE 2.13 MG/DL (0.40-0.90); GLUCOSE 173 MG/DL (70-104); POTASSIUM 3.3 MMOL/L (3.5-5.1); SODIUM 141 MMOL/L (135-145); TOTAL CARBON DIOXIDE 26.9 MMOL/L (24-32); eCRCL 25 ML/MIN; eGFR 24 ML/MIN
[2024-08-04 09:59] LABS: APTT 53 SECONDS (22-32)
[2024-08-04] MEDS: thiamine 100mg tablet PO ONE (10:35)
[2024-08-04] MEDS ORDERED: acetaminophen 325mg/10.15ml oral unit dose solution NG PRN ×2 (12:13→12:14)
[2024-08-04] MEDS ORDERED: POTASSIUM CHLORIDE 20 MEQ/15 ML oral solution NG PRN (12:14)
[2024-08-04] MEDS ORDERED: quetiapine 100mg tablet PO ONE (12:30)
[2024-08-04] MEDS: quetiapine 100mg tablet NG SCH (13:05)
[2024-08-04] MEDS: MULTIVIT-MIN/FERROUS GLUCONATE 9 MG/15 ML LIQUID NG SCH (13:55)
[2024-08-04] MEDS: POTASSIUM CHLORIDE 20 MEQ/15 ML oral solution NG PRN (16:09)
[2024-08-04] MEDS: cyanocobalamin 500mcg tablet NG SCH (16:10)
[2024-08-04 16:46] LABS: ALBUMIN 1.6 G/DL (3.4-5.0); ANION GAP 9 (8-16); BLOOD UREA NITROGEN 32 MG/DL (7-18); BUN/CREATININE RATIO 14.3 (10.0-20.0); CALCIUM 7.5 MG/DL (8.5-10.1); CHLORIDE 106 MMOL/L (99-107); CREATININE 2.24 MG/DL (0.40-0.90); GLUCOSE 190 MG/DL (70-104); SODIUM 141 MMOL/L (135-145); TOTAL CARBON DIOXIDE 25.9 MMOL/L (24-32); eCRCL 24 ML/MIN; eGFR 23 ML/MIN
[2024-08-04 16:49] LABS: POTASSIUM 3.3 MMOL/L (3.5-5.1)
[2024-08-04 17:46] LABS: APTT 48 SECONDS (22-32)
[2024-08-04] MEDS: albuterol 2.5 MG/3 ML nebule NEB PRN (19:40)
[2024-08-04] MEDS: docusate sodium 100mg/10ml UD cup NG SCH (20:42)
[2024-08-04 21:36] LABS: ALBUMIN 1.6 G/DL (3.4-5.0); ANION GAP 9 (8-16); BLOOD UREA NITROGEN 34 MG/DL (7-18); BUN/CREATININE RATIO 15.5 (10.0-20.0); CALCIUM 7.6 MG/DL (8.5-10.1); CHLORIDE 109 MMOL/L (99-107); CREATININE 2.19 MG/DL (0.40-0.90); GLUCOSE 238 MG/DL (70-104); POTASSIUM 3.1 MMOL/L (3.5-5.1); SODIUM 142 MMOL/L (135-145); TOTAL CARBON DIOXIDE 24.4 MMOL/L (24-32); eCRCL 24 ML/MIN; eGFR 23 ML/MIN
[2024-08-04 21:38] LABS: APTT 42 SECONDS (22-32)
[2024-08-04 21:56] LABS: MAGNESIUM 1.5 MG/DL (1.5-2.4); PHOSPHORUS 2.7 MG/DL (2.3-4.5)
[2024-08-04] MEDS: potassium Cl 40MEQ/270ML bag 270 ML IV PRN (22:41)
[2024-08-05] VITALS (28 sets, daily range): BP systolic 79–105; BP diastolic 47–72; PULSE 108–144; RESP 14–33; O2SAT 87–100
[2024-08-05 03:03] LABS: BASOPHILS % (AUTO) 0.1 % (0-1); EOSINOPHILS % (AUTO) 0 % (0-6); HEMOGLOBIN 7.1 g/dl (12.0-16.0); LYMPHOCYTES # (AUTO) 1.2 X10'3 (1.1-4.8); LYMPHOCYTES % (AUTO) 8.5 % (21-51); MEAN CORPUSCULAR HEMOGLOBIN 41.6 PG (27.0-31.0); MEAN CORPUSCULAR HGB CONC 33.4 g/dL (33.0-36.5); MEAN CORPUSCULAR VOLUME 124.8 FL (78-98); MEAN PLATELET VOLUME 9.7 FL (7.4-10.4); MONOCYTES # (AUTO) 0.5 X10'3 (0-0.9); MONOCYTES % (AUTO) 3.5 % (2-12); NEUTROPHILS # (AUTO) 12.1 X10'3 (1.8-7.7); NEUTROPHILS % (AUTO) 87.9 % (42-75); PLATELET COUNT 99 X10'3 (140-440); RED CELL DISTRIBUTION WIDTH 17.2 % (11.5-14.5); WHITE BLOOD COUNT 13.8 X10'3 (4.5-11.0)
[2024-08-05 03:09] LABS: HEMATOCRIT 21.2 % (35.0-45.0)
[2024-08-05 03:13] LABS: APTT 63 SECONDS (22-32); INR 1.4 INR; PROTHROMBIN TIME 14.4 SECONDS (9.0-12.0)
[2024-08-05 03:20] LABS: ALBUMIN 1.5 G/DL (3.4-5.0); ANION GAP 10 (8-16); BLOOD UREA NITROGEN 32 MG/DL (7-18); BUN/CREATININE RATIO 13.7 (10.0-20.0); CALCIUM 7.3 MG/DL (8.5-10.1); CHLORIDE 108 MMOL/L (99-107); CREATININE 2.33 MG/DL (0.40-0.90); GLUCOSE 240 MG/DL (70-104); MAGNESIUM 1.7 MG/DL (1.5-2.4); PHOSPHORUS 1.9 MG/DL (2.3-4.5); POTASSIUM 3.5 MMOL/L (3.5-5.1); SODIUM 143 MMOL/L (135-145); TOTAL CARBON DIOXIDE 24.8 MMOL/L (24-32); eCRCL 23 ML/MIN; eGFR 22 ML/MIN
[2024-08-05 03:36] LABS: ANISOCYTOSIS 1+; PLATELET ESTIMATE DECREASED
[2024-08-05 03:37] LABS: POIKILOCYTOSIS 1+; TARGET CELLS 2+
[2024-08-05] MEDS ORDERED: sodium phosphate inj. 30 MMOL in dextrose 5%-water 250 ML IV PRN (03:40)
[2024-08-05] MEDS: MESSAGE TO NURSING IV ONE ×4 (03:59→23:20)
[2024-08-05] MEDS: sodium phosphate inj. 15 MMOL in dextrose 5%-water 250 ML IV PRN (04:09)
[2024-08-05] MEDS: thiamine 100mg tablet NG SCH (07:09)
[2024-08-05] MEDS: folic acid 1mg tablet NG SCH (07:09)
[2024-08-05] MEDS: albumin (human) 25% 100 ML IV solution IV SCH (07:15)
[2024-08-05] MEDS: COMMUNICATION ORDER 1 EA MISC MC ONE (07:20)
[2024-08-05] MEDS: amiodarone 150mg/dext, iso-os 100 ML IV ONE (08:12)
[2024-08-05] MEDS: insulin glargine (Lantus) pen - multi-dose SQ SCH (08:17)
[2024-08-05] MEDS: amiodarone/D5 360MG/200ML BAG 200 ML IV SCH (09:12)
[2024-08-05 10:33] LABS: HEMOGLOBIN 7.1 g/dl (12.0-16.0); MEAN CORPUSCULAR HEMOGLOBIN 41.2 PG (27.0-31.0); MEAN CORPUSCULAR VOLUME 124.9 FL (78-98); MEAN PLATELET VOLUME 9.9 FL (7.4-10.4); PLATELET COUNT 110 X10'3 (140-440); RED BLOOD COUNT 1.72 X10'6 (4.20-5.60); RED CELL DISTRIBUTION WIDTH 17.6 % (11.5-14.5); WHITE BLOOD COUNT 17.6 X10'3 (4.5-11.0)
[2024-08-05 10:35] LABS: HEMATOCRIT 21.5 % (35.0-45.0)
[2024-08-05 10:59] LABS: ALBUMIN 2.2 G/DL (3.4-5.0); ANION GAP 11 (8-16); BLOOD UREA NITROGEN 36 MG/DL (7-18); BUN/CREATININE RATIO 15.9 (10.0-20.0); CALCIUM 7.5 MG/DL (8.5-10.1); CHLORIDE 108 MMOL/L (99-107); CREATININE 2.27 MG/DL (0.40-0.90); GLUCOSE 289 MG/DL (70-104); SODIUM 143 MMOL/L (135-145); TOTAL CARBON DIOXIDE 23.6 MMOL/L (24-32); eCRCL 24 ML/MIN; eGFR 22 ML/MIN
[2024-08-05 11:03] LABS: POTASSIUM 2.9 MMOL/L (3.5-5.1)
[2024-08-05 17:36] LABS: ALBUMIN 2.5 G/DL (3.4-5.0); ANION GAP 13 (8-16); BLOOD UREA NITROGEN 34 MG/DL (7-18); BUN/CREATININE RATIO 15.7 (10.0-20.0); CALCIUM 7.8 MG/DL (8.5-10.1); CHLORIDE 108 MMOL/L (99-107); CREATININE 2.16 MG/DL (0.40-0.90); GLUCOSE 195 MG/DL (70-104); POTASSIUM 3.5 MMOL/L (3.5-5.1); SODIUM 145 MMOL/L (135-145); TOTAL CARBON DIOXIDE 24.5 MMOL/L (24-32); eCRCL 25 ML/MIN; eGFR 23 ML/MIN
[2024-08-05 22:35] LABS: ALBUMIN 2.7 G/DL (3.4-5.0); ANION GAP 11 (8-16); BLOOD UREA NITROGEN 33 MG/DL (7-18); BUN/CREATININE RATIO 15.3 (10.0-20.0); CALCIUM 7.8 MG/DL (8.5-10.1); CHLORIDE 108 MMOL/L (99-107); CREATININE 2.16 MG/DL (0.40-0.90); GLUCOSE 183 MG/DL (70-104); SODIUM 145 MMOL/L (135-145); TOTAL CARBON DIOXIDE 25.9 MMOL/L (24-32); eCRCL 25 ML/MIN; eGFR 23 ML/MIN
[2024-08-05 22:45] LABS: POTASSIUM 2.8 MMOL/L (3.5-5.1)
[2024-08-05 22:57] LABS: APTT 57 SECONDS (22-32)
[2024-08-05] MEDS: POTASSIUM CHLORIDE 20 MEQ/15 ML oral solution NG PRN (23:07)
[2024-08-05] MEDS: potassium Cl 20mEq/100mL bag 100 ML IV ONE (23:10)
[2024-08-06] VITALS (38 sets, daily range): BP systolic 88–116; BP diastolic 50–70; PULSE 102–129; RESP 11–23; O2SAT 87–95
[2024-08-06] MEDS: potassium Cl 20mEq/100mL bag 100 ML IV ONE (01:06)
[2024-08-06] MEDS: ondansetron/PF 4mg/2ml inj IV PRN (02:05)
[2024-08-06 04:22] LABS: BASOPHILS % (AUTO) 0.1 % (0-1); EOSINOPHILS % (AUTO) 0 % (0-6); HEMATOCRIT 22.5 % (35.0-45.0); HEMOGLOBIN 7.6 g/dl (12.0-16.0); LYMPHOCYTES # (AUTO) 1.2 X10'3 (1.1-4.8); LYMPHOCYTES % (AUTO) 11.7 % (21-51); MEAN CORPUSCULAR HEMOGLOBIN 38.2 PG (27.0-31.0); MEAN CORPUSCULAR HGB CONC 33.6 g/dL (33.0-36.5); MEAN CORPUSCULAR VOLUME 113.7 FL (78-98); MEAN PLATELET VOLUME 9.4 FL (7.4-10.4); MONOCYTES # (AUTO) 0.6 X10'3 (0-0.9); MONOCYTES % (AUTO) 5.3 % (2-12); NEUTROPHILS # (AUTO) 8.8 X10'3 (1.8-7.7); NEUTROPHILS % (AUTO) 82.9 % (42-75); PLATELET COUNT 96 X10'3 (140-440); RED BLOOD COUNT 1.98 X10'6 (4.20-5.60); WHITE BLOOD COUNT 10.6 X10'3 (4.5-11.0)
[2024-08-06 04:40] LABS: ALBUMIN 2.8 G/DL (3.4-5.0); BLOOD UREA NITROGEN 33 MG/DL (7-18); BUN/CREATININE RATIO 16.9 (10.0-20.0); CALCIUM 8.3 MG/DL (8.5-10.1); CREATININE 1.95 MG/DL (0.40-0.90); GLUCOSE 155 MG/DL (70-104); MAGNESIUM 1.3 MG/DL (1.5-2.4); PHOSPHORUS 2.4 MG/DL (2.3-4.5); PREALBUMIN 10.6 MG/DL (19-36); TOTAL CARBON DIOXIDE 26.2 MMOL/L (24-32); eCRCL 27 ML/MIN; eGFR 26 ML/MIN
[2024-08-06 04:45] LABS: ANISOCYTOSIS 2+; PLATELET ESTIMATE DECREASED; POIKILOCYTOSIS 2+; POLYCHROMASIA FEW; TARGET CELLS 2+
[2024-08-06] MEDS: magnesium sulf-water 4G/100mL 100 ML IV PRN (04:57)
[2024-08-06 05:05] LABS: ANION GAP 9 (8-16); CHLORIDE 112 MMOL/L (99-107); SODIUM 147 MMOL/L (135-145)
[2024-08-06 05:41] LABS: APTT 46 SECONDS (22-32); INR 1.4 INR; PROTHROMBIN TIME 14.1 SECONDS (9.0-12.0)
[2024-08-06] MEDS: MESSAGE TO NURSING IV ONE ×2 (10:30→18:03)
[2024-08-06] MEDS: ipratropium/albuterol 3ml nebule NEB SCH (11:08)
[2024-08-06 11:48] LABS: ALBUMIN 2.7 G/DL (3.4-5.0); ANION GAP 13 (8-16); BLOOD UREA NITROGEN 35 MG/DL (7-18); BUN/CREATININE RATIO 18.2 (10.0-20.0); CALCIUM 8.5 MG/DL (8.5-10.1); CHLORIDE 110 MMOL/L (99-107); CREATININE 1.92 MG/DL (0.40-0.90); GLUCOSE 199 MG/DL (70-104); POTASSIUM 3.5 MMOL/L (3.5-5.1); SODIUM 147 MMOL/L (135-145); TOTAL CARBON DIOXIDE 24.3 MMOL/L (24-32); eCRCL 28 ML/MIN; eGFR 27 ML/MIN
[2024-08-06] MEDS ORDERED: ipratropium/albuterol 3ml nebule IH SCH (14:00)
[2024-08-06 15:28] LABS: ALBUMIN 3.1 G/DL (3.4-5.0); ANION GAP 14 (8-16); BLOOD UREA NITROGEN 35 MG/DL (7-18); BUN/CREATININE RATIO 16.6 (10.0-20.0); CALCIUM 8.6 MG/DL (8.5-10.1); CHLORIDE 110 MMOL/L (99-107); CREATININE 2.11 MG/DL (0.40-0.90); GLUCOSE 190 MG/DL (70-104); POTASSIUM 3.2 MMOL/L (3.5-5.1); SODIUM 149 MMOL/L (135-145); TOTAL CARBON DIOXIDE 24.8 MMOL/L (24-32); eCRCL 25 ML/MIN; eGFR 24 ML/MIN
[2024-08-07] VITALS (39 sets, daily range): BP systolic 76–108; BP diastolic 47–65; PULSE 64–118; RESP 12–20; O2SAT 40–100
[2024-08-07 01:17] LABS: EOSINOPHILS % (AUTO) 0 % (0-6); HEMATOCRIT 23.4 % (35.0-45.0); HEMOGLOBIN 7.7 g/dl (12.0-16.0); LYMPHOCYTES # (AUTO) 0.9 X10'3 (1.1-4.8); MEAN CORPUSCULAR HEMOGLOBIN 37.8 PG (27.0-31.0); MONOCYTES # (AUTO) 0.7 X10'3 (0-0.9)
[2024-08-07 01:27] LABS: BASOPHILS % (AUTO) 0.1 % (0-1); LYMPHOCYTES % (AUTO) 7.5 % (21-51); MEAN CORPUSCULAR VOLUME 114.6 FL (78-98); MEAN PLATELET VOLUME 9.4 FL (7.4-10.4); MONOCYTES % (AUTO) 5.6 % (2-12); NEUTROPHILS # (AUTO) 10.6 X10'3 (1.8-7.7); NEUTROPHILS % (AUTO) 86.8 % (42-75); PLATELET COUNT 96 X10'3 (140-440); RED BLOOD COUNT 2.04 X10'6 (4.20-5.60); WHITE BLOOD COUNT 12.2 X10'3 (4.5-11.0)
[2024-08-07 01:30] LABS: ALBUMIN 2.8 G/DL (3.4-5.0); ANION GAP 10 (8-16); BLOOD UREA NITROGEN 37 MG/DL (7-18); BUN/CREATININE RATIO 18.1 (10.0-20.0); CALCIUM 8.3 MG/DL (8.5-10.1); CHLORIDE 110 MMOL/L (99-107); CREATININE 2.04 MG/DL (0.40-0.90); GLUCOSE 200 MG/DL (70-104); MAGNESIUM 2.1 MG/DL (1.5-2.4); PHOSPHORUS 2.7 MG/DL (2.3-4.5); SODIUM 147 MMOL/L (135-145); TOTAL CARBON DIOXIDE 26.6 MMOL/L (24-32); eCRCL 26 ML/MIN; eGFR 25 ML/MIN
[2024-08-07 01:31] LABS: APTT 48 SECONDS (22-32); INR 1.3 INR; PROTHROMBIN TIME 13.6 SECONDS (9.0-12.0)
[2024-08-07 01:43] LABS: NUCLEATED RED BLOOD CELLS 1 /100WBC (0-0); TOTAL CELLS COUNTED 100
[2024-08-07 01:45] LABS: ANISOCYTOSIS 3+; PLATELET ESTIMATE DECREASED; POIKILOCYTOSIS 2+; POLYCHROMASIA FEW; TARGET CELLS 1+
[2024-08-07 01:48] LABS: POTASSIUM 2.6 MMOL/L (3.5-5.1)
[2024-08-07] MEDS: MESSAGE TO NURSING IV ONE (02:15)
[2024-08-07] MEDS: INSULIN LISPRO 100 UNIT/ML INSULN.PEN MULTI-DOSE SQ SCH (07:28)
[2024-08-07] MEDS ORDERED: MVI, adult No.4 with vit. K 10 ML in dextrose 5% water 500ml 500 ML IV SCH (08:00)
[2024-08-07 09:30] LABS: ALBUMIN 2.4 G/DL (3.4-5.0); ANION GAP 13 (8-16); BLOOD UREA NITROGEN 34 MG/DL (7-18); BUN/CREATININE RATIO 16.3 (10.0-20.0); CHLORIDE 108 MMOL/L (99-107); CREATININE 2.09 MG/DL (0.40-0.90); GLUCOSE 185 MG/DL (70-104); POTASSIUM 3.5 MMOL/L (3.5-5.1); SODIUM 146 MMOL/L (135-145); TOTAL CARBON DIOXIDE 25.1 MMOL/L (24-32); eCRCL 26 ML/MIN; eGFR 24 ML/MIN
[2024-08-07 09:40] LABS: HEMATOCRIT 22.9 % (35.0-45.0); HEMOGLOBIN 7.7 g/dl (12.0-16.0); MEAN CORPUSCULAR HEMOGLOBIN 38.7 PG (27.0-31.0); MEAN CORPUSCULAR HGB CONC 33.7 g/dL (33.0-36.5); MEAN CORPUSCULAR VOLUME 114.9 FL (78-98); MEAN PLATELET VOLUME 9.3 FL (7.4-10.4); PLATELET COUNT 89 X10'3 (140-440); RED BLOOD COUNT 1.99 X10'6 (4.20-5.60); RED CELL DISTRIBUTION WIDTH 28.1 % (11.5-14.5); WHITE BLOOD COUNT 10.1 X10'3 (4.5-11.0)
[2024-08-07] MEDS ORDERED: fentaNYL/PF 50MCG/1 ML 2ML syringe IV PRN (11:20)
[2024-08-07] MEDS: fentaNYL/PF 50MCG/1 ML 2ML syringe ONE (11:25)
[2024-08-07] MEDS: FENTANYL-0.9 % NACL/PF 100 ML ONE (11:25)
[2024-08-07] MEDS: propofol 1000mg/100ml bottle 100 ML IV ONE (11:25)
[2024-08-07] MEDS: propofol 1000mg/100ml bottle 100 ML IV SCH (11:42)
[2024-08-07] MEDS: FENTANYL-0.9 % NACL/PF 100 ML IV SCH (11:42)
[2024-08-07] MEDS: fentaNYL/PF 50MCG/1 ML 2ML syringe IV ONE (11:43)
[2024-08-07 11:52] LABS: ABG BASE EXCESS -1.4 mmol/L (-2.0-3.0); ABG HCO3 23.7 mmol/L (21.0-28.0); ABG OXYGEN SATURATION 99.3 % (94.0-98.0); ABG PCO2 (T) 41.9 mmHg (32.0-45.0); ABG PH (T) 7.372 (7.350-7.450); ABG PO2 (T) 188.4 mmHg (83.0-108.0); ALLEN'S TEST POSITIVE; FCOHb 0.3 % (0.5-1.5); FHHb 0.7 % (0.0-5.0); FMetHb 0.3 % (0.0-1.5); FO2Hb 98.7 % (94.0-98.0); MODE PRVC; PATIENT TEMPERATURE 37.1; PEEP 10 cm H2O; RESPIRATORY RATE 16 b/min; TIDAL VOLUME 400 mL; TOTAL HEMOGLOBIN 9.2 G/dl (12.0-16.0)
[2024-08-07] MEDS ORDERED: rocuronium 10mg/ml inj IV ONE (13:00)
[2024-08-08] VITALS (48 sets, daily range): BP systolic 87–125; BP diastolic 47–61; PULSE 67–88; RESP 14–76; TEMP 98.7; O2SAT 91–98
[2024-08-08 02:51] LABS: ABG BASE EXCESS -1.6 mmol/L (-2.0-3.0); ABG PCO2 (T) 39.4 mmHg (32.0-45.0); ABG PH (T) 7.386 (7.350-7.450); ABG PO2 (T) 84.9 mmHg (83.0-108.0); ALLEN'S TEST POSITIVE; MODE VENT - AC; PATIENT TEMPERATURE 37.3; PEEP 10 cm H2O; RESPIRATORY RATE 16 b/min; TIDAL VOLUME 400 mL
[2024-08-08 03:08] LABS: BASOPHILS % (AUTO) 0 % (0-1); EOSINOPHILS % (AUTO) 0 % (0-6); HEMATOCRIT 25.3 % (35.0-45.0); HEMOGLOBIN 8.2 g/dl (12.0-16.0); LYMPHOCYTES # (AUTO) 0.8 X10'3 (1.1-4.8); LYMPHOCYTES % (AUTO) 5.2 % (21-51); MEAN CORPUSCULAR HEMOGLOBIN 37.6 PG (27.0-31.0); MEAN CORPUSCULAR HGB CONC 32.4 g/dL (33.0-36.5); MEAN CORPUSCULAR VOLUME 116.1 FL (78-98); MEAN PLATELET VOLUME 9.4 FL (7.4-10.4); MONOCYTES # (AUTO) 0.8 X10'3 (0-0.9); MONOCYTES % (AUTO) 5.2 % (2-12); NEUTROPHILS # (AUTO) 13.2 X10'3 (1.8-7.7); NEUTROPHILS % (AUTO) 89.6 % (42-75); PLATELET COUNT 93 X10'3 (140-440); RED BLOOD COUNT 2.18 X10'6 (4.20-5.60); RED CELL DISTRIBUTION WIDTH 28.6 % (11.5-14.5); WHITE BLOOD COUNT 14.8 X10'3 (4.5-11.0)
[2024-08-08 03:20] LABS: APTT 25 SECONDS (22-32); INR 1.2 INR; PROTHROMBIN TIME 12.6 SECONDS (9.0-12.0)
[2024-08-08 03:23] LABS: ALBUMIN 2.5 G/DL (3.4-5.0); ANION GAP 10 (8-16); BLOOD UREA NITROGEN 40 MG/DL (7-18); BUN/CREATININE RATIO 18.6 (10.0-20.0); CALCIUM 8.5 MG/DL (8.5-10.1); CHLORIDE 110 MMOL/L (99-107); CREATININE 2.15 MG/DL (0.40-0.90); GLUCOSE 219 MG/DL (70-104); PHOSPHORUS 3.6 MG/DL (2.3-4.5); SODIUM 147 MMOL/L (135-145); TOTAL CARBON DIOXIDE 27.2 MMOL/L (24-32); TRIGLYCERIDES 131 MG/DL (20-135); eCRCL 25 ML/MIN; eGFR 24 ML/MIN
[2024-08-08] MEDS: furosemide 40mg/4ml inj IV ONE (12:17)
[2024-08-08] MEDS ORDERED: epiNEPHrine 0.1mg/ml 10ml syringe ONE (14:00)
[2024-08-08] MEDS: mineral oil/petrolatum ophthal oint EACHEYE SCH (14:09)
[2024-08-08 19:09] LABS: ALANINE AMINOTRANSFERASE 26 U/L (12-78); ALBUMIN 2.4 G/DL (3.4-5.0); ALBUMIN/GLOBULIN RATIO 0.8 (1.1-1.5); ALKALINE PHOSPHATASE 126 IU/L (46-116); ANION GAP 11 (8-16); ASPARTATE AMINO TRANSFERASE 19 U/L (10-37); BILIRUBIN,TOTAL 0.4 MG/DL (0.1-1.0); BLOOD UREA NITROGEN 43 MG/DL (7-18); BUN/CREATININE RATIO 17.2 (10.0-20.0); CALCIUM 8.3 MG/DL (8.5-10.1); CHLORIDE 107 MMOL/L (99-107); GLUCOSE 210 MG/DL (70-104); POTASSIUM 3.9 MMOL/L (3.5-5.1); SODIUM 144 MMOL/L (135-145); TOTAL CARBON DIOXIDE 26.1 MMOL/L (24-32); TOTAL PROTEIN 5.3 G/DL (6.4-8.2); eCRCL 21 ML/MIN; eGFR 20 ML/MIN
[2024-08-08] MEDS: insulin regular, human U-100 10ml vial - multi-dose SQ SCH (20:40)
[2024-08-09] VITALS (41 sets, daily range): BP systolic 96–123; BP diastolic 53–67; PULSE 64–115; RESP 8–21; O2SAT 90–100
[2024-08-09 02:05] LABS: APTT 25 SECONDS (22-32); INR 1.3 INR
[2024-08-09 02:07] LABS: BASOPHILS % (AUTO) 0.1 % (0-1); EOSINOPHILS % (AUTO) 0 % (0-6); HEMATOCRIT 25.7 % (35.0-45.0); HEMOGLOBIN 8.4 g/dl (12.0-16.0); LYMPHOCYTES # (AUTO) 0.7 X10'3 (1.1-4.8); LYMPHOCYTES % (AUTO) 3.9 % (21-51); MEAN CORPUSCULAR HEMOGLOBIN 38.2 PG (27.0-31.0); MEAN CORPUSCULAR HGB CONC 32.8 g/dL (33.0-36.5); MEAN CORPUSCULAR VOLUME 116.6 FL (78-98); MEAN PLATELET VOLUME 9.8 FL (7.4-10.4); MONOCYTES # (AUTO) 0.8 X10'3 (0-0.9); MONOCYTES % (AUTO) 4.6 % (2-12); NEUTROPHILS # (AUTO) 16.4 X10'3 (1.8-7.7); NEUTROPHILS % (AUTO) 91.4 % (42-75); PLATELET COUNT 97 X10'3 (140-440); RED BLOOD COUNT 2.21 X10'6 (4.20-5.60); RED CELL DISTRIBUTION WIDTH 27.3 % (11.5-14.5)
[2024-08-09 02:10] LABS: ALBUMIN 2.5 G/DL (3.4-5.0); ANION GAP 8 (8-16); BLOOD UREA NITROGEN 43 MG/DL (7-18); BUN/CREATININE RATIO 18.1 (10.0-20.0); CALCIUM 8.8 MG/DL (8.5-10.1); CHLORIDE 110 MMOL/L (99-107); CREATININE 2.38 MG/DL (0.40-0.90); GLUCOSE 193 MG/DL (70-104); MAGNESIUM 1.8 MG/DL (1.5-2.4); PHOSPHORUS 4.1 MG/DL (2.3-4.5); POTASSIUM 3.7 MMOL/L (3.5-5.1); PREALBUMIN 15.9 MG/DL (19-36); PROTHROMBIN TIME 13.1 SECONDS (9.0-12.0); SODIUM 145 MMOL/L (135-145); eCRCL 23 ML/MIN; eGFR 21 ML/MIN
[2024-08-09 02:49] LABS: TOTAL CELLS COUNTED 100
[2024-08-09 02:50] LABS: HYPERSEGMENTED NEUTROPHILS 1+
[2024-08-09 03:57] LABS: ABG BASE EXCESS -3.4 mmol/L (-2.0-3.0); ABG HCO3 22.3 mmol/L (21.0-28.0); ABG PCO2 (T) 42.7 mmHg (32.0-45.0); ABG PH (T) 7.334 (7.350-7.450); ABG PO2 (T) 93.6 mmHg (83.0-108.0); ALLEN'S TEST Modified; FCOHb 0.1 % (0.5-1.5); FMetHb 0.3 % (0.0-1.5); FO2Hb 96.6 % (94.0-98.0); MODE PRVC; PATIENT TEMPERATURE 36.6; PEEP 10 cm H2O; RESPIRATORY RATE 16 b/min; TIDAL VOLUME 400 mL; TOTAL HEMOGLOBIN 8.3 G/dl (12.0-16.0)
[2024-08-09] MEDS ORDERED: amiodarone 200mg tablet PO SCH (10:30)
[2024-08-09] MEDS: amiodarone 200mg tablet NG SCH (19:28)
[2024-08-10] VITALS (40 sets, daily range): BP systolic 101–135; BP diastolic 53–72; PULSE 71–102; RESP 9–51; O2SAT 90–98
[2024-08-10 01:33] LABS: BASOPHILS % (AUTO) 0.1 % (0-1); EOSINOPHILS % (AUTO) 0 % (0-6); HEMATOCRIT 25.9 % (35.0-45.0); HEMOGLOBIN 8.4 g/dl (12.0-16.0); LYMPHOCYTES # (AUTO) 0.9 X10'3 (1.1-4.8); MEAN CORPUSCULAR HEMOGLOBIN 37.9 PG (27.0-31.0); MEAN CORPUSCULAR HGB CONC 32.6 g/dL (33.0-36.5); MEAN CORPUSCULAR VOLUME 116.3 FL (78-98); MEAN PLATELET VOLUME 9.8 FL (7.4-10.4); MONOCYTES # (AUTO) 0.9 X10'3 (0-0.9); MONOCYTES % (AUTO) 4.3 % (2-12); NEUTROPHILS # (AUTO) 19.7 X10'3 (1.8-7.7); NEUTROPHILS % (AUTO) 91.6 % (42-75); PLATELET COUNT 103 X10'3 (140-440); RED BLOOD COUNT 2.22 X10'6 (4.20-5.60); RED CELL DISTRIBUTION WIDTH 26.7 % (11.5-14.5); WHITE BLOOD COUNT 21.6 X10'3 (4.5-11.0)
[2024-08-10 01:44] LABS: APTT 23 SECONDS (22-32); INR 1.3 INR
[2024-08-10 02:20] LABS: ALBUMIN 1.9 G/DL (3.4-5.0); ANION GAP 10 (8-16); BLOOD UREA NITROGEN 50 MG/DL (7-18); BUN/CREATININE RATIO 17.7 (10.0-20.0); CALCIUM 8.5 MG/DL (8.5-10.1); CHLORIDE 107 MMOL/L (99-107); CREATININE 2.83 MG/DL (0.40-0.90); GLUCOSE 151 MG/DL (70-104); MAGNESIUM 1.8 MG/DL (1.5-2.4); PHOSPHORUS 3.8 MG/DL (2.3-4.5); POTASSIUM 3.3 MMOL/L (3.5-5.1); SODIUM 144 MMOL/L (135-145); TOTAL CARBON DIOXIDE 26.7 MMOL/L (24-32); eCRCL 19 ML/MIN; eGFR 17 ML/MIN
[2024-08-10 03:48] LABS: ABG BASE EXCESS -4.7 mmol/L (-2.0-3.0); ABG HCO3 19.8 mmol/L (21.0-28.0); ABG OXYGEN SATURATION 96.6 % (94.0-98.0); ABG PCO2 (T) 33.3 mmHg (32.0-45.0); ABG PH (T) 7.389 (7.350-7.450); ABG PO2 (T) 79.9 mmHg (83.0-108.0); FCOHb 0.7 % (0.5-1.5); FHHb 3.4 % (0.0-5.0); FMetHb 0.3 % (0.0-1.5); FO2Hb 95.6 % (94.0-98.0); MODE ac vc; PATIENT TEMPERATURE 36.4; PEEP 7 cm H2O; RESPIRATORY RATE 16 b/min; TIDAL VOLUME 400 mL; TOTAL HEMOGLOBIN 9.1 G/dl (12.0-16.0)
[2024-08-10] MEDS: furosemide 40mg/4ml inj IV SCH (14:25)
[2024-08-10] MEDS: polyethylene glycol 3350 17gm powd pack PO SCH (19:01)
[2024-08-11] VITALS (74 sets, daily range): BP systolic 89–128; BP diastolic 43–80; PULSE 69–116; RESP 10–25; O2SAT 86–98
[2024-08-11 02:30] LABS: APTT 21 SECONDS (22-32); INR 1.2 INR; PROTHROMBIN TIME 12.8 SECONDS (9.0-12.0)
[2024-08-11 02:34] LABS: BASOPHILS % (AUTO) 0.1 % (0-1); EOSINOPHILS % (AUTO) 0 % (0-6); HEMATOCRIT 24.9 % (35.0-45.0); HEMOGLOBIN 8.1 g/dl (12.0-16.0); LYMPHOCYTES # (AUTO) 0.8 X10'3 (1.1-4.8); LYMPHOCYTES % (AUTO) 4.2 % (21-51); MEAN CORPUSCULAR HEMOGLOBIN 37.2 PG (27.0-31.0); MEAN CORPUSCULAR HGB CONC 32.4 g/dL (33.0-36.5); MEAN CORPUSCULAR VOLUME 114.7 FL (78-98); MONOCYTES # (AUTO) 0.7 X10'3 (0-0.9); MONOCYTES % (AUTO) 3.7 % (2-12); NEUTROPHILS # (AUTO) 16.8 X10'3 (1.8-7.7); PLATELET COUNT 102 X10'3 (140-440); RED BLOOD COUNT 2.17 X10'6 (4.20-5.60); WHITE BLOOD COUNT 18.3 X10'3 (4.5-11.0)
[2024-08-11 02:41] LABS: TOTAL PROTEIN,URINE RANDOM 63.3 MG/DL
[2024-08-11 03:20] LABS: ANISOCYTOSIS 3+; MICROCYTOSIS 1+; PLATELET ESTIMATE DECREASED; POIKILOCYTOSIS 1+
[2024-08-11 03:23] LABS: HIV ANTIBODY 1&2 RAPID NON-REACTIVE (Neg)
[2024-08-11 03:38] LABS: CHLORIDE 110 MMOL/L (99-107); GLUCOSE 171 MG/DL (70-104); POTASSIUM 3.2 MMOL/L (3.5-5.1); SODIUM 146 MMOL/L (135-145)
[2024-08-11 03:39] LABS: ALBUMIN 2.2 G/DL (3.4-5.0); ANION GAP 11 (8-16); BLOOD UREA NITROGEN 61 MG/DL (7-18); BUN/CREATININE RATIO 21.4 (10.0-20.0); CREATININE 2.85 MG/DL (0.40-0.90); FREE T4 (FREE THYROXINE) 0.52 NG/DL (0.73-1.40); LACTATE DEHYDROGENASE 227 U/L (81-234); MAGNESIUM 1.8 MG/DL (1.5-2.4); PHOSPHORUS 3.1 MG/DL (2.3-4.5); THYROID STIMULATING HORMONE 1.13 ulU/ml (0.34-4.50); TOTAL CARBON DIOXIDE 25.4 MMOL/L (24-32); eCRCL 19 ML/MIN; eGFR 17 ML/MIN
[2024-08-11] MEDS: magnesium hydroxide 30ml (MOM) UD suspension NG PRN (07:26)
[2024-08-11] MEDS: acetylcysteine 200 MG/ml 4ml vial INH SCH (10:15)
[2024-08-11] MEDS: furosemide inj 100 MG in normal saline 100ml IV soln 90 ML IV SCH (12:22)
[2024-08-12] VITALS (42 sets, daily range): BP systolic 86–118; BP diastolic 44–60; PULSE 64–103; RESP 12–26; TEMP 97.8; O2SAT 84–100
[2024-08-12 03:42] LABS: ALBUMIN 2.1 G/DL (3.4-5.0); ANION GAP 12 (8-16); BLOOD UREA NITROGEN 64 MG/DL (7-18); BUN/CREATININE RATIO 19.7 (10.0-20.0); CHLORIDE 110 MMOL/L (99-107); CREATININE 3.25 MG/DL (0.40-0.90); GLUCOSE 193 MG/DL (70-104); MAGNESIUM 1.9 MG/DL (1.5-2.4); PHOSPHORUS 2.6 MG/DL (2.3-4.5); SODIUM 147 MMOL/L (135-145); TOTAL CARBON DIOXIDE 25.3 MMOL/L (24-32); eCRCL 16 ML/MIN; eGFR 15 ML/MIN
[2024-08-12 03:46] LABS: BASOPHILS % (AUTO) 0 % (0-1); EOSINOPHILS % (AUTO) 0 % (0-6); HEMATOCRIT 26.1 % (35.0-45.0); HEMOGLOBIN 8.2 g/dl (12.0-16.0); LYMPHOCYTES # (AUTO) 0.5 X10'3 (1.1-4.8); LYMPHOCYTES % (AUTO) 2.6 % (21-51); MEAN CORPUSCULAR HEMOGLOBIN 36.2 PG (27.0-31.0); MEAN CORPUSCULAR HGB CONC 31.3 g/dL (33.0-36.5); MEAN CORPUSCULAR VOLUME 115.6 FL (78-98); MEAN PLATELET VOLUME 10.1 FL (7.4-10.4); MONOCYTES # (AUTO) 0.5 X10'3 (0-0.9); MONOCYTES % (AUTO) 2.5 % (2-12); NEUTROPHILS # (AUTO) 20.1 X10'3 (1.8-7.7); NEUTROPHILS % (AUTO) 94.9 % (42-75); PLATELET COUNT 96 X10'3 (140-440); RED BLOOD COUNT 2.26 X10'6 (4.20-5.60); RED CELL DISTRIBUTION WIDTH 25.9 % (11.5-14.5); WHITE BLOOD COUNT 21.2 X10'3 (4.5-11.0)
[2024-08-12 04:16] LABS: TOTAL CELLS COUNTED 100
[2024-08-12 04:17] LABS: ANISOCYTOSIS 3+; MICROCYTOSIS 1+; PLATELET ESTIMATE DECREASED
[2024-08-12 05:53] LABS: INR 1.1 INR; PROTHROMBIN TIME 11.9 SECONDS (9.0-12.0)
[2024-08-12 06:03] LABS: APTT 20 SECONDS (22-32)
[2024-08-12] MEDS ORDERED: calcium chloride inj. 1,000 MG in normal saline 100ml IV soln 100 ML IV PRN (09:40)
[2024-08-12] MEDS ORDERED: calcium chloride inj. 10,000 MG in normal saline 500ml IV soln 400 ML IV PRN (09:40)
[2024-08-12] MEDS ORDERED: BICARB DIALYSIS 4K/3 Ca2+sol 5,000 ML HE SCH (09:40)
[2024-08-12] MEDS ORDERED: potassium Cl 40MEQ/270ML bag 270 ML IV PRN (09:40)
[2024-08-12] MEDS ORDERED: sodium phosphate inj. 30 MMOL in dextrose 5%-water 250 ML IV PRN (09:40)
[2024-08-12] MEDS: propofol 1000mg/100ml bottle 100 ML IV SCH (13:45)
[2024-08-12] MEDS: fentaNYL/PF 50MCG/1 ML 2ML syringe IV ONE (14:24)
[2024-08-12] MEDS: FENTANYL-0.9 % NACL/PF 100 ML IV SCH (14:26)
[2024-08-12] MEDS: propofol 1000mg/100ml bottle 100 ML IV ONE (14:26)
[2024-08-12 15:06] LABS: ABG HCO3 21.3 mmol/L (21.0-28.0); ABG OXYGEN SATURATION 90.1 % (94.0-98.0); ABG PCO2 (T) 38.5 mmHg (32.0-45.0); ABG PH (T) 7.358 (7.350-7.450); ABG PO2 (T) 62.4 mmHg (83.0-108.0); ALLEN'S TEST POSITIVE; FCOHb 0.5 % (0.5-1.5); FHHb 9.8 % (0.0-5.0); FMetHb 0.1 % (0.0-1.5); FO2Hb 89.6 % (94.0-98.0); MODE PRVC; PATIENT TEMPERATURE 36.6; PEEP 8 cm H2O; RESPIRATORY RATE 18 b/min; TIDAL VOLUME 350 mL; TOTAL HEMOGLOBIN 8.7 G/dl (12.0-16.0)
[2024-08-12] MEDS: BICARB DIALYSIS 4K/3 Ca2+sol 5,000 ML HE SCH (15:07)
[2024-08-12 17:24] LABS: EOSINOPHILS % (AUTO) 0 % (0-6); HEMOGLOBIN 8.3 g/dl (12.0-16.0); PLATELET COUNT 74 X10'3 (140-440)
[2024-08-12 17:26] LABS: BASOPHILS % (AUTO) 0 % (0-1); HEMATOCRIT 26.7 % (35.0-45.0); LYMPHOCYTES # (AUTO) 0.8 X10'3 (1.1-4.8); MEAN CORPUSCULAR HEMOGLOBIN 36.4 PG (27.0-31.0); MEAN CORPUSCULAR HGB CONC 31.2 g/dL (33.0-36.5); MEAN PLATELET VOLUME 9.4 FL (7.4-10.4); MONOCYTES % (AUTO) 2.7 % (2-12); NEUTROPHILS # (AUTO) 35.8 X10'3 (1.8-7.7); NEUTROPHILS % (AUTO) 95.3 % (42-75); RED BLOOD COUNT 2.28 X10'6 (4.20-5.60); RED CELL DISTRIBUTION WIDTH 26.2 % (11.5-14.5)
[2024-08-12 17:29] LABS: WHITE BLOOD COUNT 37.6 X10'3 (4.5-11.0)
[2024-08-12 17:56] LABS: ALBUMIN 1.9 G/DL (3.4-5.0); ANION GAP 10 (8-16); BLOOD UREA NITROGEN 63 MG/DL (7-18); BUN/CREATININE RATIO 20.5 (10.0-20.0); CALCIUM CVVH 8.1 MG/DL (8.5-10.1); CHLORIDE 112 MMOL/L (99-107); CREATININE 3.07 MG/DL (0.40-0.90); GLUCOSE 182 MG/DL (70-104); MAGNESIUM 1.9 MG/DL (1.5-2.4); PHOSPHORUS 2.8 MG/DL (2.3-4.5); POTASSIUM 3.5 MMOL/L (3.5-5.1); PRO BRAIN NATRIURETIC PEPTIDE 14403 PG/ML (0-125); SODIUM 146 MMOL/L (135-145); TOTAL CARBON DIOXIDE 24.3 MMOL/L (24-32); eGFR 16 ML/MIN
[2024-08-12 18:27] LABS: BASOPHILS % (AUTO) 0.1 % (0-1); EOSINOPHILS % (AUTO) 0 % (0-6); HEMATOCRIT 27.2 % (35.0-45.0); HEMOGLOBIN 8.5 g/dl (12.0-16.0); LYMPHOCYTES # (AUTO) 0.5 X10'3 (1.1-4.8); LYMPHOCYTES % (AUTO) 1.3 % (21-51); MEAN CORPUSCULAR HEMOGLOBIN 36.7 PG (27.0-31.0); MEAN CORPUSCULAR HGB CONC 31.4 g/dL (33.0-36.5); MEAN CORPUSCULAR VOLUME 116.8 FL (78-98); MEAN PLATELET VOLUME 9.3 FL (7.4-10.4); MONOCYTES # (AUTO) 0.9 X10'3 (0-0.9); MONOCYTES % (AUTO) 2.2 % (2-12); NEUTROPHILS # (AUTO) 40.4 X10'3 (1.8-7.7); NEUTROPHILS % (AUTO) 96.4 % (42-75); PLATELET COUNT 64 X10'3 (140-440); RED BLOOD COUNT 2.33 X10'6 (4.20-5.60); RED CELL DISTRIBUTION WIDTH 26.2 % (11.5-14.5)
[2024-08-12] MEDS: MEROPENEM 500MG/50ML-NS IVPB 50 ML IV SCH (18:39)
[2024-08-12 18:47] LABS: ANION GAP 9 (8-16); BLOOD UREA NITROGEN 58 MG/DL (7-18); BUN/CREATININE RATIO 19.7 (10.0-20.0); CALCIUM CVVH 8.5 MG/DL (8.5-10.1); CHLORIDE 111 MMOL/L (99-107); CREATININE 2.95 MG/DL (0.40-0.90); GLUCOSE 192 MG/DL (70-104); PHOSPHORUS 2.9 MG/DL (2.3-4.5); POTASSIUM 3.6 MMOL/L (3.5-5.1); SODIUM 145 MMOL/L (135-145); TOTAL CARBON DIOXIDE 24.8 MMOL/L (24-32); eGFR 16 ML/MIN
[2024-08-12] MEDS: micafungin inj 100 MG in normal saline 100ml IV soln 100 ML IV SCH (19:20)
[2024-08-12] MEDS: VANCOMYCIN/WATER FOR INJ (PEG) 1.5GM/300 ML IVPB IV ONE (19:20)
[2024-08-12 19:32] LABS: ANION GAP 8 (8-16); BLOOD UREA NITROGEN 57 MG/DL (7-18); BUN/CREATININE RATIO 21.1 (10.0-20.0); CALCIUM CVVH 8.8 MG/DL (8.5-10.1); CHLORIDE 113 MMOL/L (99-107); GLUCOSE 183 MG/DL (70-104); MAGNESIUM 1.7 MG/DL (1.5-2.4); PHOSPHORUS 2.9 MG/DL (2.3-4.5); POTASSIUM 3.7 MMOL/L (3.5-5.1); SODIUM 148 MMOL/L (135-145); TOTAL CARBON DIOXIDE 27.2 MMOL/L (24-32); eGFR 18 ML/MIN
[2024-08-12 19:36] LABS: BASOPHILS # (AUTO) 0.1 X10'3 (0-0.2); BASOPHILS % (AUTO) 0.2 % (0-1); EOSINOPHILS % (AUTO) 0 % (0-6); HEMATOCRIT 27.3 % (35.0-45.0); HEMOGLOBIN 8.6 g/dl (12.0-16.0); LYMPHOCYTES # (AUTO) 0.7 X10'3 (1.1-4.8); LYMPHOCYTES % (AUTO) 1.6 % (21-51); MEAN CORPUSCULAR HEMOGLOBIN 36.5 PG (27.0-31.0); MEAN CORPUSCULAR HGB CONC 31.4 g/dL (33.0-36.5); MEAN CORPUSCULAR VOLUME 116.3 FL (78-98); MONOCYTES # (AUTO) 0.9 X10'3 (0-0.9); NEUTROPHILS # (AUTO) 42.6 X10'3 (1.8-7.7); NEUTROPHILS % (AUTO) 96.2 % (42-75); PLATELET COUNT 67 X10'3 (140-440); RED BLOOD COUNT 2.35 X10'6 (4.20-5.60); RED CELL DISTRIBUTION WIDTH 25.9 % (11.5-14.5)
[2024-08-12 19:39] LABS: WHITE BLOOD COUNT 44.3 X10'3 (4.5-11.0)
[2024-08-12 20:27] LABS: BASOPHILS % (AUTO) 0 % (0-1); EOSINOPHILS % (AUTO) 0 % (0-6); HEMOGLOBIN 8.6 g/dl (12.0-16.0); LYMPHOCYTES # (AUTO) 0.8 X10'3 (1.1-4.8); LYMPHOCYTES % (AUTO) 1.7 % (21-51); MEAN CORPUSCULAR HEMOGLOBIN 36.5 PG (27.0-31.0); MEAN CORPUSCULAR HGB CONC 31.3 g/dL (33.0-36.5)
[2024-08-12 20:29] LABS: HEMATOCRIT 27.5 % (35.0-45.0); MEAN CORPUSCULAR VOLUME 116.4 FL (78-98); MEAN PLATELET VOLUME 8.3 FL (7.4-10.4); MONOCYTES % (AUTO) 2.1 % (2-12); NEUTROPHILS # (AUTO) 43.6 X10'3 (1.8-7.7); NEUTROPHILS % (AUTO) 96.2 % (42-75); PLATELET COUNT 78 X10'3 (140-440); RED BLOOD COUNT 2.36 X10'6 (4.20-5.60)
[2024-08-12 20:36] LABS: WHITE BLOOD COUNT 45.4 X10'3 (4.5-11.0)
[2024-08-12 21:13] LABS: ANION GAP 10 (8-16); BLOOD UREA NITROGEN 56 MG/DL (7-18); BUN/CREATININE RATIO 21.7 (10.0-20.0); CALCIUM CVVH 8.9 MG/DL (8.5-10.1); CHLORIDE 113 MMOL/L (99-107); CREATININE 2.58 MG/DL (0.40-0.90); GLUCOSE 186 MG/DL (70-104); MAGNESIUM 1.7 MG/DL (1.5-2.4); PHOSPHORUS 2.8 MG/DL (2.3-4.5); POTASSIUM 3.8 MMOL/L (3.5-5.1); SODIUM 148 MMOL/L (135-145); TOTAL CARBON DIOXIDE 24.7 MMOL/L (24-32); eGFR 19 ML/MIN
[2024-08-12] MEDS: magnesium sulf-water 2g/50mL 50 ML IV PRN (21:20)
[2024-08-13] VITALS (53 sets, daily range): BP systolic 90–130; BP diastolic 40–56; PULSE 68–96; RESP 15–24; TEMP 97.4–98; O2SAT 94–100
[2024-08-13 02:27] LABS: BASOPHILS # (AUTO) 0.1 X10'3 (0-0.2); BASOPHILS % (AUTO) 0.2 % (0-1); EOSINOPHILS % (AUTO) 0 % (0-6); HEMATOCRIT 27.2 % (35.0-45.0); HEMOGLOBIN 8.5 g/dl (12.0-16.0); LYMPHOCYTES # (AUTO) 0.8 X10'3 (1.1-4.8); LYMPHOCYTES % (AUTO) 1.7 % (21-51); MEAN CORPUSCULAR HEMOGLOBIN 36.9 PG (27.0-31.0); MEAN CORPUSCULAR HGB CONC 31.2 g/dL (33.0-36.5); MEAN CORPUSCULAR VOLUME 118.2 FL (78-98); MEAN PLATELET VOLUME 8.9 FL (7.4-10.4); MONOCYTES # (AUTO) 1.1 X10'3 (0-0.9); MONOCYTES % (AUTO) 2.1 % (2-12); NEUTROPHILS # (AUTO) 47.6 X10'3 (1.8-7.7); RED CELL DISTRIBUTION WIDTH 26.2 % (11.5-14.5)
[2024-08-13 02:37] LABS: ANION GAP 7 (8-16); BLOOD UREA NITROGEN 48 MG/DL (7-18); BUN/CREATININE RATIO 20.6 (10.0-20.0); CHLORIDE 111 MMOL/L (99-107); CREATININE 2.33 MG/DL (0.40-0.90); GLUCOSE 178 MG/DL (70-104); POTASSIUM 3.8 MMOL/L (3.5-5.1); SODIUM 146 MMOL/L (135-145); TOTAL CARBON DIOXIDE 27.7 MMOL/L (24-32)
[2024-08-13 02:38] LABS: CALCIUM 8.9 MG/DL (8.5-10.1); CALCIUM CVVH 8.9 MG/DL (8.5-10.1); MAGNESIUM 2.1 MG/DL (1.5-2.4); PHOSPHORUS 2.9 MG/DL (2.3-4.5); PREALBUMIN 16.7 MG/DL (19-36); eCRCL 23 ML/MIN; eGFR 22 ML/MIN
[2024-08-13 02:39] LABS: APTT 25 SECONDS (22-32); INR 1.1 INR; PROTHROMBIN TIME 11.7 SECONDS (9.0-12.0)
[2024-08-13 03:02] LABS: PLATELET ESTIMATE DECREASED; TOTAL CELLS COUNTED 100
[2024-08-13 03:04] LABS: PLATELET COUNT 36 X10'3 (140-440)
[2024-08-13 03:05] LABS: WHITE BLOOD COUNT 49.6 X10'3 (4.5-11.0)
[2024-08-13 03:07] LABS: ABG BASE EXCESS -9.4 mmol/L (-2.0-3.0); ABG HCO3 17.9 mmol/L (21.0-28.0); ABG OXYGEN SATURATION 95.7 % (94.0-98.0); ABG PCO2 (T) 45.3 mmHg (32.0-45.0); ABG PH (T) 7.214 (7.350-7.450); ABG PO2 (T) 90.7 mmHg (83.0-108.0); ALLEN'S TEST Modified; FCOHb 0.3 % (0.5-1.5); FHHb 4.3 % (0.0-5.0); FMetHb 0.3 % (0.0-1.5); FO2Hb 95.1 % (94.0-98.0); MODE prvc; PATIENT TEMPERATURE 36.9; PEEP 8 cm H2O; RESPIRATORY RATE 16 b/min; TIDAL VOLUME 350 mL; TOTAL HEMOGLOBIN 8.9 G/dl (12.0-16.0)
[2024-08-13 08:09] LABS: ALBUMIN 2.2 G/DL (3.4-5.0); ANION GAP 9 (8-16); BLOOD UREA NITROGEN 41 MG/DL (7-18); BUN/CREATININE RATIO 18.6 (10.0-20.0); CALCIUM CVVH 8.9 MG/DL (8.5-10.1); CHLORIDE 107 MMOL/L (99-107); CREATININE 2.21 MG/DL (0.40-0.90); GLUCOSE 160 MG/DL (70-104); MAGNESIUM 1.8 MG/DL (1.5-2.4); PHOSPHORUS 2.8 MG/DL (2.3-4.5); POTASSIUM 4.1 MMOL/L (3.5-5.1); SODIUM 142 MMOL/L (135-145); TOTAL CARBON DIOXIDE 25.8 MMOL/L (24-32); eGFR 23 ML/MIN
[2024-08-13 08:32] LABS: BASOPHILS % (AUTO) 0.1 % (0-1); EOSINOPHILS % (AUTO) 0 % (0-6); HEMATOCRIT 26.9 % (35.0-45.0); HEMOGLOBIN 8.5 g/dl (12.0-16.0); LYMPHOCYTES # (AUTO) 1.4 X10'3 (1.1-4.8); LYMPHOCYTES % (AUTO) 2.6 % (21-51); MEAN CORPUSCULAR HEMOGLOBIN 37.1 PG (27.0-31.0); MEAN CORPUSCULAR HGB CONC 31.5 g/dL (33.0-36.5); MEAN CORPUSCULAR VOLUME 117.5 FL (78-98); MEAN PLATELET VOLUME 7.2 FL (7.4-10.4); MONOCYTES # (AUTO) 1.3 X10'3 (0-0.9); MONOCYTES % (AUTO) 2.4 % (2-12); NEUTROPHILS # (AUTO) 51.4 X10'3 (1.8-7.7); NEUTROPHILS % (AUTO) 94.9 % (42-75); PLATELET COUNT 94 X10'3 (140-440); RED BLOOD COUNT 2.29 X10'6 (4.20-5.60); RED CELL DISTRIBUTION WIDTH 25.8 % (11.5-14.5)
[2024-08-13 08:38] LABS: WHITE BLOOD COUNT 54.2 X10'3 (4.5-11.0)
[2024-08-13] MEDS ORDERED: calcium chloride inj. 10,000 MG in normal saline 500ml IV soln 400 ML IV PRN (09:00)
[2024-08-13] MEDS ORDERED: citrate dextrose 1000ml IV sol 1,000 ML IV PRN (09:00)
[2024-08-13] MEDS: Duosol 4k/NO Calcium 5,000 ML HE SCH (09:00)
[2024-08-13 09:55] LABS: ANISOCYTOSIS 3+; PLATELET ESTIMATE DECREASED; TOTAL CELLS COUNTED 100
[2024-08-13 09:56] LABS: POLYCHROMASIA 1+; STOMATOCYTES 1+
[2024-08-13] MEDS: HEPARIN DRIP-CARDIAC**PHARMACIST-TO-DOSE IV ONE (10:50)
[2024-08-13] MEDS: MEROPENEM 500MG/50ML-NS IVPB 50 ML IV SCH ×2 (10:50→20:00)
[2024-08-13] MEDS ORDERED: heparin 10,000 units/1 ML INJ IV PRN ×2 (10:55→11:00)
[2024-08-13] MEDS ORDERED: heparin 25,000 UNIT/250ml bag 250 ML IV PRN (10:55)
[2024-08-13] MEDS: heparin 10,000 units/1 ML INJ IV ONE (11:00)
[2024-08-13 11:11] LABS: ANTISTREPTOLYSIN O AB <20.0 IU/mL (0.0-200.0); COMPLEMENT C3, SERUM 88 mg/dL (82-167); COMPLEMENT C4, SERUM 24 mg/dL (12-38)
[2024-08-13] MEDS: heparin 25,000 UNIT/250ml bag 250 ML IV PRN (13:11)
[2024-08-13] MEDS: albumin (human) 25% 100 ML IV solution IV SCH (13:16)
[2024-08-13] MEDS: fludrocortisone acetate 0.1mg tablet PO SCH (13:16)
[2024-08-13] MEDS: mineral oil/petrolatum ophthal oint EACHEYE SCH (14:00)
[2024-08-13 14:25] LABS: BASOPHILS % (AUTO) 0 % (0-1); EOSINOPHILS % (AUTO) 0 % (0-6); HEMATOCRIT 24.2 % (35.0-45.0); HEMOGLOBIN 7.5 g/dl (12.0-16.0); LYMPHOCYTES # (AUTO) 1.8 X10'3 (1.1-4.8); MEAN CORPUSCULAR HEMOGLOBIN 36.3 PG (27.0-31.0); MEAN CORPUSCULAR HGB CONC 30.9 g/dL (33.0-36.5); MEAN CORPUSCULAR VOLUME 117.2 FL (78-98); MEAN PLATELET VOLUME 7.2 FL (7.4-10.4); MONOCYTES # (AUTO) 0.9 X10'3 (0-0.9); RED BLOOD COUNT 2.07 X10'6 (4.20-5.60)
[2024-08-13 14:45] LABS: PLATELET COUNT 45 X10'3 (140-440); WHITE BLOOD COUNT 45.8 X10'3 (4.5-11.0)
[2024-08-13 15:09] LABS: ALBUMIN 3.1 G/DL (3.4-5.0); ANION GAP 9 (8-16); BLOOD UREA NITROGEN 36 MG/DL (7-18); CALCIUM CVVH 8.6 MG/DL (8.5-10.1); CHLORIDE 106 MMOL/L (99-107); CREATININE 1.89 MG/DL (0.40-0.90); GLUCOSE 149 MG/DL (70-104); MAGNESIUM 1.8 MG/DL (1.5-2.4); PHOSPHORUS 2.7 MG/DL (2.3-4.5); POTASSIUM 3.9 MMOL/L (3.5-5.1); SODIUM 140 MMOL/L (135-145); TOTAL CARBON DIOXIDE 25.3 MMOL/L (24-32); eGFR 27 ML/MIN
[2024-08-13 15:13] LABS: A/G RATIO 0.9 (0.7-1.7); ALBUMIN 2.2 g/dL (2.9-4.4); ALPHA-1-GLOBULIN 0.3 g/dL (0.0-0.4); ALPHA-2-GLOBULIN 0.6 g/dL (0.4-1.0); BETA GLOBULIN 0.8 g/dL (0.7-1.3); GAMMA GLOBULIN 0.8 g/dL (0.4-1.8); GLOBULIN, TOTAL 2.5 g/dL (2.2-3.9); M-SPIKE Not Observed g/dL (Not Observed); PROTEIN, TOTAL, SERUM 4.7 g/dL (6.0-8.5)
[2024-08-13] MEDS: vancomycin/NS 1 GM ADD-VANTAGE 250 ML IV SCH (15:24)
[2024-08-13 20:06] LABS: BASOPHILS % (AUTO) 0.1 % (0-1); EOSINOPHILS % (AUTO) 0 % (0-6); LYMPHOCYTES # (AUTO) 1.7 X10'3 (1.1-4.8); MEAN CORPUSCULAR HEMOGLOBIN 36.1 PG (27.0-31.0); MEAN CORPUSCULAR VOLUME 116.6 FL (78-98); MEAN PLATELET VOLUME 7.4 FL (7.4-10.4); MONOCYTES # (AUTO) 0.7 X10'3 (0-0.9); NEUTROPHILS # (AUTO) 32.6 X10'3 (1.8-7.7); NEUTROPHILS % (AUTO) 92.9 % (42-75); RED BLOOD COUNT 1.83 X10'6 (4.20-5.60); RED CELL DISTRIBUTION WIDTH 25.4 % (11.5-14.5)
[2024-08-13 20:13] LABS: HEMATOCRIT 21.4 % (35.0-45.0); HEMOGLOBIN 6.6 g/dl (12.0-16.0); PLATELET COUNT 26 X10'3 (140-440); WHITE BLOOD COUNT 35.1 X10'3 (4.5-11.0)
[2024-08-13 20:21] LABS: ALBUMIN 3.1 G/DL (3.4-5.0); ANION GAP 7 (8-16); BLOOD UREA NITROGEN 31 MG/DL (7-18); BUN/CREATININE RATIO 20.3 (10.0-20.0); CALCIUM CVVH 9.4 MG/DL (8.5-10.1); CHLORIDE 109 MMOL/L (99-107); CREATININE 1.53 MG/DL (0.40-0.90); GLUCOSE 129 MG/DL (70-104); MAGNESIUM 1.7 MG/DL (1.5-2.4); PHOSPHORUS 2.5 MG/DL (2.3-4.5); POTASSIUM 3.9 MMOL/L (3.5-5.1); SODIUM 144 MMOL/L (135-145); TOTAL CARBON DIOXIDE 28.3 MMOL/L (24-32); eGFR 35 ML/MIN
[2024-08-14] VITALS (53 sets, daily range): BP systolic 94–133; BP diastolic 40–68; PULSE 70–95; RESP 17–24; TEMP 97.6–98.9; O2SAT 90–100
[2024-08-14 02:28] LABS: BASOPHILS % (AUTO) 0.1 % (0-1); EOSINOPHILS % (AUTO) 0 % (0-6); HEMATOCRIT 23.4 % (35.0-45.0); HEMOGLOBIN 7.5 g/dl (12.0-16.0); LYMPHOCYTES # (AUTO) 1.1 X10'3 (1.1-4.8); LYMPHOCYTES % (AUTO) 3.8 % (21-51); MEAN CORPUSCULAR HEMOGLOBIN 35.6 PG (27.0-31.0); MEAN CORPUSCULAR HGB CONC 31.9 g/dL (33.0-36.5); MEAN CORPUSCULAR VOLUME 111.4 FL (78-98); MEAN PLATELET VOLUME 7.6 FL (7.4-10.4); MONOCYTES # (AUTO) 0.6 X10'3 (0-0.9); MONOCYTES % (AUTO) 2.2 % (2-12); NEUTROPHILS % (AUTO) 93.9 % (42-75); RED CELL DISTRIBUTION WIDTH 26.3 % (11.5-14.5)
[2024-08-14 02:43] LABS: INR 1.1 INR; PROTHROMBIN TIME 11.8 SECONDS (9.0-12.0)
[2024-08-14 02:45] LABS: ALANINE AMINOTRANSFERASE 33 U/L (12-78); ALBUMIN 3.2 G/DL (3.4-5.0); ALBUMIN/GLOBULIN RATIO 1.3 (1.1-1.5); ALKALINE PHOSPHATASE 113 IU/L (46-116); ANION GAP 8 (8-16); ASPARTATE AMINO TRANSFERASE 19 U/L (10-37); BILIRUBIN,TOTAL 0.7 MG/DL (0.1-1.0); BLOOD UREA NITROGEN 26 MG/DL (7-18); BUN/CREATININE RATIO 19.1 (10.0-20.0); CALCIUM 9.5 MG/DL (8.5-10.1); CALCIUM CVVH 9.5 MG/DL (8.5-10.1); CHLORIDE 107 MMOL/L (99-107); CREATININE 1.36 MG/DL (0.40-0.90); GLUCOSE 130 MG/DL (70-104); POTASSIUM 3.9 MMOL/L (3.5-5.1); SODIUM 143 MMOL/L (135-145); TOTAL PROTEIN 5.7 G/DL (6.4-8.2); eCRCL 39 ML/MIN; eGFR 40 ML/MIN
[2024-08-14 02:46] LABS: MAGNESIUM 1.8 MG/DL (1.5-2.4); PHOSPHORUS 2.4 MG/DL (2.3-4.5); PLATELET COUNT 16 X10'3 (140-440); TRIGLYCERIDES 96 MG/DL (20-135); WHITE BLOOD COUNT 27.7 X10'3 (4.5-11.0)
[2024-08-14 02:58] LABS: TOTAL CELLS COUNTED 100
[2024-08-14] MEDS: COMMUNICATION ORDER 1 EA MISC MC ONE (03:19)
[2024-08-14 03:35] LABS: ABG BASE EXCESS -2.9 mmol/L (-2.0-3.0); ABG HCO3 22.2 mmol/L (21.0-28.0); ABG OXYGEN SATURATION 95.8 % (94.0-98.0); ABG PCO2 (T) 38.9 mmHg (32.0-45.0); ABG PH (T) 7.373 (7.350-7.450); ABG PO2 (T) 76.9 mmHg (83.0-108.0); ALLEN'S TEST Modified; FCOHb 0.7 % (0.5-1.5); FHHb 4.2 % (0.0-5.0); FMetHb 0.3 % (0.0-1.5); FO2Hb 94.8 % (94.0-98.0); MODE prvc; PATIENT TEMPERATURE 36.8; PEEP 8 cm H2O; RESPIRATORY RATE 20 b/min; TIDAL VOLUME 350 mL; TOTAL HEMOGLOBIN 8.1 G/dl (12.0-16.0)
[2024-08-14 05:33] LABS: HBSAG SCREEN Negative (Negative)
[2024-08-14 09:37] LABS: BASOPHILS % (AUTO) 0.1 % (0-1); EOSINOPHILS # (AUTO) 0.1 X10'3 (0-0.9); LYMPHOCYTES # (AUTO) 1.4 X10'3 (1.1-4.8); MEAN CORPUSCULAR VOLUME 111.8 FL (78-98); WHITE BLOOD COUNT 23.9 X10'3 (4.5-11.0)
[2024-08-14 09:38] LABS: EOSINOPHILS % (AUTO) 0.3 % (0-6); LYMPHOCYTES % (AUTO) 5.8 % (21-51); MEAN CORPUSCULAR HGB CONC 32.2 g/dL (33.0-36.5); MEAN PLATELET VOLUME 7.1 FL (7.4-10.4); MONOCYTES # (AUTO) 0.7 X10'3 (0-0.9); NEUTROPHILS # (AUTO) 21.7 X10'3 (1.8-7.7); NEUTROPHILS % (AUTO) 90.8 % (42-75); RED BLOOD COUNT 1.87 X10'6 (4.20-5.60); RED CELL DISTRIBUTION WIDTH 26.5 % (11.5-14.5)
[2024-08-14 09:49] LABS: C DIFF ANTIGEN NEGATIVE (NEGATIVE); C DIFF SPECIMEN=DIARRHEA? ACCEPTABLE; C DIFFICILE TOXINS A&B NEGATIVE (Neg)
[2024-08-14 09:54] LABS: ANION GAP 8 (8-16); BLOOD UREA NITROGEN 22 MG/DL (7-18); BUN/CREATININE RATIO 17.9 (10.0-20.0); CALCIUM CVVH 9.6 MG/DL (8.5-10.1); CHLORIDE 106 MMOL/L (99-107); CREATININE 1.23 MG/DL (0.40-0.90); GLUCOSE 147 MG/DL (70-104); MAGNESIUM 1.7 MG/DL (1.5-2.4); PHOSPHORUS 1.8 MG/DL (2.3-4.5); POTASSIUM 3.7 MMOL/L (3.5-5.1); SODIUM 142 MMOL/L (135-145); TOTAL CARBON DIOXIDE 28.2 MMOL/L (24-32); eGFR 45 ML/MIN
[2024-08-14 09:57] LABS: HEMATOCRIT 20.9 % (35.0-45.0); HEMOGLOBIN 6.7 g/dl (12.0-16.0)
[2024-08-14 09:58] LABS: PLATELET COUNT 15 X10'3 (140-440)
[2024-08-14 11:10] LABS: ANTINUCLEAR ANTIBODIES Negative (Negative)
[2024-08-14] MEDS: MESSAGE TO NURSING IV ONE (11:42)
[2024-08-14 12:12] LABS: PLATELET COUNT 30 X10'3 (140-440)
[2024-08-14 12:47] LABS: APTT 25 SECONDS (22-32); D-DIMER 8.41 MG/L FEU (0-0.50); FIBRINOGEN 217 MG/DL (177-424); INR 1.1 INR; PROTHROMBIN TIME 11.9 SECONDS (9.0-12.0)
[2024-08-14 16:22] LABS: BASOPHILS % (AUTO) 0.1 % (0-1); EOSINOPHILS % (AUTO) 0 % (0-6); LYMPHOCYTES # (AUTO) 0.8 X10'3 (1.1-4.8); MEAN CORPUSCULAR HEMOGLOBIN 36.1 PG (27.0-31.0); MEAN CORPUSCULAR HGB CONC 32.3 g/dL (33.0-36.5); MEAN CORPUSCULAR VOLUME 111.6 FL (78-98); MONOCYTES # (AUTO) 0.4 X10'3 (0-0.9); MONOCYTES % (AUTO) 2.1 % (2-12); NEUTROPHILS # (AUTO) 18.5 X10'3 (1.8-7.7); NEUTROPHILS % (AUTO) 93.8 % (42-75); RED BLOOD COUNT 1.74 X10'6 (4.20-5.60); RED CELL DISTRIBUTION WIDTH 26.2 % (11.5-14.5); WHITE BLOOD COUNT 19.8 X10'3 (4.5-11.0)
[2024-08-14 16:30] LABS: HEMATOCRIT 19.4 % (35.0-45.0); HEMOGLOBIN 6.3 g/dl (12.0-16.0)
[2024-08-14 16:31] LABS: PLATELET COUNT 22 X10'3 (140-440)
[2024-08-14 16:47] LABS: ALBUMIN 4.3 G/DL (3.4-5.0); ANION GAP 10 (8-16); BLOOD UREA NITROGEN 18 MG/DL (7-18); BUN/CREATININE RATIO 15.4 (10.0-20.0); CALCIUM CVVH 9.6 MG/DL (8.5-10.1); CHLORIDE 103 MMOL/L (99-107); CREATININE 1.17 MG/DL (0.40-0.90); GLUCOSE 144 MG/DL (70-104); MAGNESIUM 1.7 MG/DL (1.5-2.4); PHOSPHORUS 2.6 MG/DL (2.3-4.5); POTASSIUM 3.6 MMOL/L (3.5-5.1); SODIUM 139 MMOL/L (135-145); TOTAL CARBON DIOXIDE 26.2 MMOL/L (24-32); eGFR 48 ML/MIN
[2024-08-14] MEDS: meropenem inj 500 MG in normal saline 100ml IV soln 100 ML IV SCH (17:12)
[2024-08-14] MEDS ORDERED: MEROPENEM 1GM/NS 50ML IVPB IV SCH (20:00)
[2024-08-14] MEDS: polyethylene glycol 3350 17gm powd pack NG SCH (20:34)
[2024-08-14 22:52] LABS: EOSINOPHILS % (AUTO) 0.1 % (0-6); HEMATOCRIT 27.6 % (35.0-45.0); MEAN CORPUSCULAR HGB CONC 32.6 g/dL (33.0-36.5); MEAN PLATELET VOLUME 7.2 FL (7.4-10.4); MONOCYTES # (AUTO) 0.5 X10'3 (0-0.9); MONOCYTES % (AUTO) 2.4 % (2-12)
[2024-08-14 22:54] LABS: BASOPHILS # (AUTO) 0.1 X10'3 (0-0.2); BASOPHILS % (AUTO) 0.3 % (0-1); LYMPHOCYTES % (AUTO) 5.5 % (21-51); MEAN CORPUSCULAR HEMOGLOBIN 32.6 PG (27.0-31.0); MEAN CORPUSCULAR VOLUME 100.1 FL (78-98); NEUTROPHILS # (AUTO) 17.2 X10'3 (1.8-7.7); NEUTROPHILS % (AUTO) 91.7 % (42-75); RED BLOOD COUNT 2.76 X10'6 (4.20-5.60); RED CELL DISTRIBUTION WIDTH 28.1 % (11.5-14.5); WHITE BLOOD COUNT 18.8 X10'3 (4.5-11.0)
[2024-08-14 22:57] LABS: PLATELET COUNT 14 X10'3 (140-440)
[2024-08-14 23:02] LABS: ALBUMIN 3.8 G/DL (3.4-5.0); ANION GAP 8 (8-16); BLOOD UREA NITROGEN 17 MG/DL (7-18); BUN/CREATININE RATIO 14.4 (10.0-20.0); CALCIUM CVVH 9.5 MG/DL (8.5-10.1); CHLORIDE 105 MMOL/L (99-107); CREATININE 1.18 MG/DL (0.40-0.90); GLUCOSE 154 MG/DL (70-104); MAGNESIUM 1.7 MG/DL (1.5-2.4); PHOSPHORUS 1.9 MG/DL (2.3-4.5); POTASSIUM 3.5 MMOL/L (3.5-5.1); SODIUM 139 MMOL/L (135-145); TOTAL CARBON DIOXIDE 26.3 MMOL/L (24-32); eGFR 47 ML/MIN
[2024-08-15] VITALS (51 sets, daily range): BP systolic 94–143; BP diastolic 41–72; PULSE 69–100; RESP 18–23; TEMP 97–99.3; O2SAT 92–99
[2024-08-15] MEDS: MEROPENEM 500MG/50ML-NS IVPB 50 ML IV SCH (00:02)
[2024-08-15 03:49] LABS: ABG BASE EXCESS -0.1 mmol/L (-2.0-3.0); ABG HCO3 23.7 mmol/L (21.0-28.0); ABG PCO2 (T) 34.6 mmHg (32.0-45.0); ABG PH (T) 7.452 (7.350-7.450); ALLEN'S TEST Modified; FHHb 5.9 % (0.0-5.0); FMetHb 0.3 % (0.0-1.5); FO2Hb 92.8 % (94.0-98.0); MODE prvc; PATIENT TEMPERATURE 36.4; PEEP 8 cm H2O; RESPIRATORY RATE 20 b/min; TIDAL VOLUME 350 mL; TOTAL HEMOGLOBIN 9.4 G/dl (12.0-16.0)
[2024-08-15 03:54] LABS: BASOPHILS # (AUTO) 0.1 X10'3 (0-0.2); BASOPHILS % (AUTO) 0.4 % (0-1); EOSINOPHILS # (AUTO) 0.1 X10'3 (0-0.9); EOSINOPHILS % (AUTO) 0.7 % (0-6); HEMOGLOBIN 8.7 g/dl (12.0-16.0); LYMPHOCYTES # (AUTO) 1.7 X10'3 (1.1-4.8); LYMPHOCYTES % (AUTO) 8.2 % (21-51); MEAN CORPUSCULAR HEMOGLOBIN 32.3 PG (27.0-31.0); MEAN CORPUSCULAR HGB CONC 32.1 g/dL (33.0-36.5); MEAN CORPUSCULAR VOLUME 100.4 FL (78-98); MEAN PLATELET VOLUME 7.5 FL (7.4-10.4); MONOCYTES # (AUTO) 0.6 X10'3 (0-0.9); NEUTROPHILS % (AUTO) 87.7 % (42-75); PLATELET COUNT 70 X10'3 (140-440); RED BLOOD COUNT 2.69 X10'6 (4.20-5.60); RED CELL DISTRIBUTION WIDTH 28.8 % (11.5-14.5); WHITE BLOOD COUNT 20.6 X10'3 (4.5-11.0)
[2024-08-15 04:16] LABS: ALANINE AMINOTRANSFERASE 29 U/L (12-78); ALBUMIN 3.7 G/DL (3.4-5.0); ALBUMIN/GLOBULIN RATIO 1.5 (1.1-1.5); ALKALINE PHOSPHATASE 124 IU/L (46-116); ANION GAP 5 (8-16); ASPARTATE AMINO TRANSFERASE 14 U/L (10-37); BILIRUBIN,TOTAL 1.2 MG/DL (0.1-1.0); BLOOD UREA NITROGEN 18 MG/DL (7-18); BUN/CREATININE RATIO 17.8 (10.0-20.0); CALCIUM 9.5 MG/DL (8.5-10.1); CALCIUM CVVH 9.5 MG/DL (8.5-10.1); CHLORIDE 108 MMOL/L (99-107); CREATININE 1.01 MG/DL (0.40-0.90); GLUCOSE 135 MG/DL (70-104); MAGNESIUM 1.7 MG/DL (1.5-2.4); PHOSPHORUS 1.5 MG/DL (2.3-4.5); POTASSIUM 3.2 MMOL/L (3.5-5.1); SODIUM 142 MMOL/L (135-145); TOTAL CARBON DIOXIDE 28.7 MMOL/L (24-32); TOTAL PROTEIN 6.2 G/DL (6.4-8.2); TRIGLYCERIDES 130 MG/DL (20-135); eCRCL 53 ML/MIN; eGFR 56 ML/MIN
[2024-08-15] MEDS: fludrocortisone acetate 0.1mg tablet NG SCH (08:04)
[2024-08-15 09:46] LABS: BASOPHILS % (AUTO) 0.2 % (0-1); EOSINOPHILS # (AUTO) 0.2 X10'3 (0-0.9); HEMATOCRIT 27.2 % (35.0-45.0); HEMOGLOBIN 8.8 g/dl (12.0-16.0); LYMPHOCYTES # (AUTO) 1.3 X10'3 (1.1-4.8); LYMPHOCYTES % (AUTO) 6.4 % (21-51); MEAN CORPUSCULAR HEMOGLOBIN 32.4 PG (27.0-31.0); MEAN CORPUSCULAR HGB CONC 32.2 g/dL (33.0-36.5); MEAN CORPUSCULAR VOLUME 100.6 FL (78-98); MEAN PLATELET VOLUME 7.4 FL (7.4-10.4); MONOCYTES # (AUTO) 0.6 X10'3 (0-0.9); MONOCYTES % (AUTO) 3.1 % (2-12); NEUTROPHILS # (AUTO) 18.1 X10'3 (1.8-7.7); NEUTROPHILS % (AUTO) 89.3 % (42-75); RED BLOOD COUNT 2.71 X10'6 (4.20-5.60); RED CELL DISTRIBUTION WIDTH 28.8 % (11.5-14.5); WHITE BLOOD COUNT 20.3 X10'3 (4.5-11.0)
[2024-08-15 10:03] LABS: ALBUMIN 3.4 G/DL (3.4-5.0); ANION GAP 7 (8-16); BLOOD UREA NITROGEN 18 MG/DL (7-18); BUN/CREATININE RATIO 17.5 (10.0-20.0); CALCIUM CVVH 9.1 MG/DL (8.5-10.1); CHLORIDE 108 MMOL/L (99-107); CREATININE 1.03 MG/DL (0.40-0.90); GLUCOSE 176 MG/DL (70-104); MAGNESIUM 1.6 MG/DL (1.5-2.4); POTASSIUM 3.9 MMOL/L (3.5-5.1); SODIUM 143 MMOL/L (135-145); TOTAL CARBON DIOXIDE 28.2 MMOL/L (24-32); eGFR 55 ML/MIN
[2024-08-15 10:22] LABS: PLATELET COUNT 43 X10'3 (140-440)
[2024-08-15] MEDS: VANCOMYCIN LEVEL IV ONE (14:40)
[2024-08-15 16:37] LABS: HEMOGLOBIN 9.1 g/dl (12.0-16.0); LYMPHOCYTES # (AUTO) 0.4 X10'3 (1.1-4.8)
[2024-08-15 16:38] LABS: BASOPHILS % (AUTO) 0.1 % (0-1); EOSINOPHILS % (AUTO) 0 % (0-6); HEMATOCRIT 27.5 % (35.0-45.0); LYMPHOCYTES % (AUTO) 2.1 % (21-51); MEAN CORPUSCULAR HEMOGLOBIN 33.1 PG (27.0-31.0); MEAN CORPUSCULAR VOLUME 100.3 FL (78-98); MEAN PLATELET VOLUME 7.2 FL (7.4-10.4); MONOCYTES # (AUTO) 0.5 X10'3 (0-0.9); MONOCYTES % (AUTO) 2.7 % (2-12); NEUTROPHILS # (AUTO) 19.4 X10'3 (1.8-7.7); NEUTROPHILS % (AUTO) 95.1 % (42-75); RED BLOOD COUNT 2.75 X10'6 (4.20-5.60); RED CELL DISTRIBUTION WIDTH 28.7 % (11.5-14.5); WHITE BLOOD COUNT 20.4 X10'3 (4.5-11.0)
[2024-08-15 16:43] LABS: PLATELET COUNT 25 X10'3 (140-440)
[2024-08-15 16:44] LABS: ALBUMIN 3.4 G/DL (3.4-5.0); ANION GAP 5 (8-16); BLOOD UREA NITROGEN 17 MG/DL (7-18); BUN/CREATININE RATIO 18.3 (10.0-20.0); CALCIUM CVVH 9.2 MG/DL (8.5-10.1); CHLORIDE 108 MMOL/L (99-107); CREATININE 0.93 MG/DL (0.40-0.90); GLUCOSE 197 MG/DL (70-104); MAGNESIUM 1.6 MG/DL (1.5-2.4); PHOSPHORUS 1.8 MG/DL (2.3-4.5); POTASSIUM 4.1 MMOL/L (3.5-5.1); SODIUM 142 MMOL/L (135-145); TOTAL CARBON DIOXIDE 28.7 MMOL/L (24-32); eGFR 62 ML/MIN
[2024-08-15 20:25] LABS: HEMOGLOBIN 8.5 g/dl (12.0-16.0); MEAN CORPUSCULAR VOLUME 100.9 FL (78-98)
[2024-08-15 20:26] LABS: HEMATOCRIT 26.7 % (35.0-45.0); MEAN CORPUSCULAR HEMOGLOBIN 32.3 PG (27.0-31.0); MEAN PLATELET VOLUME 7.7 FL (7.4-10.4); RED BLOOD COUNT 2.64 X10'6 (4.20-5.60); RED CELL DISTRIBUTION WIDTH 29.4 % (11.5-14.5); WHITE BLOOD COUNT 18.1 X10'3 (4.5-11.0)
[2024-08-15 20:34] LABS: PLATELET COUNT 23 X10'3 (140-440)
[2024-08-15] MEDS: heparin 1,000 units/ml 10ml inj HE ONE ×2 (21:10→21:18)
[2024-08-16] VITALS (49 sets, daily range): BP systolic 91–139; BP diastolic 42–79; PULSE 65–114; RESP 9–22; TEMP 98.5–98.8; O2SAT 92–99
[2024-08-16 02:38] LABS: EOSINOPHILS % (AUTO) 0.1 % (0-6); HEMOGLOBIN 8.4 g/dl (12.0-16.0); LYMPHOCYTES # (AUTO) 0.6 X10'3 (1.1-4.8); MONOCYTES # (AUTO) 0.7 X10'3 (0-0.9)
[2024-08-16 02:42] LABS: BASOPHILS # (AUTO) 0.1 X10'3 (0-0.2); BASOPHILS % (AUTO) 0.6 % (0-1); HEMATOCRIT 25.9 % (35.0-45.0); LYMPHOCYTES % (AUTO) 3.4 % (21-51); MEAN CORPUSCULAR HEMOGLOBIN 32.7 PG (27.0-31.0); MEAN CORPUSCULAR HGB CONC 32.2 g/dL (33.0-36.5); MEAN CORPUSCULAR VOLUME 101.5 FL (78-98); MEAN PLATELET VOLUME 7.9 FL (7.4-10.4); MONOCYTES % (AUTO) 3.6 % (2-12); NEUTROPHILS # (AUTO) 17.2 X10'3 (1.8-7.7); NEUTROPHILS % (AUTO) 92.3 % (42-75); RED BLOOD COUNT 2.55 X10'6 (4.20-5.60); RED CELL DISTRIBUTION WIDTH 28.9 % (11.5-14.5); WHITE BLOOD COUNT 18.7 X10'3 (4.5-11.0)
[2024-08-16 02:45] LABS: PLATELET COUNT 22 X10'3 (140-440)
[2024-08-16 02:59] LABS: ALANINE AMINOTRANSFERASE 34 U/L (12-78); ALBUMIN 2.9 G/DL (3.4-5.0); ALBUMIN/GLOBULIN RATIO 1.1 (1.1-1.5); ALKALINE PHOSPHATASE 171 IU/L (46-116); ANION GAP 7 (8-16); ASPARTATE AMINO TRANSFERASE 21 U/L (10-37); BILIRUBIN,TOTAL 0.9 MG/DL (0.1-1.0); BLOOD UREA NITROGEN 25 MG/DL (7-18); BUN/CREATININE RATIO 18.9 (10.0-20.0); CALCIUM 8.6 MG/DL (8.5-10.1); CHLORIDE 108 MMOL/L (99-107); CREATININE 1.32 MG/DL (0.40-0.90); GLUCOSE 189 MG/DL (70-104); MAGNESIUM 1.5 MG/DL (1.5-2.4); PHOSPHORUS 2.4 MG/DL (2.3-4.5); POTASSIUM 4.3 MMOL/L (3.5-5.1); PREALBUMIN 12.8 MG/DL (19-36); SODIUM 143 MMOL/L (135-145); TOTAL CARBON DIOXIDE 27.6 MMOL/L (24-32); TOTAL PROTEIN 5.6 G/DL (6.4-8.2); eCRCL 41 ML/MIN; eGFR 41 ML/MIN
[2024-08-16 04:58] LABS: ABG HCO3 23.1 mmol/L (21.0-28.0); ABG PCO2 (T) 36.3 mmHg (32.0-45.0); ABG PH (T) 7.424 (7.350-7.450); ABG PO2 (T) 71.5 mmHg (83.0-108.0); ALLEN'S TEST POSITIVE; FCOHb 0.6 % (0.5-1.5); FMetHb 0.3 % (0.0-1.5); FO2Hb 94.1 % (94.0-98.0); MODE VENT - AC; PATIENT TEMPERATURE 37.3; PEEP 5 cm H2O; RESPIRATORY RATE 20 b/min; TIDAL VOLUME 350 mL
[2024-08-16] MEDS: magnesium sulf-water 4G/100mL 100 ML IV PRN (05:10)
[2024-08-16 08:11] LABS: FOLATE SERUM(FOLIC) 4.8 ng/mL (>3.0)
[2024-08-16 09:40] LABS: HEMATOCRIT 25.5 % (35.0-45.0); HEMOGLOBIN 8.2 g/dl (12.0-16.0); MEAN CORPUSCULAR HEMOGLOBIN 32.6 PG (27.0-31.0); MEAN CORPUSCULAR HGB CONC 32.2 g/dL (33.0-36.5); MEAN CORPUSCULAR VOLUME 101.2 FL (78-98); RED BLOOD COUNT 2.52 X10'6 (4.20-5.60); WHITE BLOOD COUNT 16.2 X10'3 (4.5-11.0)
[2024-08-16 09:43] LABS: PLATELET COUNT 18 X10'3 (140-440)
[2024-08-16] MEDS: VANCOmycin 1250MG/NS 250ml Bag 250 ML IV SCH (15:47)
[2024-08-16] MEDS ORDERED: sevoflurane 250ml liquid IH ONE (19:41)
[2024-08-16] MEDS ORDERED: dextrose 50%-water 50ml dispensing syringe IV PRN ×2 (21:00)
[2024-08-16] MEDS ORDERED: DEXTROSE 15 GM of carb/4 tabs (each vial/BOTTLE has 4 tablets) PO PRN ×2 (21:00)
[2024-08-16] MEDS ORDERED: glucagon, human recombinant 1mg kit SUBCUT PRN (21:00)
[2024-08-16] MEDS: MEROPENEM 500MG/50ML-NS IVPB 50 ML IV SCH (21:15)
[2024-08-16 21:38] LABS: HEMOGLOBIN A1C 5.6 % (4.5-6.2)
[2024-08-16] MEDS: dextrose 5%-1/2 normal saline 1,000 ML IV PRN (21:54)
[2024-08-16 23:30] LABS: HEMATOCRIT 25.1 % (35.0-45.0); HEMOGLOBIN 8.4 g/dl (12.0-16.0); MEAN CORPUSCULAR HEMOGLOBIN 33.7 PG (27.0-31.0); MEAN CORPUSCULAR HGB CONC 33.4 g/dL (33.0-36.5); MEAN CORPUSCULAR VOLUME 100.9 FL (78-98); MEAN PLATELET VOLUME 8.2 FL (7.4-10.4); PLATELET COUNT 76 X10'3 (140-440); RED BLOOD COUNT 2.48 X10'6 (4.20-5.60); RED CELL DISTRIBUTION WIDTH 28.5 % (11.5-14.5)
[2024-08-17] VITALS (60 sets, daily range): BP systolic 100–133; BP diastolic 51–70; PULSE 61–110; RESP 10–20; O2SAT 92–100
[2024-08-17 02:48] LABS: ALANINE AMINOTRANSFERASE 34 U/L (12-78); ALKALINE PHOSPHATASE 136 IU/L (46-116); ANION GAP 8 (8-16); ASPARTATE AMINO TRANSFERASE 13 U/L (10-37); BILIRUBIN,TOTAL 0.9 MG/DL (0.1-1.0); BLOOD UREA NITROGEN 41 MG/DL (7-18); BUN/CREATININE RATIO 21.2 (10.0-20.0); CHLORIDE 107 MMOL/L (99-107); CREATININE 1.93 MG/DL (0.40-0.90); GLUCOSE 152 MG/DL (70-104); POTASSIUM 4.4 MMOL/L (3.5-5.1); SODIUM 141 MMOL/L (135-145); TOTAL CARBON DIOXIDE 26.1 MMOL/L (24-32); TOTAL PROTEIN 6.1 G/DL (6.4-8.2); eCRCL 28 ML/MIN; eGFR 27 ML/MIN
[2024-08-17 02:51] LABS: HEMATOCRIT 25.9 % (35.0-45.0); HEMOGLOBIN 8.5 g/dl (12.0-16.0); MEAN CORPUSCULAR HEMOGLOBIN 33.1 PG (27.0-31.0); MEAN CORPUSCULAR HGB CONC 32.6 g/dL (33.0-36.5); MEAN CORPUSCULAR VOLUME 101.4 FL (78-98); MEAN PLATELET VOLUME 8.4 FL (7.4-10.4); PLATELET COUNT 69 X10'3 (140-440); RED BLOOD COUNT 2.55 X10'6 (4.20-5.60); RED CELL DISTRIBUTION WIDTH 28.7 % (11.5-14.5)
[2024-08-17 03:43] LABS: ABG BASE EXCESS -2.3 mmol/L (-2.0-3.0); ABG HCO3 22.1 mmol/L (21.0-28.0); ABG OXYGEN SATURATION 95.7 % (94.0-98.0); ABG PCO2 (T) 35.1 mmHg (32.0-45.0); ABG PH (T) 7.414 (7.350-7.450); ABG PO2 (T) 72.2 mmHg (83.0-108.0); ALLEN'S TEST POSITIVE; FHHb 4.2 % (0.0-5.0); FMetHb 0.3 % (0.0-1.5); FO2Hb 94.5 % (94.0-98.0); MODE VENT - SIMV; PATIENT TEMPERATURE 36.2; PEEP 5 cm H2O; RESPIRATORY RATE 20 b/min; TIDAL VOLUME 350 mL; TOTAL HEMOGLOBIN 9.1 G/dl (12.0-16.0)
[2024-08-17 07:39] LABS: MAGNESIUM 2.5 MG/DL (1.5-2.4); PHOSPHORUS 3.7 MG/DL (2.3-4.5)
[2024-08-17] MEDS ORDERED: vancomycin/NS 1 GM ADD-VANTAGE 250 ML X 1 DOSE IV PRN (07:50)
[2024-08-17] MEDS ORDERED: acetaminophen 325mg/10.15ml oral unit dose solution PEG PRN (11:48)
[2024-08-17] MEDS ORDERED: DEXTROSE 15 GM of carb/4 tabs (each vial/BOTTLE has 4 tablets) PEG PRN ×2 (11:49)
[2024-08-17] MEDS ORDERED: magnesium hydroxide 30ml (MOM) UD suspension PEG PRN (11:50)
[2024-08-17] MEDS ORDERED: POTASSIUM CHLORIDE 20 MEQ/15 ML oral solution PEG PRN ×2 (11:51→11:52)
[2024-08-17] MEDS ORDERED: VANCOMYCIN LEVEL IV ONE (12:00)
[2024-08-17 13:12] LABS: LIPOPROTEIN A 9.2 nmol/L (<75.0)
[2024-08-17] MEDS: docusate sodium 100mg/10ml UD cup PEG SCH (20:37)
[2024-08-17] MEDS: polyethylene glycol 3350 17gm powd pack PEG SCH (20:37)
[2024-08-17] MEDS: amiodarone 200mg tablet PEG SCH (20:38)
[2024-08-17] MEDS: quetiapine 100mg tablet PEG SCH (20:38)
[2024-08-18] VITALS (40 sets, daily range): BP systolic 94–119; BP diastolic 51–67; PULSE 78–96; RESP 11–24; O2SAT 91–100
[2024-08-18 02:55] LABS: HEMOGLOBIN 7.7 g/dl (12.0-16.0); RED BLOOD COUNT 2.32 X10'6 (4.20-5.60); WHITE BLOOD COUNT 8.2 X10'3 (4.5-11.0)
[2024-08-18 02:57] LABS: BASOPHILS % (AUTO) 0.2 % (0-1); EOSINOPHILS % (AUTO) 0.1 % (0-6); HEMATOCRIT 23.6 % (35.0-45.0); LYMPHOCYTES # (AUTO) 0.4 X10'3 (1.1-4.8); LYMPHOCYTES % (AUTO) 5.4 % (21-51); MEAN CORPUSCULAR HGB CONC 32.5 g/dL (33.0-36.5); MEAN CORPUSCULAR VOLUME 101.7 FL (78-98); MEAN PLATELET VOLUME 8.6 FL (7.4-10.4); MONOCYTES # (AUTO) 0.5 X10'3 (0-0.9); MONOCYTES % (AUTO) 5.5 % (2-12); NEUTROPHILS # (AUTO) 7.3 X10'3 (1.8-7.7); NEUTROPHILS % (AUTO) 88.8 % (42-75); RED CELL DISTRIBUTION WIDTH 28.1 % (11.5-14.5)
[2024-08-18] MEDS ORDERED: VANCOMYCIN LEVEL IV SCH (03:00)
[2024-08-18 03:15] LABS: MAGNESIUM 2.3 MG/DL (1.5-2.4); PHOSPHORUS 4.2 MG/DL (2.3-4.5); PLATELET COUNT 48 X10'3 (140-440)
[2024-08-18 03:47] LABS: ALANINE AMINOTRANSFERASE 33 U/L (12-78); ALBUMIN 2.5 G/DL (3.4-5.0); ALBUMIN/GLOBULIN RATIO 0.8 (1.1-1.5); ALKALINE PHOSPHATASE 126 IU/L (46-116); ANION GAP 11 (8-16); ASPARTATE AMINO TRANSFERASE 26 U/L (10-37); BILIRUBIN,TOTAL 0.7 MG/DL (0.1-1.0); BLOOD UREA NITROGEN 50 MG/DL (7-18); BUN/CREATININE RATIO 19.6 (10.0-20.0); CALCIUM 8.6 MG/DL (8.5-10.1); CHLORIDE 104 MMOL/L (99-107); CREATININE 2.55 MG/DL (0.40-0.90); GLUCOSE 139 MG/DL (70-104); POTASSIUM 4.4 MMOL/L (3.5-5.1); SODIUM 136 MMOL/L (135-145); TOTAL CARBON DIOXIDE 21.4 MMOL/L (24-32); TOTAL PROTEIN 5.5 G/DL (6.4-8.2); eCRCL 21 ML/MIN; eGFR 19 ML/MIN
[2024-08-18 04:01] LABS: ABG BASE EXCESS -4.6 mmol/L (-2.0-3.0); ABG HCO3 18.4 mmol/L (21.0-28.0); ABG OXYGEN SATURATION 93.8 % (94.0-98.0); ABG PCO2 (T) 25.6 mmHg (32.0-45.0); ABG PH (T) 7.471 (7.350-7.450); ABG PO2 (T) 65.3 mmHg (83.0-108.0); ALLEN'S TEST POSITIVE; FCOHb 0.6 % (0.5-1.5); FHHb 6.1 % (0.0-5.0); FMetHb 0.3 % (0.0-1.5); MODE VENT - CPAP; PATIENT TEMPERATURE 36.6; TOTAL HEMOGLOBIN 8.3 G/dl (12.0-16.0)
[2024-08-18] MEDS: MULTIVIT-MIN/FERROUS GLUCONATE 9 MG/15 ML LIQUID PEG SCH (08:52)
[2024-08-18] MEDS: cyanocobalamin 500mcg tablet PEG SCH (08:52)
[2024-08-18] MEDS: fludrocortisone acetate 0.1mg tablet PEG SCH (08:53)
[2024-08-18] MEDS: thiamine 100mg tablet PEG SCH (08:53)
[2024-08-18] MEDS: folic acid 1mg tablet PEG SCH (08:53)
[2024-08-18] MEDS: potassium Cl 20mEq/100mL bag 100 ML IV ONE (16:29)
[2024-08-19] VITALS (42 sets, daily range): BP systolic 45–112; BP diastolic 44–63; PULSE 71–107; RESP 13–22; TEMP 97.5–98.2; O2SAT 91–100
[2024-08-19 02:29] LABS: BASOPHILS % (AUTO) 0.1 % (0-1); EOSINOPHILS % (AUTO) 0 % (0-6); HEMATOCRIT 23.8 % (35.0-45.0); HEMOGLOBIN 7.7 g/dl (12.0-16.0); LYMPHOCYTES # (AUTO) 0.2 X10'3 (1.1-4.8); LYMPHOCYTES % (AUTO) 3.1 % (21-51); MEAN CORPUSCULAR HEMOGLOBIN 33.2 PG (27.0-31.0); MEAN CORPUSCULAR HGB CONC 32.4 g/dL (33.0-36.5); MEAN CORPUSCULAR VOLUME 102.5 FL (78-98); MEAN PLATELET VOLUME 8.9 FL (7.4-10.4); MONOCYTES # (AUTO) 0.4 X10'3 (0-0.9); MONOCYTES % (AUTO) 5.6 % (2-12); NEUTROPHILS # (AUTO) 6.7 X10'3 (1.8-7.7); NEUTROPHILS % (AUTO) 91.2 % (42-75); RED BLOOD COUNT 2.32 X10'6 (4.20-5.60); RED CELL DISTRIBUTION WIDTH 27.6 % (11.5-14.5); WHITE BLOOD COUNT 7.3 X10'3 (4.5-11.0)
[2024-08-19 02:43] LABS: PLATELET COUNT 41 X10'3 (140-440)
[2024-08-19 02:48] LABS: ALANINE AMINOTRANSFERASE 37 U/L (12-78); ALBUMIN 2.4 G/DL (3.4-5.0); ALBUMIN/GLOBULIN RATIO 0.8 (1.1-1.5); ALKALINE PHOSPHATASE 145 IU/L (46-116); ANION GAP 12 (8-16); ASPARTATE AMINO TRANSFERASE 25 U/L (10-37); BILIRUBIN,TOTAL 0.6 MG/DL (0.1-1.0); BLOOD UREA NITROGEN 65 MG/DL (7-18); CALCIUM 8.6 MG/DL (8.5-10.1); CHLORIDE 105 MMOL/L (99-107); GLUCOSE 165 MG/DL (70-104); MAGNESIUM 2.2 MG/DL (1.5-2.4); PHOSPHORUS 5.1 MG/DL (2.3-4.5); POTASSIUM 4.3 MMOL/L (3.5-5.1); SODIUM 138 MMOL/L (135-145); TOTAL CARBON DIOXIDE 20.8 MMOL/L (24-32); TOTAL PROTEIN 5.4 G/DL (6.4-8.2); eCRCL 17 ML/MIN; eGFR 15 ML/MIN
[2024-08-19] MEDS: EPOETIN ALFA-EPBX 20,000 UNIT/ML 1 ML MDV IV ONE (10:44)
[2024-08-19] MEDS: heparin 1,000 units/ml 10ml inj HE ONE ×2 (10:45)
[2024-08-19] MEDS: heparin 1,000 units/ml 10ml inj IV ONE (10:45)
[2024-08-19] MEDS: albumin (human) 25% 100ml IV 200 ML IV PRN (12:20)
[2024-08-19] MEDS ORDERED: VANCOMYCIN LEVEL IV ONE (14:30)
[2024-08-19] MEDS ORDERED: albuterol 2.5 MG/3 ML nebule NEB PRN (15:55)
[2024-08-19] MEDS: ipratropium/albuterol 3ml nebule NEB SCH (20:40)
[2024-08-20] VITALS (14 sets, daily range): BP systolic 112–125; BP diastolic 58–68; PULSE 82–97; RESP 17–22; TEMP 97.1–97.7; O2SAT 95–98
[2024-08-20 07:34] LABS: ALANINE AMINOTRANSFERASE 40 U/L (12-78); ALBUMIN 2.9 G/DL (3.4-5.0); ALBUMIN/GLOBULIN RATIO 0.9 (1.1-1.5); ALKALINE PHOSPHATASE 163 IU/L (46-116); ANION GAP 12 (8-16); ASPARTATE AMINO TRANSFERASE 21 U/L (10-37); BILIRUBIN,TOTAL 0.6 MG/DL (0.1-1.0); BLOOD UREA NITROGEN 48 MG/DL (7-18); BUN/CREATININE RATIO 20.8 (10.0-20.0); CALCIUM 8.9 MG/DL (8.5-10.1); CHLORIDE 108 MMOL/L (99-107); CREATININE 2.31 MG/DL (0.40-0.90); GLUCOSE 163 MG/DL (70-104); POTASSIUM 3.5 MMOL/L (3.5-5.1); PREALBUMIN 20.2 MG/DL (19-36); SODIUM 145 MMOL/L (135-145); TOTAL CARBON DIOXIDE 25.2 MMOL/L (24-32); eCRCL 23 ML/MIN; eGFR 22 ML/MIN
[2024-08-20 08:47] LABS: BASOPHILS % (AUTO) 0.1 % (0-1); EOSINOPHILS % (AUTO) 0.1 % (0-6); HEMATOCRIT 27.7 % (35.0-45.0); HEMOGLOBIN 9.1 g/dl (12.0-16.0); LYMPHOCYTES # (AUTO) 0.4 X10'3 (1.1-4.8); LYMPHOCYTES % (AUTO) 5.3 % (21-51); MEAN CORPUSCULAR HEMOGLOBIN 33.6 PG (27.0-31.0); MEAN CORPUSCULAR HGB CONC 32.9 g/dL (33.0-36.5); MEAN CORPUSCULAR VOLUME 102.1 FL (78-98); MEAN PLATELET VOLUME 9.2 FL (7.4-10.4); MONOCYTES # (AUTO) 0.5 X10'3 (0-0.9); MONOCYTES % (AUTO) 5.7 % (2-12); NEUTROPHILS # (AUTO) 7.2 X10'3 (1.8-7.7); NEUTROPHILS % (AUTO) 88.8 % (42-75); RED BLOOD COUNT 2.71 X10'6 (4.20-5.60); RED CELL DISTRIBUTION WIDTH 26.9 % (11.5-14.5); WHITE BLOOD COUNT 8.1 X10'3 (4.5-11.0)
[2024-08-20 08:57] LABS: PLATELET COUNT 35 X10'3 (140-440)
[2024-08-20 09:22] LABS: PLATELET ESTIMATE DECREASED
[2024-08-20 09:25] LABS: ANISOCYTOSIS 3+; BURR CELLS FEW; HYPOCHROMASIA 1+; POLYCHROMASIA 1+; TARGET CELLS 1+; TEAR DROP CELLS FEW
[2024-08-21] VITALS (23 sets, daily range): BP systolic 86–124; BP diastolic 40–60; PULSE 84–101; RESP 16–24; TEMP 97.7–98.7; O2SAT 86–100
[2024-08-21] MEDS: albumin (human) 25% 100ml IV 100 ML IV PRN (06:35)
[2024-08-21 07:11] LABS: ALANINE AMINOTRANSFERASE 37 U/L (12-78); ALBUMIN 2.4 G/DL (3.4-5.0); ALBUMIN/GLOBULIN RATIO 0.8 (1.1-1.5); ALKALINE PHOSPHATASE 170 IU/L (46-116); ANION GAP 9 (8-16); ASPARTATE AMINO TRANSFERASE 30 U/L (10-37); BILIRUBIN,TOTAL 0.6 MG/DL (0.1-1.0); BLOOD UREA NITROGEN 48 MG/DL (7-18); BUN/CREATININE RATIO 21.2 (10.0-20.0); CALCIUM 8.8 MG/DL (8.5-10.1); CHLORIDE 107 MMOL/L (99-107); CREATININE 2.26 MG/DL (0.40-0.90); GLUCOSE 104 MG/DL (70-104); POTASSIUM 3.3 MMOL/L (3.5-5.1); SODIUM 141 MMOL/L (135-145); TOTAL CARBON DIOXIDE 24.8 MMOL/L (24-32); TOTAL PROTEIN 5.5 G/DL (6.4-8.2); eCRCL 24 ML/MIN; eGFR 22 ML/MIN
[2024-08-21 07:19] LABS: BASOPHILS % (AUTO) 0.4 % (0-1); EOSINOPHILS # (AUTO) 0.2 X10'3 (0-0.9); HEMATOCRIT 27.1 % (35.0-45.0); HEMOGLOBIN 8.8 g/dl (12.0-16.0); LYMPHOCYTES # (AUTO) 0.9 X10'3 (1.1-4.8); LYMPHOCYTES % (AUTO) 11.7 % (21-51); MEAN CORPUSCULAR HEMOGLOBIN 32.9 PG (27.0-31.0); MEAN CORPUSCULAR HGB CONC 32.4 g/dL (33.0-36.5); MEAN CORPUSCULAR VOLUME 101.5 FL (78-98); MEAN PLATELET VOLUME 9.9 FL (7.4-10.4); MONOCYTES # (AUTO) 0.1 X10'3 (0-0.9); MONOCYTES % (AUTO) 1.6 % (2-12); NEUTROPHILS # (AUTO) 6.8 X10'3 (1.8-7.7); NEUTROPHILS % (AUTO) 84.3 % (42-75); RED BLOOD COUNT 2.67 X10'6 (4.20-5.60); RED CELL DISTRIBUTION WIDTH 25.4 % (11.5-14.5)
[2024-08-21 07:26] LABS: PLATELET COUNT 33 X10'3 (140-440)
[2024-08-21] MEDS: acetaminophen 325mg/10.15ml oral unit dose solution PEG PRN (07:59)
[2024-08-21] MEDS: heparin 1,000 units/ml 10ml inj IV ONE (08:18)
[2024-08-21] MEDS: heparin 1,000 units/ml 10ml inj HE ONE (08:18)
[2024-08-21] MEDS: EPOETIN ALFA-EPBX 20,000 UNIT/ML 1 ML MDV IV ONE (08:20)
[2024-08-22 02:00] VITALS: BP 101/56; PULSE 100; RESP 18; TEMP 98.9; O2SAT 99
[2024-08-22 06:00] VITALS: BP 121/68; PULSE 85; RESP 12; TEMP 96.7; O2SAT 92
[2024-08-22 11:00] VITALS: BP 95/43; PULSE 97; RESP 13; TEMP 96.7; O2SAT 90
[2024-08-22 15:00] VITALS: BP 116/57; PULSE 101; RESP 27; TEMP 97.2; O2SAT 91
== END 2024-08-22 17:16 | disposition hospice, home (50) | DRG 720 ==
LOC: ER 11:19 → ED HOLD 20:02 → CMPBEDREQ 08-01 17:06 → EDBEDREQ 08-04 01:17 → CICU 2S 08-04 01:48 → PCU 3S 08-19 17:22
PROVIDERS: ADMIT Internal Medicine Critical Care Medicine; ATTEND Internal Medicine Critical Care Medicine
PROC: 02HV33Z Insertion of Infusion Device into Superior Vena Cava, Percutaneous Approach (ICD-10-PCS; principal; 2024-07-31)
PROC: B548ZZA Ultrasonography of Superior Vena Cava, Guidance (ICD-10-PCS; 2024-07-31)
PROC: BW251ZZ Computerized Tomography (CT Scan) of Chest, Abdomen and Pelvis using Low Osmolar Contrast (ICD-10-PCS; 2024-07-31)
PROC: 30233N1 Transfusion of Nonautologous Red Blood Cells into Peripheral Vein, Percutaneous Approach (ICD-10-PCS; 2024-08-02)
PROC: 5A09357 Assistance with Respiratory Ventilation, Less than 24 Consecutive Hours, Continuous Positive Airway Pressure (ICD-10-PCS; 2024-08-03)
PROC: 5A09357 Assistance with Respiratory Ventilation, Less than 24 Consecutive Hours, Continuous Positive Airway Pressure (ICD-10-PCS; 2024-08-05)
PROC: 5A0945A Assistance with Respiratory Ventilation, 24-96 Consecutive Hours, High Flow/Velocity Cannula (ICD-10-PCS; 2024-08-06)
PROC: 5A1945Z Respiratory Ventilation, 24-96 Consecutive Hours (ICD-10-PCS; 2024-08-07)
PROC: 5A09357 Assistance with Respiratory Ventilation, Less than 24 Consecutive Hours, Continuous Positive Airway Pressure (ICD-10-PCS; 2024-08-07)
PROC: 0BH17EZ Insertion of Endotracheal Airway into Trachea, Via Natural or Artificial Opening (ICD-10-PCS; 2024-08-07)
PROC: 5A0935A Assistance with Respiratory Ventilation, Less than 24 Consecutive Hours, High Flow/Velocity Cannula (ICD-10-PCS; 2024-08-11)
PROC: 5A1955Z Respiratory Ventilation, Greater than 96 Consecutive Hours (ICD-10-PCS; 2024-08-12)
PROC: 5A0935A Assistance with Respiratory Ventilation, Less than 24 Consecutive Hours, High Flow/Velocity Cannula (ICD-10-PCS; 2024-08-12)
PROC: 02PYX3Z Removal of Infusion Device from Great Vessel, External Approach (ICD-10-PCS; 2024-08-12)
PROC: 02HV33Z Insertion of Infusion Device into Superior Vena Cava, Percutaneous Approach (ICD-10-PCS; 2024-08-12)
PROC: 0BH17EZ Insertion of Endotracheal Airway into Trachea, Via Natural or Artificial Opening (ICD-10-PCS; 2024-08-12)
PROC: 02HV33Z Insertion of Infusion Device into Superior Vena Cava, Percutaneous Approach (ICD-10-PCS; 2024-08-13)
PROC: B548ZZA Ultrasonography of Superior Vena Cava, Guidance (ICD-10-PCS; 2024-08-13)
PROC: 5A1D90Z Performance of Urinary Filtration, Continuous, Greater than 18 hours Per Day (ICD-10-PCS; 2024-08-13)
PROC: 30233R1 Transfusion of Nonautologous Platelets into Peripheral Vein, Percutaneous Approach (ICD-10-PCS; 2024-08-14)
PROC: 5A1D90Z Performance of Urinary Filtration, Continuous, Greater than 18 hours Per Day (ICD-10-PCS; 2024-08-14)
PROC: 0DH63UZ Insertion of Feeding Device into Stomach, Percutaneous Approach (ICD-10-PCS; 2024-08-16)
PROC: 5A1D70Z Performance of Urinary Filtration, Intermittent, Less than 6 Hours Per Day (ICD-10-PCS; 2024-08-19)
PROC: 5A1D70Z Performance of Urinary Filtration, Intermittent, Less than 6 Hours Per Day (ICD-10-PCS; 2024-08-21)
DX: A41.9 Sepsis, unspecified organism (principal); N17.0 Acute kidney failure with tubular necrosis; J80 Acute respiratory distress syndrome; R65.21 Severe sepsis with septic shock; G93.41 Metabolic encephalopathy; E43 Unspecified severe protein-calorie malnutrition; K29.21 Alcoholic gastritis with bleeding; J18.9 Pneumonia, unspecified organism; Z20.822 Contact with and (suspected) exposure to COVID-19; E88.09 Other disorders of plasma-protein metabolism, not elsewhere classified; D53.9 Nutritional anemia, unspecified; E11.65 Type 2 diabetes mellitus with hyperglycemia; E86.0 Dehydration; I48.91 Unspecified atrial fibrillation; E87.6 Hypokalemia; Z16.24 Resistance to multiple antibiotics; F17.210 Nicotine dependence, cigarettes, uncomplicated; E87.70 Fluid overload, unspecified; I10 Essential (primary) hypertension; G40.909 Epilepsy, unspecified, not intractable, without status epilepticus; J45.909 Unspecified asthma, uncomplicated; N39.0 Urinary tract infection, site not specified; K76.9 Liver disease, unspecified; B96.4 Proteus (mirabilis) (morganii) as the cause of diseases classified elsewhere; E83.59 Other disorders of calcium metabolism; Z86.711 Personal history of pulmonary embolism; Z86.718 Personal history of other venous thrombosis and embolism; Z93.3 Colostomy status; Z88.8 Allergy status to other drugs, medicaments and biological substances; Z68.27 Body mass index [BMI] 27.0-27.9, adult
CPT/HCPCS: 36415; 36430; 36600; 43239; 70450; 71045; 71046; 71250; 73090; 73564; 74176; 76700; 76770; 80048; 80053; 80069; 80202; 81001; 81479; 82140; 82272; 82330; 82570; 82607; 82728; 82746; 82803; 82948; 83036; 83540; 83550; 83605; 83615; 83695; 83735; 83880; 83891; 83894; 83898; 83930; 84100; 84132; 84134; 84145; 84155; 84156; 84165; 84439; 84443; 84478; 84484; 85007; 85008; 85018; 85025; 85027; 85379; 85384; 85610; 85651; 85730; 86022; 86038; 86060; 86160; 86703; 86885; 86900; 86901; 86920; 87040; 87070; 87077; 87081; 87088; 87186; 87324; 87340; 87449; 87502; 87503; 87811; 92508; 92616; 93005; 93306; 94002; 94003; 94640; 94660; 94664; 94668; 94760; 94799; 97110; 97161; 97530; 99152; 99291; A4215; A4314; A4333; A4398; A4421; A4615; A4618; A4620; A4624; A4628; A5200; A6196; A6209; A6212; A6213; A6222; A6223; A6258; A6260; A6402; A6446; A6449; A7000; A7015; B4087; C1751; C1758; E1594; G0257; G0378; J0171; J0282; J0696; J1644; J1720; J1815; J1940; J2060; J2185; J2248; J2250; J2270; J2405; J2470; J2543; J2704; J3010; J3370; J3372; J3411; J3475; J3480; J3490; J7030; J7040; J7050; J7060; J7070; J7120; P9016; P9035; P9045; P9047; Q4081